=== PATIENT | female | born 1975 | race Caucasian/White ===

== ENCOUNTER 2023-08-17 10:33 | Outpatient (OUT) | payer MEDICAID, SELFPAY ==
--- NOTE | 2023-08-17 11:03 | MM_ITS ---
Patient Name: LUCRECIA LAWTON MR#: [id number] : 1975 Exam Date: 08/17/2023 Ordering Doctor: DR ZANE MANTILLA RADIOLOGY REPORT PROCEDURE: MM TOMOSYNTHESIS SCREENING BI COMPARISON: MG MAMM SCREEN 3D BONI CAD, 11/11/2021. INDICATIONS: Screening Calculator Name NCI Breast Cancer Risk Assessment Tool 5 Year Breast Cancer Risk 1.20% Lifetime Breast Cancer Risk 12.80% Personal Breast Cancer No Personal Ovarian Cancer No Treatments partial nephrectomy Family Cancers Brother with leukemia cancer at age 24; Mother with uterine cancer at age ~40; Grandmother-maternal with cervical cancer at age ~36. LOCATION: [facility] BREAST COMPOSITION: Extremely dense, which lowers the sensitivity of mammography. FINDINGS: DIAGNOSTIC CATEGORY 2--BENIGN FINDING. NO CHANGE FROM COMPARISON. Scattered benign-appearing calcifications are present. Scattered benign-appearing lymph nodes are present. RIGHT BREAST: No significant suspicious finding. LEFT BREAST: No significant suspicious finding. RECOMMENDATIONS: ROUTINE MAMMOGRAM AND CLINICAL EVALUATION IN 12 MONTHS. PLEASE NOTE: A NORMAL MAMMOGRAM DOES NOT EXCLUDE THE POSSIBILITY OF BREAST CANCER. A CLINICALLY SUSPICIOUS PALPABLE LUMP SHOULD BE BIOPSIED. Dictated by: Rinku Navas MD on 08/17/2023 at 12:14 Approved by: Rinku Navas MD on 08/17/2023 at 12:17
== END 2023-08-17 10:34 | disposition home or self-care (01) ==
LOC: MAMMO 10:33
PROVIDERS: PCP Internal Medicine; Visit Provider Obstetrics & Gynecology
DX: Z12.31 Encounter for screening mammogram for malignant neoplasm of breast (principal); Z80.6 Family history of leukemia; Z80.8 Family history of malignant neoplasm of other organs or systems
CPT/HCPCS: 77063; 77067

== ENCOUNTER 2024-01-12 08:55 | Outpatient (OUT) | payer OTHER, SELFPAY ==
--- OUTSIDE RECORDS SUMMARY | 2024-01-12 09:01 | XMS_ITS | CCD ---
Author Organization [facility] Care Team Providers Care Security Trainer Name Role Phone PHYSICIAN, DEFAULT Unavailable Unavailable PHYSICIAN, DEFAULT Unavailable Unavailable CICI MURPHY Unavailable Unavailable ELVIRA WHIPPLE Unavailable Unavailable DWAINE PAZ Unavailable Unavailable Elvira Whipple~[phone] UNKNOWN Primary Care Unavailable GUILLE GOINS Admitting Unavailable GUILLE GOINS Attending Unavailable GUILLE GOINS Referring Unavailable HaJoe mayerit Melvin Admitting Unavailable Hamoreno Astrit H Attending Unavailable Elvira Whipple~[phone] UNKNOWN Primary Care Unavailable Elliott Mandujano Admitting Unavailable Elliott Mandujano Attending Unavailable Elvira Whipple~[phone] UNKNOWN Primary Care Unavailable Trae Julian MD Primary Care Provider Trae [place] Unavailable [phone] Trae Julian MD Unavailable MD Trae Julian Primary Care Provider [phone] DO Zane Mantilla Attending Provider IESHA, DR LARKIN Admitting Unavailable IESHA, DR LARKIN Attending Unavailable IESHA, DR LARKIN Referring Unavailable IESHA, DR LARKIN Primary Care Unavailable IESHA, DR LARKIN Consulting Unavailable IESHA, DR LARKIN Primary Care Unavailable MYNOR LIANG Admitting Unavailable MYNOR LIANG Attending Unavailable RANDY, DR ALEXANDRA Colin Consulting Unavailable DAOMN, DR ADAIR Consulting Unavailable MYNOR LIANG Consulting Unavailable MIGNON TAVAREZ Consulting Unavailable JOSE RAFAEL, DR DEGROOT Admitting Unavailable VISCI, DR DEGROOT Attending Unavailable IESHA, DR LARKIN Primary Care Unavailable DAYTON, DR NAKIA Acharya Consulting Unavailable VISCI, DR DEGROOT Consulting Unavailable IESHA, DR LARKIN Admitting Unavailable IESHA, DR LARKIN Attending Unavailable IESHA, DR LARKIN Primary Care Unavailable MARÍA SABILLON Consulting Unavailable IESHA, DR LARKIN Consulting Unavailable VISCI, DR DEGROOT Admitting Unavailable VISCI, DR DEGROOT Attending Unavailable HILL, DR LARKIN Primary Care Unavailable VISCI, DR DEGROOT Consulting Unavailable JenniferMayran Unavailable Gualberto Jacobsen Unavailable MD Trae Julian Primary Care Provider MD Gualberto Jacobsen Attending Provider [phone] Trae Julian MD Primary Care Provider [phone] Trae [place] Unavailable Trae Julian MD Unavailable TRAE JULIAN Primary Care Unavailable TRAE KRAMER Referring Unavailable TRAE KRAMER Attending Unavailable TRAE JULIAN Primary Care Unavailable WARMINSKI, TANISHA Referring Unavailable TRAE JULIAN Primary Care Unavailable WARMINSKI, TANISHA Referring Unavailable TRAE JULIAN Primary Care Unavailable WARMINSKI, TANISHA Referring Unavailable Frederick PLASTIC MANAGER-C Radha Attending Provider MD Trae Julian Primary Care Provider Risaliti, Radha Admitting Unavailable Risalidion, Radha Attending Unavailable Trae Julian Primary Care Unavailable TRAE JULIAN Attending Unavailable TRAE JULIAN Referring Unavailable MAHNAZ FORDE Attending Unavailable RISALIDION, RADHA R Referring Unavailable Allergies Allergy Classification Reported Allergen(s) Allergy Type Date of Onset Reaction(s) Facility (1 source) 00613,00 Drug allergy (disorder) 06-16-20 09 [facility] (1 source) No Known Medication Allergies; Translations: [No Known Medication Allergies] Propensity to adverse reactions (disorder) [facility] Repository (9 sources) Sulfamethoxazole / Trimethoprim; Translations: [SULFAMETHOXAZOLE-TR IMETHOPRIM] Drug Allergy 07-18-[address] [facility] (4 sources) Sulfonamides (Antibiotic); Translations: [Sulfa (Sulfonamide Antibiotics)] Allergy to substance 04-24-20 [facility] (1 source) Sulfonamides (Antibiotic) Drug allergy (disorder) 08-06-19 19 [facility] Medications Current Medications Medication Drug Class(es) Dates Sig (Normalized) Sig (Original) 1 ml erenumab-aooe 70 mg/ml auto-injector (19 sources) Start: 02-07-2022 inject 70 mg by subcutaneous injection every month Erenumab-Aooe (Aimovig Autoinjector) 70 mg/mL auto-injector Active 70 MG SUBCUT every month April 24, 2022 12:00am take once a month for migraines Comment on above: Inject 1 mL subcutan eously once every month. Hyoscyamine (7 sources) Hyoscyamine 0.12 5 mg ,1 tablet PRN Active ibuprofen 600 mg oral tablet (7 sources) Nonsteroidal Anti-inflammatory Drug Start: 07-27-2022 Ibuprofen Active 600 MG PO Every 6 hours July 27, 2022 1:00am do not exceed 4 doses in a 24 hour period Start: 04-24-2022 End: 07-27-2022 take 600 mg by mouth twice daily Ibuprofen Discontinued 600 MG PO Twice daily April 24, 2022 12:00am July 27, 2022 8:36am iv contrast (will be provided with radiology test) (2 sources) Start: 04-27-2023 End: 04-28-2023 iv contrast (will be provided with radiology test) Indications: History of renal cell carcinoma MRI ABDOMEN Inject, intravenously, once for 1 dose. No IV access, insert saline lock prior to the beginning of sedation, infusion, injection of imaging exam. Discontinue saline lock post exam. If Pt. has a central line or IVAD, may access for administration according to line specific nursing protocol. Once exam is complete flush line and de-access according to line specific nursing protocol in the MR contrast administration guidelines link. 1 Each 0 04/27/2023 04/28/2023 Active Comment on above: MRI ABDOMEN Inject, intravenously, once for 1 dose. No IV access, insert saline lock prior to the beginning of sedation, infusion, injection of imaging exam. Discontinue saline lock post exam. If Pt. has a central line or IVAD, may access for administration according to line specific nursing protocol. Once exam is complete flush line and de-access according to line specific nursing protocol in the MR contrast administration guidelines link. rizatriptan 10 mg disintegrating oral tablet (19 sources) Serotonin-1b and Serotonin-1d Receptor Agonist Start: 05-23-2017 Rizatriptan Active 1 0 MG PO As Directed December 12, 2021 12:00am migraine onset Maxalt 10 MG 1 t ablet orally prn Active Comment on above: rizatriptan 10 mg di sintegrating tablet Take 1 tablet as needed by oral route for 9 days. traMADol hydrochloride 50 mg oral tablet (3 sources) Opioid Agonist Start: 2 take 50 mg by mouth every six hours Tramadol Active 50 MG PO Q6H 8 2 July 27, 2022 1:00am Completed/Discontinued Medications Medication Drug Class(es) Dates Sig (Normalized) Sig (Original) aspirin 81 mg delayed release oral tablet (8 sources) Platelet Aggregation Inhibitor, Nonsteroidal Anti-inflammatory Drug Start: 09-03-2018 take 1 tablet by mouth once daily aspirin, enteric coated (ECOTRIN LOW STRENGTH) 81 mg EC tablet Take 1 tablet by mouth once daily. 0 09/03/2018 Active Comment on above: Take 1 tablet by justin th once daily. cholecalciferol 1.25 mg oral capsule (8 sources) Vitamin D take 1 capsule by mouth every week cholecalciferol, Vitamin D3, (VITAMIN D3) 1,250 mcg (50,000 unit) cap capsule Take 50,000 Units by mouth one time a week. 0 Active Comment on above: Take 50,000 Units by mouth one time a week. Drospirenone-Ethinyl Estradiol (10 sources) Progestin, Estrogen Start: 12-12-2021 End: 07-27-2022 Drospirenone-Ethi nyl Estradiol (Vestura (28)) 3-0.02 mg tablet Discontinued 1 TAB PO Daily December 12, 2021 12:00am July 27, 2022 8:36am Start: 12-12-2021 Drospirenone-E thinyl Estradiol (Vestura (28)) 3-0.02 mg tablet Active 1 TAB PO Daily December 12, 2021 12:00am Start: 05-17-2018 End: 04-27-2023 Leoncio DALEY, 3-0.02 mg per ta blet TAKE 1 TABLET ONCE A DAY- ACTIVE PILLS ONLY- CONTINUOUS USE 0 05/17/2018 04/27/2023 Discontinued (Course of therapy completed) Start: 05-17-2018 Leoncio DALEY, 3- 0.02 mg per tablet TAKE 1 TABLET ONCE A DAY- ACTIVE PILLS ONLY- CONTINUOUS USE 0 05/17/2018 Active Comment on above: TAKE 1 TABLET ONCE A DAY- ACTIVE PILLS ONLY- CONTINUOUS USE ferrous sulfate 325 mg oral tablet (4 sources) Start: 2 End: 2 take 325 mg by mouth once daily Ferrous Sulfate Discontinued 325 MG PO Daily December 12, 2021 12:00am April 24, 2022 8:55am magnesium oxide 500 mg oral tablet (6 sources) End: 3 take 1 tablet by mouth once daily at bedtime Magnesium Oxide 500 mg tab Take by mouth. Take one(1) tablet daily at bedtime. 0 04/27/2023 Discontinued (Discontinued by Patient) Comment on above: Take by mouth. Take one(1) tablet daily at bedtime. propranolol hydrochloride 40 mg oral tablet (8 sources) beta-Adrenergic Rosaura Start: 1 take 1 tablet by mouth once daily propranolol (INDERAL) 40 mg tablet Take 1 tablet by mouth once daily. 20 tablet 3 01/28/2021 Active Comment on above: Take 1 tablet by justin once daily. urea 400 mg/ml topical cream (12 sources) Start: 2 End: 2 Urea Discontinued 1 APPLIC TOPICAL As Directed December 12, 2021 12:00am April 24, 2022 8:56am Start: 09-23-2021 urea (CARMOL) 40 % Indications: Optic nerve swelling APPLY TO FEET TWICE A DAY NEEDED 0 09/23/2021 Active Comment on above: APPLY TO FEET TWICE A DAY NEEDED Problems Active Problems Problem Classification Problem Date Documented Da te Episodic/Chronic Abdominal pain (6 sources) Epigastric pain; Translations: [Right upper quadrant pain] Onset: 8 Episodic Biliary tract disease (1 source) Calculus of gallbladder without cholecystitis without obstruction; Translations: [CALCU GB W/O CHOLECYST W/O OBST] Onset: 2 Episodic Calculus of urinary tract (10 sources) Personal history of urinary calculi; Translations: [Kidney stone] Onset: 2 Episodic Cancer of kidney and renal pelvis (4 sources) History of malignant neoplasm of kidney; Translations: [Personal history of other malignant neoplasm of kidney] Onset: 3 04-27-2023 Episodic Cardiac and circulatory congenital anomalies (8 sources) Patent foramen ovale; Translations: [Atrial septal defect] Onset: 0 01-22-2020 Chronic Coma; stupor; and brain damage (7 sources) Excessive daytime sleepiness - normal night sleep; Translations: [Somnolence] Episodic Contraceptive and procreative management (1 source) Tubal ligation status; Translations: [TUBAL LIGATION STATUS] Onset: 2 Episodic Diabetes mellitus without complication (2 sources) Impaired fasting glucose Episodic Disorders of lipid metabolism (16 sources) Hypertriglyceridemia; Translations: [Pure hyperglyceridemia] Chronic Esophageal disorders (7 sources) Gastroesophageal reflux disease; Translations: [Gastro-esophageal reflux disease without esophagitis] Chronic Headache; including migraine (20 sources) Refractory migraine without aura; Translations: [Chronic migraine without aura, intractable, with status migrainosus] Onset: 1 Chronic Menstrual disorders (11 sources) Irregular periods; Translations: [Irregular menstruation, unspecified] Onset: 1 05-09-2021 Chronic Nausea and vomiting (8 sources) Nausea; Translations: [Nausea] Onset: 4 Episodic Nonspecific chest pain (1 source) Chest pain, unspecified; Translations: [Chest pain, unspecified] Onset: 8 Episodic Nutritional deficiencies (1 source) Vitamin D deficiency, unspecified; Translations: [VITAMIN D DEFICIENCY UNSPECIFIED] Onset: 2 Chronic Other aftercare (1 source) terminal make up operator (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) use of aspirin; Translations: [HALFWAY CURRENT USE OF ASPIRIN] Onset: 2 Episodic Other aftercare (1 source) Other chcf (current) drug therapy; Translations: [OTH HALFWAY CURRENT DRUG THERAPY] Onset: 2 Episodic Other aftercare (1 source) History of malignant neoplasm of retroperitoneum; Translations: [Encounter for follow-up examination after completed treatment for malignant neoplasm] 04-27-2023 Episodic Other aftercare (1 source) Encounter for follow-up examination after completed treatment for malignant neoplasm; Translations: [Encounter for follow-up surveillance of kidney cancer] Onset: 3 Episodic Other diseases of kidney and ureters (8 sources) Renal mass; Translations: [Other specified disorders of kidney and ureter] Onset: 8 08-01-2018 Chronic Other gastrointestinal disorders (7 sources) Dysphagia; Translations: [Dysphagia, unspecified] Episodic Other liver diseases (7 sources) Steatosis of liver; Translations: [Fatty (change of) liver, not elsewhere classified] Chronic Other liver diseases (2 sources) Fatty (change of) liver, not elsewhere classified Chronic Other nervous system disorders (7 sources) Sleep-wake schedule disorder, delayed phase type; Translations: [Circadian rhythm sleep disorder, delayed sleep phase type] Chronic Other nervous system disorders (3 sources) Acute postoperative pain; Translations: [Other acute postprocedural pain] 07-27-2022 Episodic Other nutritional; endocrine; and metabolic disorders (1 source) Hypomagnesemia; Translations: [HYPOMAGNESEMIA] Onset: Chronic Other nutritional; endocrine; and metabolic disorders (7 sources) Metabolic syndrome X; Translations: [Metabolic syndrome] Chronic Other nutritional; endocrine; and metabolic disorders (7 sources) Body mass index 30+ - obesity; Translations: [Body mass index (BMI) 35.0-35.9, adult] Chronic Other nutritional; endocrine; and metabolic disorders (14 sources) Obesity; Translations: [Obesity, unspecified] Chronic Other nutritional; endocrine; and metabolic disorders (7 sources) Gitelman syndrome; 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 Other nutritional; endocrine; and metabolic disorders (7 sources) Body mass index 40+ - severely obese; Translations: [Body mass index (BMI) 40.0-44.9, adult] Chronic Other nutritional; endocrine; and metabolic disorders (3 sources) Obesity, unspecified Chronic Other nutritional; endocrine; and metabolic disorders (2 sources) Metabolic syndrome Chronic Other nutritional; endocrine; and metabolic disorders (1 source) Body mass index (BMI) 35.0-35.9, adult Chronic Other nutritional; endocrine; and metabolic disorders (7 sources) Weight gain; Translations: [Abnormal weight gain] Episodic Residual codes; unclassified (7 sources) Daytime somnolence; Translations: [Other hypersomnia] Chronic Residual codes; unclassified (7 sources) Hypoxia; Translations: [Idiopathic sleep related nonobstructive alveolar hypoventilation] Chronic Residual codes; unclassified (7 sources) Hypnagogic hallucinations; Translations: [Other hallucinations] Episodic Residual codes; unclassified (3 sources) History of partial nephrectomy; Translations: [Acquired absence of kidney] 04-27-2023 Episodic Residual codes; unclassified (1 source) Acquired absence of kidney; Translations: [H/O partial nephrectomy] Onset: 3 Episodic Unclassified (3 sources) COUGH, UNSPECIFIED; Translations: [COUGH, UNSPECIFIED] Onset: 2 Unclassified (1 source) APPOINTMENT CANCELLED 07-16-2023 Past or Other Problems Problem Classification Problem Date Documented Da te Episodic/Chronic Genitourinary symptoms and ill-defined conditions (12 sources) Abnormal urine; Translations: [Unspecified abnormal findings in urine] Onset: 08-01-2018 08-01-2018 Episodic Other lower respiratory disease (8 sources) Dyspnea; Translations: [Shortness of breath] Onset: 01-22-2020 01-22-2020 Episodic Other nutritional; endocrine; and metabolic disorders (8 sources) Abnormal weight gain; Translations: [Abnormal weight gain] Onset: 05-09-2021 05-09-2021 Episodic Other screening for suspected conditions (not mental disorders or infectious disease) (4 sources) Encounter for screening mammogram for malignant neoplasm of breast; Translations: [ENC SCR MAMMO MALIG NEOPLASM BREAST] Onset: 11-11-2021 Episodic Residual codes; unclassified (8 sources) Finding related to blood, organ, or tissue donation; Translations: [Unspecified donor, stem cells] Onset: 01-10-2006 01-10-2006 Episodic Residual codes; unclassified (1 source) Family history of malignant neoplasm of other genital organs; Translations: [FAM HX MALIG NEOPLSM OTH GENIT ORGN] Onset: 11-16-2021 Episodic Unclassified (1 source) COUGH, UNSPECIFIED; Translations: [COUGH, UNSPECIFIED] Onset: 05-09-2022 Results Test Name Value Interpretation Reference Range Facility NM hepatobiliary w pharmon 0 12-11-2023 [place] hepatobiliary w pharm [facility] [place] [address] Nuclear Medicine Report Signed Patient: Jennifer Alejandro MR#: [id number] 12 : 1975 Acct:[id number] Age/Sex: 48 / F ADM Date: 12/11/23 Loc: [place] Room: Type: [facility] CLI Attending Dr: Radha Mack PLASTIC MANAGER-C Copies to: MALLORY Jackson Jeffrey S DO Ordering Provider: Radha Mack NP Date of Service: 12/11/23 NM/NM hepatobiliary w pharm: R11.0 Nuclear Medicine Hepatobiliary imaging with CCK TECHNIQUE: 6.3mCi of technetium 99m labeled mebrofenin was administered intravenously. Sequential planar imaging of the upper abdomen performed. 1.9 uCi of CCK was administered at 60 minutes. HISTORY: RIGHT upper quadrant pain. Nausea. Episode of cramping after administration of CCK. COMPARISON:None Homogeneous uptake of the liver identified. There is early uptake identified within the common bile duct. There is mildly delayed uptake identified in the gallbladder. There is early uptake identified in the small bowel. No significant gallbladder ejection fraction identified with CCK administration. MARGIE/MARGIE hepatobiliary w pharm IMPRESSION: Patent cystic and common bile duct. Mildly delayed uptake within the gallbladder. No significant ejection of radiotracer from the gallbladder after CCK administration. Consider biliary dyskinesia. Impression dictated by: Car Ram M.D.12/11/2023 1:06 PM Dictation Location: [place] [address] Transcribed By: [facility] 12/11/23 1306 Dictated By: Car Ram DO 12/11/23 1303 Signed By: 12/11/23 1306 Normal [facility] Basic metabolic 2000 panelon 04-27-2023 Anion gap [Moles/Vol] 11 mmol/L Normal 9-18 [facility] Comment on above: Order Comment: Angel frazier Type: BLOOD SPECIMEN Ordering Facility: [facility] Address: [address] [place] [address] Performed By: #### 2 4321-2 #### [facility] CLIA [id number] [address] [place] [address] [place] Calcium [Mass/Vol] 9.2 mg/dL Normal 8.5-10.2 [facility] Comment on above: Order Comment: Angel frazier Type: BLOOD SPECIMEN Ordering Facility: [facility] Address: [address] [place] [address] Performed By: #### 2 4321-2 #### [facility] CLIA [id number] [address] [place] [address] [place] Chloride [Moles/Vol] 105 mmol/L Normal 97-105 [facility] Comment on above: Order Comment: Speci men Type: BLOOD SPECIMEN Ordering Facility: [facility] Address: [address] [place] [address] Performed By: #### 2 4321-2 #### [facility] CLIA [id number] [address] [place] [address] [place] CO2 [Moles/Vol] 26 mmol/L Normal 22-30 [facility] Comment on above: Order Comment: Speci men Type: BLOOD SPECIMEN Ordering Facility: [facility] Address: [address] [place] [address] Performed By: #### 2 4321-2 #### [facility] CLIA [id number] [address] [place] [address] [place] Creatinine [Mass/Vol] 0.57 mg/dL Low 0.58-0.96 [facility] Comment on above: Order Comment: Speci men Type: BLOOD SPECIMEN Ordering Facility: [facility] Address: [address] [place] [address] Performed By: #### 2 4321-2 #### [facility] CLIA [id number] [facility] [address] OF [facility] Creatinine and Glomerular filtration rate.predicted panel (S/P/Bld) 114 mL/min/1.73m??? Normal >=60 [facility] Comment on above: Order Comment: Speci men Type: BLOOD SPECIMEN Ordering Facility: [facility] Address: [address] [place] [address] Result Comment: Alie mated Glomerular Filtration Rate (eGFR) is calculated using the 2020 CKD-EPI creatinine equation. This equation utilizes serum creatinine, sex, and age as parameters. The creatinine assay has traceable calibration to isotope dilution-mass spectrometry. Refer to KDIGO guidelines for clinical interpretation. In patients with unstable renal function, e.g. those with acute kidney injury, the eGFR may not accurately reflect actual GFR. Performed By: #### 2 4321-2 #### [facility] CLIA [id number] [address] [place] [address] [place] Glucose [Mass/Vol] 99 mg/dL Normal 74-99 [facility] Comment on above: Order Comment: Angel men Type: BLOOD SPECIMEN Ordering Facility: [facility] Address: [address] [place] [address] Result Comment: The [place] Diabetes Association (ADA) provides guidance for cutoff values for fasting glucose and random glucose. The ADA defines fasting as no caloric intake for at least 8 hours. Fasting plasma glucose results between 100 to 125 mg/dL indicate increased risk for diabetes (prediabetes). Fasting plasma glucose results greater than or equal to 126 mg/dL meet the criteria for diagnosis of diabetes. In the absence of unequivocal hyperglycemia, results should be confirmed by repeat testing. In a patient with classic symptoms of hyperglycemia or hyperglycemic crisis, random plasma glucose results greater than or equal to 200 mg/dL meet the criteria for diagnosis of diabetes. Reference: Standards of Medical Care in Diabetes 2016, [place] [employer]. Diabetes Care. 2016.39(Suppl 1). Performed By: #### 2 4321-2 #### [facility] CLIA [id number] [address] [place] [address] [place] Potassium [Moles/Vol] 3.8 mmol/L Normal 3.7-5.1 [facility] Comment on above: Order Comment: Angel frazier Type: BLOOD SPECIMEN Ordering Facility: [facility] Address: [address] [place] [address] Performed By: #### 2 4321-2 #### [facility] CLIA [id number] [address] [place] [address] [place] Sodium [Moles/Vol] 142 mmol/L Normal 136-144 [facility] Comment on above: Order Comment: Angel frazier Type: BLOOD SPECIMEN Ordering Facility: [facility] Address: [address] [place] [address] [place] [address] Performed By: #### 2 4321-2 #### [facility] CLIA [id number] [address] Urea nitrogen [Mass/Vol] 7 mg/dL Normal 7-21 [facility] Comment on above: Order Comment: Speci men Type: BLOOD SPECIMEN Ordering Facility: [facility] Address: [facility] [place] [address] Performed By: #### 2 4321-2 #### [facility] CLIA [id number] [address] OF [facility] CNOVon 04-27-2023 CNOV Office Visit (UROLMN ) JENNIFER ALEJANDRO ([id number]) 1975 F Date Time Provider Department 04/27/23 3:30 PM TRAE KRAMER During your visit today, we recorded the following information about you: Pulse Blood pressure Weight Height 67/minute 119/80 93.8 kg 1.6 m Tanisha Alvarez APRN.ADMINISTRATIVE OFFICE ASSISTANT 04/27/2023 9:25 PM Signed Chief Complaint: follow up RCC Clinic note from 05/28/2020 copied and updated. HPI: Jennifer Alejandro is a 48 year old female with hx of RCC who presents for follow up evaluation. She is s/p right robotic laparoscopic partial nephrectomy on 08/29/2018. 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 MRI abdomen, CXR, and BMP today are in process. Interval Hx: Overall, doing well. No flank or abdominal pain. No gross ehmaturia. 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 - Surgical margins are negative for carcinoma. - See synoptic report. IMAGING MRI KIDNEY WO/W IVCON 05/04/2021 IMPRESSION: Stable changes following RIGHT partial nephrectomy without recurrence, lymphadenopathy or abdominal metastasis. Marked diffuse hepatic steatosis. XR CHEST 2V FRONTAL/LAT 05/04/2021 IMPRESSION: Slight interstitial prominence with no mass lesion seen. No interval change is seen REVIEW OF SYSTEMS GENERAL:No weight loss, malaise or fevers., SEE HPI GENITOURINARY: Negative for dysuria and hematuria The remainder of the ROS was negative. HISTORIES PAST MEDICAL HISTORY Diagnosis Date Back pain Hypokalemia May-Thurner syndrome Migraine PFO (patent foramen ovale) Renal cell carcinoma (HCC) s/p R robotic laparoscopic partial nephrectomy on 08/29/2018 [facility] Sickle cell trait (HCC) TIA (transient ischemic attack) in her 30's FAMILY HISTORY Problem Relation Age of Onset Diabetes Mother Uterine Cancer Mother dx early 40s Diabetes Maternal Grandfather Leukemia Brother 24 AML Cervical Cancer Maternal Grandmother Leukemia Paternal Uncle No Ocular Disease No Family History SOCIAL HISTORY Social History Tobacco Use Smoking status: Former Packs/day: 1.00 Years: 10.00 Additional pack years: 0.00 Total pack years: 10.00 Types: Cigarettes Start date: 1997 Quit date: 2006 Years since quittin.7 Smokeless tobacco: Never Substance Use Topics Alcohol use: No Drug use: No PHYSICAL EXAMINATION General appearance: Well appearing, alert, in no acute distress, and well-hydrated, well nourished Lungs: Clear to auscultation no wheezing or rhonchi Heart: RRR without murmur, gallop, or rubs. No ectopy Abdomen: Abdomen soft, non-tender. Bowel sounds normal. No masses, organomegaly, Negative CVA tenderness Genitourinary: deferred Assessment (Z08, Z85.528) Encounter for follow-up surveillance of kidney cancer (primary encounter diagnosis) (Z85.528) History of renal cell carcinoma (Z90.5) H/O partial nephrectomy 48 year old female s/p right robotic laparoscopic partial nephrectomy on 08/29/2018 Testing today in process Reviewed NCCN guidelines for surveillance She has no urologic concerns today Plan -Follow up with pending MRI, CXR, and lab results (okay to MyChart with results) -Pending above, f/u virtual visit in 1 year with MRI abdomen, CXR, and BMP Discussed with Dr. Kramer. Tanisha Alvarez APRN.ADMINISTRATIVE OFFICE ASSISTANT Referring Provider: TRAE KRAMER [[id number]] Allergies As of Date: 04/27/2023 Noted Allergy Reaction SULFAMETHOXAZOLE-TRIME THOPRIM 07/18/2018 2 - Rash Date Reviewed: 04/27/2023 Reviewed by: Tanisha Alvarez APRN.ADMINISTRATIVE OFFICE ASSISTANT - Fully Assessed Reason for Visit: Follow Up [171] Primary Visit Diagnosis:Encounter for follow-up surveillance of kidney cancer [Z08, Z85.528] Other Visit Diagnoses:History of renal cell carcinoma [Z85.528] H/O partial nephrectomy [Z90.5] Order(s):BASIC METABOLIC PNL [SQBMP] Order #: [id number] FUTURE XR CHEST 2V FRONTAL/LAT [[id number]] Order #: [id number] FUTURE MRI ABDOMEN WO/W IVCON [[id number]] Order #: [id number] FUTURE iv contrast (will be provided with radiology test)MRI ABDOMEN Inject, intravenously, once for 1 dose. No IV access, insert saline lock prior to the beginning of sedation, infusion, injection of imaging exam. Discontinue saline lock post exam. If Pt. has a central line or IVAD, may access for administration according to line specific nursing protocol. Once exam is complete flush line and de-access according to line specific nursing protocol in the MR contrast administration dennis (more content not included)... Normal [facility] MRI ABDOMEN WO/W IVCONon MRI ABDOMEN WO/W IVCON * * *Final Report* * * DATE OF EXAM: Apr 27 2023 3:17PM QBM 0689 - MRI ABDOMEN WO/W IVCON / PROCEDURE REASON: H/O partial nephrectomy * * * * Physician Interpretation * * * * EXAMINATION: MRI ABDOMEN WITHOUT AND WITH IV CONTRAST CLINICAL HISTORY: History of partial right nephrectomy, surveillance. TECHNIQUE: A renal MRI was performed on a 3 T MR system utilizing the torso phased-array coil. Pulse sequences included: axial precontrast T1 weighted in- and ouv-es-yejha, axial and coronal HASTE, axial DWI with creation of ADC map; axial and coronal T1-VIBE before and after the administration of intravenous gadolinium chelate. Multiple post processing techniques were performed. M: [id number] Contrast: IV administration of 19 ml of Dotarem COMPARISON: MRI kidney 05/04/2021 RESULT: Kidneys, adrenals and ureters: Right kidney: Postoperative changes from partial nephrectomy in the right lower pole. No suspicious foci of enhancement in the surgical bed suggest residual/recurrent disease. Subcentimeter cyst in the upper pole. No solid renal mass or suspicious cystic lesion. No hydronephrosis. Right renal vasculature - Arterial: 2, patent. No early branch (< 1cm). - Venous: 2, no thrombus Right ureter: Single ureter. No hydronephrosis. Right adrenal: Normal, no nodules or thickening Left kidney: No mass. Include: size, cystic/solid; Bosniak classification, signal intensity, enhancement pattern; location and relationship to sinus/collecting system; if surveillance imaging, compare to most recent and original. Left renal vasculature - Arterial: 2, patent No early branch (< 1cm). - Venous: conventional, anterior to the aorta. Left ureter: Single ureter. No hydronephrosis. Left adrenal: Normal, no nodules or thickening Retroperitoneal lymphadenopathy and IV involvement: None Abdomen: Liver: Normal morphology. Diffuse hepatic steatosis. No mass. Biliary: No bile duct dilation. Cholelithiasis. Spleen: No mass. No splenomegaly. Pancreas: No mass or duct dilation. GI tract: No dilation or wall thickening. Lymph nodes (other): No abdominal or pelvic lymphadenopathy. Mesentery/Peritoneum: No ascites or mass. Retroperitoneum: No mass. Vasculature: The celiac axis and SMA are patent. The portal vein and branches, splenic vein, SMV, and hepatic veins are patent. No abdominal aortic aneurysm. Bones/Soft Tissues: No significant finding. Lower thorax: Unremarkable. IMPRESSION: PARTIAL NEPHRECTOMY IN THE RIGHT LOWER POLE WITHOUT EVIDENCE OF RESIDUAL/RECURRENT DISEASE. NO LYMPHADENOPATHY OR ABDOMINAL METASTASIS. DIFFUSE HEPATIC STEATOSIS. CHOLELITHIASIS Software Product Specialist: PSCB Transcribe Date/Time: Apr 27 2023 3:34P Dictated by : TRACIE DAMON MD This examination was interpreted and the report reviewed and electronically signed by: LUIS GONZALEZ MD on Apr 27 2023 5:32PM EST [id number] Normal [facility] ic URINALYSIS, REFLEX MICROSCOP ICon 04-27-2023 Bilirubin Ql (U) Negative Normal Negative [facility] Comment on above: Order Comment: Speci men Type: URINE SPECIMEN Ordering Facility: [facility] Address: [address] [address] Performed By: #### L [id number] #### [facility] CLIA [id number] [address] [place] [address] [place] Clarity (Unsp spec) Clear Normal Clear [facility] Comment on above: Order Comment: Speci men Type: URINE SPECIMEN Ordering Facility: [facility] Address: [address] [place] [address] Performed By: #### L [id number] #### [facility] CLIA [id number] [address] [place] [address] [place] Color (U) Colorless Normal Yellow [facility] Comment on above: Order Comment: Speci men Type: URINE SPECIMEN Ordering Facility: [facility] Address: [address] [place] [address] Performed By: #### L [id number] #### [facility] CLIA [id number] [facility] [place] [address] [place] Glucose Test strip (U) [Mass/Vol] Negative Normal Trace, Negative [facility] Comment on above: Order Comment: Speci men Type: URINE SPECIMEN Ordering Facility: [facility] Address: [address] [address] Performed By: #### L [id number] #### [facility] CLIA [id number] [address] [place] [address] [place] Hemoglobin Ql (U) Negative Normal Negative, Trace [facility] Comment on above: Order Comment: Speci men Type: URINE SPECIMEN Ordering Facility: [facility] Address: [address] Performed By: #### L [id number] #### [facility] CLIA [id number] [address] [place] [address] [place] Ketones Ql (U) Negative Normal Negative, Trace [facility] Comment on above: Order Comment: Speci men Type: URINE SPECIMEN Ordering Facility: [facility] Address: [address] Performed By: #### L [id number] #### [facility] CLIA [id number] [address] [place] [address] [place] Leukocyte esterase Test strip Ql (U) Negative Normal Negative, 25 Vincenzo/uL [facility] Comment on above: Order Comment: Speci men Type: URINE SPECIMEN Ordering Facility: [facility] Address: [address] Performed By: #### L [id number] #### [facility] CLIA [id number] [address] [place] [address] [place] Nitrite Ql (U) Negative Normal Negative [facility] Comment on above: Order Comment: Speci men Type: URINE SPECIMEN Ordering Facility: [facility] Address: [address] [place] [address] Performed By: #### L [id number] #### [facility] CLIA [id number] [address] [place] [address] [place] pH (U) 6.5 [pH] Normal 5.0-8.0 [facility] Comment on above: Order Comment: Speci men Type: URINE SPECIMEN Ordering Facility: [facility] Address: [address] Performed By: #### L [id number] #### [facility] CLIA [id number] [address] [place] [address] [place] Protein (U) [Mass/Vol] Negative Normal Trace, Negative [facility] Comment on above: Order Comment: Speci men Type: URINE SPECIMEN Ordering Facility: [facility] Address: [address] [place] [address] Performed By: #### L [id number] #### [facility] CLIA [id number] [address] [place] [address] [place] Specific gravity (U) [Rel density] 1.014 Normal 1.005-1.030 [facility] Comment on above: Order Comment: Speci men Type: URINE SPECIMEN Ordering Facility: [facility] Address: [address] [place] [address] Performed By: #### L [id number] #### [facility] CLIA [id number] [address] [place] [address] [place] Urobilinogen Ql (U) Negative Normal Negative [facility] Comment on above: Order Comment: Speci men Type: URINE SPECIMEN Ordering Facility: [facility] Address: [address] [place] [address] Performed By: #### L [id number] #### [facility] CLIA [id number] [address] [place] [address] [place] XR CHEST 2V FRONTAL/LATon XR CHEST 2V FRONTAL/LAT * * *Final Report* * * DATE OF EXAM: Apr 27 2023 4:18PM RADHA 5291 - XR CHEST 2V FRONTAL/LAT / PROCEDURE REASON: H/O partial nephrectomy * * * * Physician Interpretation * * * * EXAMINATION: CHEST RADIOGRAPH (2 VIEW FRONTAL and LATERAL) CLINICAL HISTORY: H/O partial nephrectomy MQ: [id number] EXAM DATE/TIME: 04/27/2023 4:18 PM COMPARISON: 05/04/2021 RESULT: Lines, tubes, and devices: None. Lungs and pleura: No new lung consolidation. Question subtle reticular markings. No large pneumothorax or effusion. Mildly decreased lung volume noted on the frontal projection but probably adequately expanded on the lateral projection. Cardiomediastinal silhouette: Normal cardiomediastinal silhouette. Bones and soft tissues: Stable skeletal structures. IMPRESSION: No acute radiographic abnormality. Software Product Specialist: ALEYDA Transcribe Date/Time: Apr 29 2023 4:37P Dictated by : SANDRA ARCE MD This examination was interpreted and the report reviewed and electronically signed by: SANDRA ARCE MD on Apr 29 2023 4:40PM EST [id number] Normal [facility] A1C HEMOGLOBINon 09-05-2022 HbA1c (Bld) [Mass fraction] 5.1 % [employer] Other HbA1c (Bld) [Mass fraction]o n 09-05-[address] [facility] [employer] Other CULTURE URINEon 08-14-2022 CULTURE URINE Culture Observations : NO GROWTH. Normal [facility] Comment on above: Performed By: #### U RCX ####[facility] [address] [address]Dr. Obi Miller UA (CLEAN/CATCH) SUPERVISOR LATHING/MICRO I F IND.on 08-14-2022 Bilirubin Ql (U) Negative Normal NEGATIVE [facility] Comment on above: Performed By: #### U MICRO, UACSIND ####[facility] [address] [address]Dr. Obi Miller Clarity (U) CLEAR Normal CLEAR [facility] [place] Comment on above: Performed By: #### U MICRO, UACSIND ####[facility] [address] [address]Dr. Obi Miller Color (U) LT. YELLOW Normal YELLOW [facility] Comment on above: Performed By: #### U MICRO, UACSIND ####[facility] [address] [address]Dr. Obi Miller Glucose Ql (U) Negative Normal NEGATIVE [facility] Comment on above: Performed By: #### U MICRO, UACSIND ####[facility] [address] [address]Dr. Obi Miller Hemoglobin Ql (U) TRACE-INTACT Abnormal NEGATIVE [facility] Comment on above: Performed By: #### U MICRO, UACSIND ####[facility] [address] [address]Dr. Obi Miller Ketones Ql (U) Negative Normal NEGATIVE [facility] Comment on above: Performed By: #### U MICRO, UACSIND ####[facility] [address] [place], [place] [address]Dr. Obi Miller LEUKOCYTES Negative Normal NEGATIVE [facility] [place] Comment on above: Performed By: #### U MICRO, UACSIND ####[facility] [address] [place], [place] [address]Dr. Obi Miller Nitrite Ql (U) Negative Normal NEGATIVE [facility] Comment on above: Performed By: #### U MICRO, UACSIND ####[facility] [address] [place], [place] [address]Dr. Obi Miller pH (U) 6.0 [pH] Normal 5-9 [facility] [place] Comment on above: Performed By: #### U MICRO, UACSIND ####[facility] [address] [place], [place] [address]Dr. Obi Miller SPEC GRAVITY 1.010 Normal 1.005-<=1.025 [facility] Comment on above: Performed By: #### U MICRO, UACSIND ####[facility] [address] [place], [place] [address]Dr. Obi Miller UA PROTEIN Negative Normal NEGATIVE/ TRACE [facility] Comment on above: Performed By: #### U MICRO, UACSIND ####[facility] [address] [place], [place] [address]Dr. Obi Miller UR MICRO IND INDICATED Normal [facility] Comment on above: Performed By: #### U MICRO, UACSIND ####[facility] [address] [place], [place] [address]Dr. Obi Miller Urobilinogen Qn (U) 0.2 {Pascale'U}/dL Normal 0.2 - 1.0 [facility] Comment on above: Performed By: #### U MICRO, UACSIND ####[facility] [address] [address]Dr. Obi Miller URINE MICROSCOPIC ONLYon BACTERIA NONE SEEN Normal NONE SEEN [facility] Comment on above: Performed By: #### U MICRO, UACSIND ####[facility] [address] [address]Dr. Obi Miller Bacteria identified Cx Nom (U) NOT INDICATED Normal [facility] Comment on above: Performed By: #### U MICRO, UACSIND ####[facility] [address] [place], [place] [address]Dr. Obi Miller CAST NONE SEEN Normal NONE SEEN [facility] Comment on above: Performed By: #### U MICRO, UACSIND ####[facility] [address] [place], [place] [address]Dr. Obi Miller Crystals LM Nom (Urine sed) NONE SEEN Normal NONE SEEN [facility] Comment on above: Performed By: #### U MICRO, UACSIND ####[facility] [address] [place], [place] [address]Dr. Obi Miller Epithelial cells LM Ql (Urine sed) NONE SEEN Normal NONE SEEN /RARE [facility] Comment on above: Performed By: #### U MICRO, UACSIND ####[facility] [address] [place], [place] [address]Dr. Obi Miller MUCOUS NONE SEEN Normal NONE SEEN [facility] Comment on above: Performed By: #### U MICRO, UACSIND ####[facility] [address] [address]Dr. Obi Miller RBC 0-2 Normal 0-2 [facility] Comment on above: Performed By: #### U MICRO, UACSIND ####[facility] [address] [address]Dr. Obi Miller WBC NONE SEEN Normal NONE SEEN [facility] Comment on above: Performed By: #### U MICRO, UACSIND ####[facility] [address] [place], [place] [address]PlHailey CARABALLOOVnicole 08-08-2022 CNOV Office Visit (UROLMN ) JENNIFER ALEJANDRO ([id number]) 1975 F Date Time Provider Department 08/08/22 2:10 PM TRAE KRAMER During your visit today, we recorded the following information about you: Referring Provider: SELF [[id number]] Allergies As of Date: 08/08/2022 Noted Allergy Reaction SULFAMETHOXAZOLE-TRIME THOPRIM 07/18/2018 2 - Rash Date Reviewed: 10/19/2021 Reviewed by: Nancy Ortiz MD - Fully Assessed Primary Visit Diagnosis:APPOINTMENT CANCELLED Prescriptions as of 07/16/2023 - erenumab-aooe (AIMOVIG AUTOINJECTOR) 70 mg/mL auto-injector Inject 1 mL subcutaneously once every month. - urea (CARMOL) 40 % APPLY TO FEET TWICE A DAY NEEDED - propranolol (INDERAL) 40 mg tablet Take 1 tablet by mouth once daily. - cholecalciferol, Vitamin D3, (VITAMIN D3) 1,250 mcg (50,000 unit) cap capsule Take 50,000 Units by mouth one time a week. - aspirin, enteric coated (ECOTRIN LOW STRENGTH) 81 mg EC tablet Take 1 tablet by mouth once daily. - rizatriptan (MAXALT ICE PULLER) 10 mg disintegrating tablet rizatriptan 10 mg disintegrating tablet Take 1 tablet as needed by oral route for 9 days. 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] 01/10/2006 1.2 Migraine with aura [G43.109] 09/13/2010 1.5.1 Chronic migraine [346.71] [G43.719] 09/13/2010 A1.1.2 Menstrually-related migraine without au*09/13/2010 4.7 Hemicrania continua [339.41] [G44.51] 09/13/2010 09/13/2010 Renal mass [N28.89] 08/01/2018 Abnormal urine findings [R82.90] 08/01/2018 PFO (patent foramen ovale) [Q21.12] 01/22/2020 SOB (shortness of breath) [R06.02] 01/22/2020 Irregular menses [N92.6] 05/09/2021 Abnormal weight gain [R63.5] 05/09/2021 Encounter Status:Closed by HARVINDER SOTELO on 07/16/23 Normal [facility] CARDIAC JOEL 3-6on 2 CK [Catalytic activity/Vol] 30 U/L Normal 26-192 [facility] [place] Comment on above: Performed By: #### C MREP ####[facility] [address] [address]Dr. Obi Miller CK.MB [Mass/Vol] ng/mL Normal <=3.60 [facility] Comment on above: Performed By: #### C MREP ####[facility] [address] [address]Dr. Obi Miller HSTROP 4.6 pg/mL Normal 4.0-51.3 [facility] Comment on above: Result Comment: CUT- OFF POINTS HAVE BEEN ESTABLISHED BASED ON THE FOURTH UNIVERSAL DEFINITIONS OF MYOCARDIAL INFARCTION. THE UPPER REFERENCE LIMIT (URL) OF TROPONIN, DEFINED THE 99TH PERCENTILE OF cTnI DISTRIBUTION IN A REFERENCE POPULATION, HAS BEEN CONFIRMED THE DECISION THRESHOLD FOR ME DIAGNOSIS. Performed By: #### C MREP ####[facility] [address] [address]Dr. Obi Miller CARDIAC JOEL ADMITon 2 022 CK [Catalytic activity/Vol] 41 U/L Normal 26-192 [facility] Comment on above: Performed By: #### C MADM, BMP, LIVER ####[facility] [address] [id number] Miller CK.MB [Mass/Vol] 0.38 ng/mL Normal <=3.60 [facility] Comment on above: Performed By: #### C STAN BROWN, LIVER ####[facility] [address] [place], [place] [address]Fz. Obi Miller HSTROP <4.0 Normal 4.0-51.3 [facility] Comment on above: Result Comment: CUT- OFF POINTS HAVE BEEN ESTABLISHED BASED ON THE FOURTH UNIVERSAL DEFINITIONS OF MYOCARDIAL INFARCTION. THE UPPER REFERENCE LIMIT (URL) OF TROPONIN, DEFINED THE 99TH PERCENTILE OF cTnI DISTRIBUTION IN A REFERENCE POPULATION, HAS BEEN CONFIRMED THE DECISION THRESHOLD FOR ME DIAGNOSIS. Performed By: #### C STAN BROWN, LIVER ####[facility] [address] [id number] Miller YVONNE 25 ng/mL Normal 9-82 [facility] [place] Comment on above: Performed By: #### C STAN BROWN, LIVER ####[facility] [address] [id number] Miller CBC AUTO DIFFon 07-19-2022 BASO # 0.1 103/ul Normal 0.0-0.1 [facility] [place] Comment on above: Performed By: #### C BC #### [facility] [address] [address] [address] Obi Miller Basophils/100 WBC (Bld) 0.6 % Normal 0.2-2.0 [facility] [place] Comment on above: Performed By: #### C BC #### [facility] [address] [address] [address] Obi Miller EO # 0.1 103/ul Normal 0.0-0.7 [facility] Comment on above: Performed By: #### C BC #### [facility] [address] [address] [address] Obi Miller Eosinophils/100 WBC (Bld) 0.8 % Critically low 0.9-7.0 [facility] Comment on above: Performed By: #### C BC #### [facility] [address] [address] [address] Obi Miller Erythrocyte distribution width (RBC) [Ratio] 12.5 % Normal 11.0-15.0 [facility] [place] Comment on above: Performed By: #### C BC #### [facility] [address] [address] [address] Obi Miller Hematocrit (Bld) [Volume fraction] 41.7 % Normal 36.0-48.0 [facility] [place] Comment on above: Performed By: #### C BC #### [facility] [address] [place] [address] Dr. Obi Miller Hemoglobin (Bld) [Mass/Vol] 14.9 g/dL Normal 12.0-16.0 [facility] [place] Comment on above: Performed By: #### C BC #### [facility] [address] [place] [address] Dr. Obi Miller IG # 0.00 10e3/ul Normal 0.00-0.03 [facility] [place] Comment on above: Performed By: #### C BC #### [facility] [address] [place] [address] Dr. Obi Miller IG % 0.2 % Normal 0.0-0.5 [facility] [place] Comment on above: Performed By: #### C BC #### [facility] [address] [place] [address] Dr. Obi Miller LYMPH # 3.0 103/ul Normal 1.2-3.8 [facility] [place] Comment on above: Performed By: #### C BC #### [facility] [address] [place] [address] Dr. Obi Miller Lymphocytes/100 WBC (Bld) 27.3 % Normal 20.5-60.0 [facility] [place] Comment on above: Performed By: #### C BC #### [facility] [address] [place] [address] Dr. Obi Miller MANUAL DIFF REQ NO Normal [facility] Comment on above: Performed By: #### C BC #### [facility] [address] [place] [address] Dr. Obi Miller MCH (RBC) [Entitic mass] 29.2 pg Normal 26.7-34.0 [facility] [place] Comment on above: Performed By: #### C BC #### [facility] [address] [address] [address] Obi Miller MCHC (RBC) [Mass/Vol] 35.7 g/dL Critically high 29.9-35.2 [facility] [place] Comment on above: Performed By: #### C BC #### [facility] [address] [address] [address] Obi Miller MCV (RBC) [Entitic vol] 81.8 fL Normal 81.0-99.0 [facility] [place] Comment on above: Performed By: #### C BC #### [facility] [address] [address] [address] Obi Miller MONO # 0.7 103/ul Normal 0.3-0.8 [facility] [place] Comment on above: Performed By: #### C BC #### [facility] [address] [place] [address] Dr. Obi Miller Monocytes/100 WBC (Bld) 6.8 % Normal 1.7-12.0 [facility] [place] Comment on above: Performed By: #### C BC #### [facility] [address] [address] [address] Obi Miller NEUT # 7.1 103/ul Critically high 1.4-6.5 [facility] Comment on above: Performed By: #### C BC #### [facility] [address] [address] [address] Obi Miller Neutrophils/100 WBC (Bld) 64.3 % Normal 43.0-75.0 [facility] Comment on above: Performed By: #### C BC #### [facility] [address] [address] [address] Obi Miller Platelet mean volume (Bld) [Entitic vol] 9.7 fL Normal 9.5-13.5 [facility] Comment on above: Performed By: #### C BC #### [facility] [address] [address] [address] Obi Miller PLT 329 103/ul Normal 150-450 [facility] Comment on above: Performed By: #### C BC #### [facility] [address] [place], [place] [address] Dr. Obi Miller RBC 5.10 106/ul Normal 4.20-5.40 [facility] Comment on above: Performed By: #### C BC #### [facility] [address] [place], [place] [address] Dr. Obi Miller WBC 11.0 103/ul Normal 4.0-11.0 [facility] [place] Comment on above: Performed By: #### C BC #### [facility] [address] [place], [place] [address] ABD/PELV W CONon 07-19-[address] ABD/PELV W CON EXAM: CT Abd Pelvis W Con 07/19/2022 5:25 AM EST CLINICAL STATEMENT: Epigastric pain COMPARISON: No prior studies are available at the time of dictation. TECHNIQUE: Helically acquired images were obtained of the abdomen and pelvis following 100 cc of Omnipaque 300 IV contrast. No oral contrast was administered. AEC is utilized. 2-D reconstructed images are provided. FINDINGS: Hepatomegaly with fatty infiltration of the liver. Tiny gallstone with mild gallbladder wall thickening. May correlate gallbladder ultrasound. The upper abdominal solid organs are unremarkable. There is no bowel obstruction or free air. There is no ascites. There is no evidence of aortic aneurysm or dissection. The celiac artery, superior mesenteric artery, and superior mesenteric vein are grossly patent. There is no retroperitoneal adenopathy. There is no appendicitis or diverticulitis. Enlarged lobulated fibroid uterus. There are no pelvic masses or loculated fluid collections. The lung bases are clear. There are no destructive bone lesions identified. IMPRESSION: Hepatomegaly with fatty infiltration of the liver. Tiny gallstone with mild gallbladder wall thickening. May correlate gallbladder ultrasound. Enlarged lobulated fibroid uterus. FOLLOW-UP: Follow-up as clinically indicated. Electronically authenticated by: MIGNON SAID Date: 2022-07-19 05:26 Normal [facility] ER URINE PROFILEon 2 Bilirubin Ql (U) Negative Normal NEGATIVE [facility] Comment on above: Performed By: #### E RUR UMDIANERO ####[facility] [address] [place], [place] [address]WcDr. Obi Miller Clarity (U) CLEAR Normal CLEAR [facility] Comment on above: Performed By: #### Cliff POWELL UMICRO ####[facility] [address] [address]Dr. Obi Miller Color (U) YELLOW Normal YELLOW [facility] Comment on above: Performed By: #### Cliff POWELL UMICRO ####[facility] [address] [address]Dr. Obi Miller ERUAHD A micrscopic examination will be performed if indicated. Normal [facility] Comment on above: Performed By: #### Cliff POWELL UMICRO ####[facility] [address] [place], [place] [address]Dr. Obi Miller Glucose Ql (U) Negative Normal NEGATIVE [facility] Comment on above: Performed By: #### Cliff POWELL UMICRO ####[facility] [address] [place], [place] [address]Dr. Obi Miller Hemoglobin Ql (U) MODERATE Abnormal NEGATIVE [facility] Comment on above: Performed By: #### Cliff POWELL UMICRO ####[facility] [address] [place], [place] [address]Dr. Obi Miller Ketones Ql (U) Negative Normal NEGATIVE [facility] Comment on above: Performed By: #### AURA CLINTONICRO ####[facility] [address] [place], [place] [address]Dr. Obi Miller LEUKOCYTES Negative Normal NEGATIVE [facility] Comment on above: Performed By: #### AURA CLINTONICRO ####[facility] [address] [place], [place] [address]Dr. Obi Miller Nitrite Ql (U) Negative Normal NEGATIVE [facility] Comment on above: Performed By: #### SHELLIE CLINTONRO ####[facility] [address] [place], [place] [address]Dr. Obi Miller pH (U) 6.5 [pH] Normal 5-9 [facility] Comment on above: Performed By: #### SHELLIE CLINTONRO ####[facility] [address] [address]Dr. Obi Miller SPEC GRAVITY <=1.005 Abnormal 1.005-<=1.025 [facility] Comment on above: Performed By: #### BRANDT CLINTON ####[facility] [address] [address]Dr. Obi Miller UA PROTEIN Negative Normal NEGATIVE/ TRACE [facility] Comment on above: Performed By: #### BRANDT CLINTON ####[facility] [address] [address]Dr. Obi Miller UR MICRO IND INDICATED Normal [facility] [place] Comment on above: Performed By: #### BRANDT CLINTON ####[facility] [address] [address]Dr. Obi Miller Urobilinogen Qn (U) 0.2 {Pascale'U}/dL Normal 0.2 - 1.0 [facility] [place] Comment on above: Performed By: #### SHELLIE CLINTONRO ####[facility] [address] [address]DrHailey Miller LACTATE/LACTIC ACIDon 2021 Lactate [Moles/Vol] 3.0 mmol/L Critically high 0.4-1.9 [facility] [place] Comment on above: Performed By: #### L ACT #### [facility] [address] [address] [address] Obi Miller LIVER PROFILEon 07-19-2022 Albumin [Mass/Vol] 3.6 g/dL Normal 3.4-5.0 [facility] Comment on above: Performed By: #### C MADM, BMP, LIVER ####[facility] [address] [address]DrHailey Miller Albumin/Globulin [Mass ratio] 0.9 {ratio} Normal [facility] [place] Comment on above: Performed By: #### C MADM, BMP, LIVER ####[facility] [address] [address]DrHailey Miller ALP [Catalytic activity/Vol] 73 U/L Normal 46-116 [facility] Comment on above: Performed By: #### C KEVIN BMP, LIVER ####[facility] [address] [address]Dr. Obi Miller ALT [Catalytic activity/Vol] 32 U/L Normal 14-59 [facility] [place] Comment on above: Performed By: #### C KEVIN BMP, LIVER ####[facility] [address] [address]Dr. Obi Miller AST [Catalytic activity/Vol] 17 U/L Normal 15-37 [facility] [place] Comment on above: Performed By: #### C KEVIN BMP, LIVER ####[facility] [address] [address]Dr. Obi Miller BILI, CONJUGATED 0.1 mg/dL Normal 0.0-0.2 [facility] Comment on above: Performed By: #### C KEVIN BMP, LIVER ####[facility] [address] [place], [place] [address]Dr. Obi Miller Bilirubin [Mass/Vol] 0.2 mg/dL Normal 0.2-1.0 [facility] [place] Comment on above: Performed By: #### C KEVIN BMP, LIVER ####[facility] [address] [place], [place] [address]Dr. Obi Miller Globulin (S) [Mass/Vol] 3.8 g/dL Normal [facility] [place] Comment on above: Performed By: #### C KEVIN BMP, LIVER ####[facility] [address] [place], [place] [address]Dr. Obi Miller Protein [Mass/Vol] 7.4 g/dL Normal 6.4-8.2 [facility] Comment on above: Performed By: #### C KEVIN BMP, LIVER ####[facility] [address] [place], [place] [address]Dr. Obi Miller PROF CHEM 8 (BAS METB)on Anion gap [Moles/Vol] 12.8 mmol/L Normal [facility] [place] Comment on above: Performed By: #### C KEVIN BMP, LIVER ####[facility] [address] [address]Dr. Obi Miller Calcium [Mass/Vol] 10.1 mg/dL Normal 8.5-10.1 [facility] Comment on above: Performed By: #### C KEVIN BMP, LIVER ####[facility] [address] [address]Dr. Obi Miller Chloride [Moles/Vol] 101 mmol/L Normal 98-107 [facility] [place] Comment on above: Performed By: #### C KEVIN BMP, LIVER ####[facility] [address] [address]Dr. Obi Miller CO2 [Moles/Vol] 27.3 mmol/L Normal 21.0-32.0 [facility] Comment on above: Performed By: #### C KEVIN BMP, LIVER ####[facility] [address] [place], [place] [address]Dr. Obi Miller Creatinine [Mass/Vol] 0.83 mg/dL Normal 0.55-1.02 [facility] [place] Comment on above: Performed By: #### C KEVIN BMP, LIVER ####[facility] [address] [address]Dr. Obi Miller EGFR-AF KOSOVAN >60 Normal >=60 [facility] Comment on above: Performed By: #### C KEVIN BMP, LIVER ####[facility] [address] [address]Dr. Obi Miller EGFR-NON AF KOSOVAN >60 Normal >=60 [facility] [place] Comment on above: Performed By: #### C KEVIN BMP, LIVER ####[facility] [address] [address]Dr. Obi Miller Glucose [Mass/Vol] 134 mg/dL Critically high 74-106 [facility] Comment on above: Performed By: #### C MADJame BMP, LIVER ####[facility] [address] [address]Dr. Obi Miller Potassium [Moles/Vol] 3.1 mmol/L Critically low 3.5-5.1 [facility] Comment on above: Performed By: #### C STAN BROWN, LIVER ####[facility] [address] [address]Dr. Mariselaben Miller Sodium [Moles/Vol] 138 mmol/L Normal 136-145 [facility] Comment on above: Performed By: #### C STAN BROWN, LIVER ####[facility] [address] [address]Dr. Obi Miller Urea nitrogen [Mass/Vol] 12.0 mg/dL Normal 7.0-18.0 [facility] Comment on above: Performed By: #### C STAN BROWN, LIVER ####[facility] [address] [address]Dr. Obi Miller Urea nitrogen/Creatinin e [Mass ratio] 14.5 mg/mg Normal [facility] [place] Comment on above: Performed By: #### STAN AGUILAR, LIVER ####[facility] [address] [address]Dr. Obi Miller URINE MICROSCOPIC ONLYon BACTERIA TRACE Abnormal NONE SEEN [facility] Comment on above: Performed By: #### SHELLIE CLINTONRO ####[facility] [address] [address]Dr. Obi Miller Bacteria identified Cx Nom (U) NOT INDICATED Normal [facility] Comment on above: Performed By: #### Cliff POWELL UMDIANERO ####[facility] [address] [address]Dr. Obi Miller CAST NONE SEEN Normal NONE SEEN [facility] Comment on above: Performed By: #### Cliff POWELL UMDIANERO ####[facility] [address] [place], [place] [address]Dr. Obi Miller Crystals LM Nom (Urine sed) NONE SEEN Normal NONE SEEN [facility] Comment on above: Performed By: #### Cliff POWELL UMICRO ####[facility] [address] [address]Dr. Obi Miller Epithelial cells LM Ql (Urine sed) FEW Abnormal NONE SEEN /RARE [facility] Comment on above: Performed By: #### E ALECR UMICRO ####[facility] [address] [place], [place] [address]Pg. Obi Miller MUCOUS NONE SEEN Normal NONE SEEN [facility] Comment on above: Performed By: #### E RUR, UMICRO ####[facility] [address] [place], [place] [address]Kq. Obi Miller RBC 0-2 Normal 0-2 [facility] [place] Comment on above: Performed By: #### E RUR, UMICRO ####[facility] [address] [place], [place] [address]Hv. Obi Miller WBC 2-5 Abnormal NONE SEEN [facility] Comment on above: Performed By: #### E RUR, UMICRO ####[facility] [address] [id number]. Obi Miller US SINGLE QUAD RT UPPERon US SINGLE QUAD RT UPPER EXAMINATION: US SINGLE QUAD RT UPPER HISTORY: Pain ; acute epigastric pain COMPARISON: CT abdomen pelvis 07/19/2022 TECHNIQUE: Transabdominal evaluation of the right upper quadrant. FINDINGS: LIVER: Mild fatty infiltration. Color Doppler demonstrates patent hepatic veins. PORTAL VEIN: Duplex Doppler demonstrates normal hepatopetal flow pattern with flow velocity averaging 36 cm/s. GALLBLADDER: 1 cm stone within gallbladder neck. No gallbladder wall thickening or pericholecystic free fluid. Negative sonographic Hernandez's sign. BILIARY: No abnormal dilation or stones. Common bile duct diameter is within normal limits. PANCREASE: No visible mass, abnormal atrophy, or duct dilation. KIDNEY: No hydronephrosis. No visible mass or stones. Size: 11.8 x 5.8 x 5.0 cm IMPRESSION: 1. Stone within gallbladder neck which may be intermittently obstructing. No evidence of acute cholecystitis. Electronically authenticated by: ALEXANDRA PADILLA Date: 2022-07-19 07:44 Normal [facility] XR CHEST 2 Von 07-19-2022 XR CHEST 2 V EXAM: CHEST PA AND L AT (2 VIEWS) 07/19/2022 5:23 AM EST CLINICAL STATEMENT: Epigastric pain. COMPARISON: No prior studies are available at the time of dictation. TECHNIQUE: PA and lateral radiograph of the chest are submitted. FINDINGS: There is no acute airspace disease. The cardiac silhouette is normal. The costophrenic recesses are sharp. No pneumothorax. The bony elements are unremarkable. IMPRESSION: No acute cardiopulmonary process. FOLLOW-UP: Follow-up as clinically indicated. Electronically authenticated by: MIGNON TAVAREZ Date: 2022-07-19 05:24 Normal [facility] [place] XR CHEST 2 Von 05-09-2022 XR CHEST 2 V EXAM: XR CHEST 2 V HISTORY: Cough COMPARISON: None. TECHNIQUE: Upright PA and lateral chest x-ray FINDINGS: The heart is not enlarged and the vasculature is not distended. No acute infiltrate, effusion or pneumothorax is identified. The osseous structures are grossly intact. IMPRESSION: No acute infiltrate or evidence of cardiac decompensation. Comparison with a previous study would be helpful in determining the chronicity of these findings. Electronically authenticated by: MARÍA SABILLON Date: 2022-05-09 15:26 Normal [facility] [place] US Gallbladderon 01-06-2022 US Gallbladder HISTORY: Nausea FINDINGS: Diffuse hepatic fatty infiltration, smooth contour. No ascites. No intrahepatic mass or evidence of metastatic disease. No biliary ductal dilatation, common bile duct 4 mm (normal). Mild diffuse pancreatic enlargement, no focal mass or neighboring inflammation. No pancreatic ductal dilatation. 1.0 cm dependent layering shadowing gallstone. Several millimeter echogenic and minimally shadowing foci, likely cholesterolosis and/or several millimeter polyps. No pericholecystic fluid or positive sonographic Hernandez Sign. Grossly normal right kidney (history of partial nephrectomy). No focal mass or abnormal fluid collection. No ascites. IMPRESSION: 1. Cholelithiasis, polyps. No evidence of acute cholecystitis or biliary obstruction. 2. Diffuse hepatic fatty infiltration. Report reported and signed by Luis Stephens on 01/06/2022 [address] [facility] Assistant Professor [employer] XR Chest 2 Views*on 12-01-19 22 XR Chest 2 Views* HISTORY: Shortness o f breath. Dyspnea on exertion. History of smoking. COMPARISON: Chest x-rays 06/03/2020 TECHNIQUE: Frontal and lateral views of the chest FINDINGS: The cardiomediastinal silhouette is within normal limits. No pneumothorax, pleural effusion, or consolidation. Bones of the thorax appear intact. IMPRESSION: No radiographic evidence of acute intrathoracic process. Report reported and signed by Trae Harp on 12/06/2021 [address] [facility] Assistant Professor [employer] MG MAMM SCREEN 3D BONI CADon 11-11-2021 MG MAMM SCREEN 3D BONI CAD Patient: JENNIFER ALEJANDRO Exam Date: 11/11/2021 : 1975 Gender:F Ordering : DR ZANE MANTILLA Admission #: [id number] Family : Order #: [id number] CLICK HERE TO VIEW EXAM RADIOLOGY REPORT PROCEDURE: MAMMOGRAM SCREENING 3D BILATERAL CAD COMPARISON: MG MAMM SCREEN BONI W CAD, 02/21/2019. MG MAMM SCREEN BONI W CAD, 07/09/2020. INDICATIONS: Screening mammography Calculator Name NCI Breast Cancer Risk Assessment Tool 5 Year Breast Cancer Risk 1.10% Lifetime Breast Cancer Risk 13.10% Personal Breast Cancer No Personal Ovarian Cancer No Treatments partial nephrectomy Family Cancers Mother with uterine cancer at age 40; Grandmother-maternal with cervical cancer at age 36. LOCATION: [facility] BREAST COMPOSITION: Extremely dense, which lowers the sensitivity of mammography. FINDINGS: DIAGNOSTIC CATEGORY 1--NEGATIVE. NO CHANGE FROM COMPARISON ASSESSMENT. Scattered benign-appearing calcifications are present. Scattered benign-appearing lymph nodes are present. RIGHT BREAST: No significant suspicious finding. LEFT BREAST: No significant suspicious finding. RECOMMENDATIONS: ROUTINE MAMMOGRAM AND CLINICAL EVALUATION IN 12 MONTHS. PLEASE NOTE: A NORMAL MAMMOGRAM DOES NOT EXCLUDE THE POSSIBILITY OF BREAST CANCER. A CLINICALLY SUSPICIOUS PALPABLE LUMP SHOULD BE BIOPSIED. Dictated by: Nakia Navas MD on 11/11/2021 at 10:38 Approved by: Nakia Navas MD on 11/11/2021 at 10:39 Normal [facility] CBC AUTO DIFFon 10-17-2021 BASO # 0.1 103/ul Normal 0.0-0.1 [facility] Comment on above: Performed By: #### C BC #### [facility] [address] [place], [place] [address] Dr. Obi Miller Basophils/100 WBC (Bld) 0.6 % Normal 0.2-2.0 [facility] [place] Comment on above: Performed By: #### C BC #### [facility] [address] [place], [place] [address] Dr. Obi Miller EO # 0.2 103/ul Normal 0.0-0.7 [facility] Comment on above: Performed By: #### C BC #### [facility] [address] [place] [address] Dr. Obi Miller Eosinophils/100 WBC (Bld) 2.2 % Normal 0.9-7.0 [facility] [place] Comment on above: Performed By: #### C BC #### [facility] [address] [place] [address] Dr. Obi Miller Erythrocyte distribution width (RBC) [Ratio] 12.6 % Normal 11.0-15.0 [facility] [place] Comment on above: Performed By: #### C BC #### [facility] [address] [place] [address] Dr. Obi Miller Hematocrit (Bld) [Volume fraction] 40.1 % Normal 36.0-48.0 [facility] [place] Comment on above: Performed By: #### C BC #### [facility] [address] [place] [address] Dr. Obi Miller Hemoglobin (Bld) [Mass/Vol] 13.4 g/dL Normal 12.0-16.0 [facility] [place] Comment on above: Performed By: #### C BC #### [facility] [address] [place] [address] Dr. Obi Miller IG # 0.02 10e3/ul Normal 0.00-0.03 [facility] Comment on above: Performed By: #### C BC #### [facility] [address] [place] [address] Dr. Obi Miller IG % 0.3 % Normal 0.0-0.5 [facility] Comment on above: Performed By: #### C BC #### [facility] [address] [place] [address] Dr. Obi Miller LYMPH # 2.7 103/ul Normal 1.2-3.8 [facility] Comment on above: Performed By: #### C BC #### [facility] [address] [place] [address] Dr. Obi Miller Lymphocytes/100 WBC (Bld) 34.7 % Normal 20.5-60.0 [facility] [place] Comment on above: Performed By: #### C BC #### [facility] [address] [place] [address] Dr. Obi Miller MANUAL DIFF REQ NO Normal [facility] Comment on above: Performed By: #### C BC #### [facility] [address] [place] [address] Dr. Obi Miller MCH (RBC) [Entitic mass] 28.4 pg Normal 26.7-34.0 [facility] [place] Comment on above: Performed By: #### C BC #### [facility] [address] [place] [address] Dr. Obi Miller MCHC (RBC) [Mass/Vol] 33.4 g/dL Normal 29.9-35.2 [facility] [place] Comment on above: Performed By: #### C BC #### [facility] [address] [place] [address] Dr. Obi Miller MCV (RBC) [Entitic vol] 85.0 fL Normal 81.0-99.0 [facility] [place] Comment on above: Performed By: #### C BC #### [facility] [address] [place] [address] Dr. Obi Miller MONO # 0.6 103/ul Normal 0.3-0.8 [facility] [place] Comment on above: Performed By: #### C BC #### [facility] [address] [place] [address] Dr. Obi Miller Monocytes/100 WBC (Bld) 7.2 % Normal 1.7-12.0 [facility] [place] Comment on above: Performed By: #### C BC #### [facility] [address] [place] [address] Dr. Obi Miller NEUT # 4.3 103/ul Normal 1.4-6.5 [facility] [place] Comment on above: Performed By: #### C BC #### [facility] [address] [place] [address] Dr. Obi Miller Neutrophils/100 WBC (Bld) 55.0 % Normal 43.0-75.0 [facility] [place] Comment on above: Performed By: #### C BC #### [facility] [address] [place] [address] Dr. Obi Miller Platelet mean volume (Bld) [Entitic vol] 9.7 fL Normal 9.5-13.5 [facility] [place] Comment on above: Performed By: #### C BC #### [facility] [address] [place] [address] Dr. Obi Miller PLT 302 103/ul Normal 150-450 [facility] Comment on above: Performed By: #### C BC #### [facility] [address] [place] [address] Dr. Obi Miller RBC 4.72 106/ul Normal 4.20-5.40 [facility] [place] Comment on above: Performed By: #### C BC #### [facility] [address] [place] [address] Dr. Obi Miller WBC 7.8 103/ul Normal 4.0-11.0 [facility] [place] Comment on above: Performed By: #### C BC #### [facility] [address] [place] [address] Dr. Obi Miller LIPID PROFILEon 10-17-2021 CHOL-HDL RATIO NORM SEE BELOW Normal [facility] [place] Comment on above: Result Comment: 3.3 - 4.4 LOW RISK 4.4 - 7.1 AVERAGE RISK 7.1 - 11.0 MODERATE RISK >11.0 HIGH RISK Performed By: #### C MP, LIPID, MG #### [facility] [address] [place] [address] Dr. Obi Miller Cholesterol [Mass/Vol] 197 mg/dL Normal <=200 [facility] Comment on above: Performed By: #### C MP, LIPID, MG #### [facility] [address] [place] [address] Dr. Obi Miller Cholesterol in HDL [Mass/Vol] 57 mg/dL Normal [facility] [place] Comment on above: Performed By: #### C MP, LIPID, MG #### [facility] [address] [place] [address] Dr. Obi Miller Cholesterol in LDL [Mass/Vol] 111.4 mg/dL Normal [facility] [place] Comment on above: Performed By: #### C MP, LIPID, MG #### [facility] [address] [address] [address] Obi Miller Cholesterol.total/ Cholesterol in HDL [Mass ratio] 3.5 {ratio} Normal [facility] [place] Comment on above: Performed By: #### C MP, LIPID, MG #### [facility] Laboratory [address] [address] [address] Obi Miller HDL NORMAL > or = 60 mg/dl - LO W CARDIOVASCULAR RISK <40 mg/dl - HIGH CARDIOVASCULAR RISK Normal [facility] [place] Comment on above: Performed By: #### C MP, LIPID, MG #### [facility] [address] [place] [address] Dr. Obi Miller LDL CALC NORMAL SEE BELOW Normal [facility] Comment on above: Result Comment: <100 mg/dl OPTIMAL 100 - 129 mg/dl NEAR OR ABOVE OPTIMAL 130 - 159 mg/dl BORDERLINE HIGH 160 - 189 mg/dl HIGH >190 mg/dl VERY HIGH Performed By: #### C MP, LIPID, MG #### [facility] [address] [place] [address] Dr. Obi Miller Triglyceride [Mass/Vol] 143 mg/dL Normal <=150 [facility] [place] Comment on above: Performed By: #### C MP, LIPID, MG #### [facility] [address] [place] [address] Dr. Obi Miller VLDL CALC 28.6 mg/dL Normal [facility] [place] Comment on above: Performed By: #### C MP, LIPID, MG #### [facility] [address] [place] [address] Dr. Obi Miller MAGNESIUMon 10-17-2021 Magnesium [Mass/Vol] 2.2 mg/dL Normal 1.6-2.3 [facility] [place] Comment on above: Performed By: #### C MP, LIPID, MG #### [facility] [address] [place] [address] Dr. Obi Miller PROF 14(COMP METB)on 022 Albumin [Mass/Vol] 3.3 g/dL Critically low 3.5-5.0 [facility] e [facility] Comment on above: Performed By: #### C MP, LIPID, MG #### [facility] [address] [place] [address] Dr. Obi Miller Albumin/Globulin [Mass ratio] 0.9 {ratio} Normal [facility] [place] Comment on above: Performed By: #### C MP, LIPID, MG #### [facility] [address] [address] [address] Obi Miller ALP [Catalytic activity/Vol] 70 U/L Normal 38-126 [facility] [place] Comment on above: Performed By: #### C MP, LIPID, MG #### [facility] [address] [place] [address] Dr. Obi Miller ALT [Catalytic activity/Vol] 27 U/L Normal 9-52 [facility] [place] Comment on above: Performed By: #### C MP, LIPID, MG #### [facility] [address] [place] [address] Dr. Obi Miller Anion gap [Moles/Vol] 12.8 mmol/L Normal [facility] [place] Comment on above: Performed By: #### C MP, LIPID, MG #### [facility] [address] [place] [address] Dr. Obi Miller AST [Catalytic activity/Vol] 13 U/L Critically low 14-36 [facility] [place] Comment on above: Performed By: #### C MP, LIPID, MG #### [facility] [address] [place] [address] Dr. Obi Miller Bilirubin [Mass/Vol] 0.4 mg/dL Normal 0.2-1.3 [facility] [place] Comment on above: Performed By: #### C MP, LIPID, MG #### [facility] [address] [place] [address] Dr. Obi Miller Calcium [Mass/Vol] 8.4 mg/dL Normal 8.4-10.2 [facility] Comment on above: Performed By: #### C MP, LIPID, MG #### [facility] [address] [address] [address] Obi Miller Chloride [Moles/Vol] 108 mmol/L Critically high 98-107 [facility] [place] Comment on above: Performed By: #### C MP, LIPID, MG #### [facility] [address] [place] [address] Dr. Obi Miller CO2 [Moles/Vol] 27.0 mmol/L Normal 22.0-30.0 [facility] Comment on above: Performed By: #### C MP, LIPID, MG #### [facility] [address] [place] [address] Dr. Obi Miller Creatinine [Mass/Vol] 0.71 mg/dL Normal 0.52-1.04 [facility] [place] Comment on above: Performed By: #### C MP, LIPID, MG #### [facility] [address] [place] [address] Dr. Obi Miller EGFR-AF KOSOVAN >60 Normal >=60 [facility] Comment on above: Performed By: #### C MP, LIPID, MG #### [facility] [address] [place] [address] Dr. Obi Miller EGFR-NON AF KOSOVAN >60 Normal >=60 [facility] [place] Comment on above: Performed By: #### C MP, LIPID, MG #### [facility] [address] [place] [address] Dr. Obi Miller Globulin (S) [Mass/Vol] 3.6 g/dL Normal [facility] [place] Comment on above: Performed By: #### C MP, LIPID, MG #### [facility] [address] [place] [address] Dr. Obi Miller Glucose [Mass/Vol] 109 mg/dL Critically high 74-106 [facility] Comment on above: Performed By: #### C MP, LIPID, MG #### [facility] [address] [place] [address] Dr. Obi Miller Potassium [Moles/Vol] 3.8 mmol/L Normal 3.4-5.0 [facility] [place] Comment on above: Performed By: #### C MP, LIPID, MG #### [facility] [address] [address] [address] Obi Miller Protein [Mass/Vol] 6.9 g/dL Normal 6.1-8.2 [facility] Comment on above: Performed By: #### C MP, LIPID, MG #### [facility] [address] [address] [address] Obi Miller Sodium [Moles/Vol] 144 mmol/L Normal 137-145 [facility] Comment on above: Performed By: #### C MP, LIPID, MG #### [facility] [address] [address] [address] Obi Miller Urea nitrogen [Mass/Vol] 8.0 mg/dL Normal 7.0-17.0 [facility] [place] Comment on above: Performed By: #### C MP, LIPID, MG #### [facility] [address] [place] [address] Dr. Obi Miller Urea nitrogen/Creatinin e [Mass ratio] 11.3 mg/mg Normal [facility] [place] Comment on above: Performed By: #### C MP, LIPID, MG #### [facility] [address] [address] [address] Obi Miller VITAMIN D 25 OHon 10-17-2021 VIT D 25-OH 24.1 ng/mL Normal [facility] [place] Comment on above: Performed By: #### V ITAD #### [facility] [address] [place] [address] Dr. Obi Miller VIT D RANGES SEE BELOW Normal [facility] Comment on above: Result Comment: <20 ng/mL Vit D deficient 20 - <30 ng/mL Vit D insufficient 30 - 100 ng/mL Vit D sufficient >100 ng/mL Potential Toxicity Performed By: #### V ITAD #### [facility] [address] [place] [address] Dr. Obi Miller Coding Summary.on 10-10-2018 Coding Summary. CODING DATE: 10/10/2018 [facility] STATUS: Home (Routine DC) PAYOR: Commercial Insurance APC DESCRIPTION 5693 Level 3 Drug Administration 5691 Level 1 Drug Administration 5023 Level 4 Type A ED Visits ADMIT DX: REASON FOR VISIT DX: R10.9 Unspecified abdominal pain FINAL DX: PRINCIPAL: N28.89 Other specified disorders of kidney and ureter SECONDARY: E86.0 Dehydration E87.6 Hypokalemia R10.9 Unspecified abdominal pain PYMT PROC APC STAT DESCRIPTION DOCTOR NAME DATE NOTE: The code number assigned matches the documented diagnosis and / or procedure in the patient's chart. However, the narrative phrase printed from the coding software may appear abbreviated, or result in slightly different terminology. Coded By: Laly East Date Saved: 10/10/2018 06:23 am [facility] Coding Summary. CODING DATE: 06/28/2018 FINAL [facility] STATUS: Home (Routine DC) PAYOR: Commercial Insurance APC DESCRIPTION 5024 Level 4 Type A ED Visits 5693 Level 3 Drug Administration 5691 Level 1 Drug Administration ADMIT DX: REASON FOR VISIT DX: R10.9 Unspecified abdominal pain FINAL DX: PRINCIPAL: N28.89 Other specified disorders of kidney and ureter SECONDARY: E86.0 Dehydration E87.6 Hypokalemia PYMT PROC APC STAT DESCRIPTION DOCTOR NAME DATE NOTE: The code number assigned matches the documented diagnosis and / or procedure in the patient's chart. However, the narrative phrase printed from the coding software may appear abbreviated, or result in slightly different terminology. Revised Coded By: Laly East Revised Date Saved: 06/28/2018 03:[address] [facility] Basic Metabolic Profon 07-18 (cont.) Normal [facility] Comment on above: Result Comment: Aver age GFR for 40-49 years old: 99 mL/min/1.73sq mChronic Kidney Disease: <60 mL/min/1.73sq mKidney failure: <15 mL/min/1.73sq meGFR calculated using average adult body mass. Additional eGFR calculator available at:http://www.[employer]to[employer].com/multiple_crcl_2012.htm Performed By: #### C NERIS, SANDEEP, STAN ####[address] [place] [address] Anion gap 3 molar conc 12 mmol/L Normal - [facility] Comment on above: Performed By: #### C DP, TROPI, BMP ####[address] [place] [address] BUN/CRE Ratio 15 Normal 9-20 [facility] Comment on above: Performed By: #### C DP, TROPI, BMP ####[address] [place] [address] Calcium mass conc 8.8 mg/dL Normal 8.6-10.4 [facility] Comment on above: Performed By: #### C DP, TROPI, BMP ####[address] [place] [address] Chloride molar conc 105 mmol/L Normal 98-107 [facility] Comment on above: Performed By: #### C DP, TROPI, BMP ####[address] [place] [address] CO2 molar conc 22 mmol/L Normal 20-31 [facility] Comment on above: Performed By: #### C DP, TROPI, BMP ####[address] [place] [address] Creatinine mass conc 0.60 mg/dL Normal 0.50-0.90 [facility] Comment on above: Performed By: #### C DP, TROPI, BMP ####[address] [place] [address] GFR, Amer >60 Normal >60 [facility] Comment on above: Performed By: #### C DP, TROPI, BMP ####[address] [place] [address] GFR,non Amer >60 Normal >60 [facility] Comment on above: Performed By: #### C DP, TROPI, BMP ####[address] [place] [address] Glucose mass conc 90 mg/dL Normal 70-99 [facility] Comment on above: Performed By: #### C DP, TROPI, BMP ####[address] [place] [address] Potassium molar conc 3.8 mmol/L Normal 3.7-5.3 [facility] Comment on above: Performed By: #### C DP, TROPI, BMP ####[address] [place] [address] Sodium molar conc 139 mmol/L Normal 135-144 [facility] Comment on above: Performed By: #### C DP, TROPI, BMP ####[address] [place] [address] Staging: Normal [facility] Comment on above: Result Comment: Stag e 1: Some kidney damage normal GFRStage 2: Mild kidney damage GFR 60-89Stage 3: Moderate kidney damage GFR 30-59Stage 4: Severe kidney damage GFR 15-29Stage 5: Severe kidney damage GFR <15ESRD - chronic treatment by dialysis or transplant Performed By: #### C DP, TROPI, BMP ####[address] [place] [address] Urea nitrogen mass conc 9 mg/dL Normal 6-20 [facility] Comment on above: Performed By: #### C DP, TROPI, BMP ####[address] [place] [address] CBC with Diffon 07-18-2018 Abs. Basophil 0.06 k/uL Normal 0.00-0.20 [facility] Comment on above: Performed By: #### C DP, TROPI, BMP ####[address] [place] [address] Abs.Imm.Granulocyt e <0.03 Normal 0.00-0.30 [facility] Comment on above: Performed By: #### C DP, TROPI, BMP ####[address] [place] [address] Abs.Neutrophil (Seg) 4.39 k/uL Normal 1.50-8.10 [facility] Comment on above: Performed By: #### C DP, TROPI, BMP ####[address] [place] [address] Basophils/100 WBC Auto (Bld) 1 % Normal 0-2 [facility] Comment on above: Performed By: #### C DP, TROPI, BMP ####[address] [place] [address] Eosinophils Auto #/vol (Bld) 0.13 10*3/uL Normal 0.00-0.44 [facility] Comment on above: Performed By: #### C DP, TROPI, BMP ####[address] [place] [address] Eosinophils/100 WBC Auto (Bld) 2 % Normal 1-4 [facility] Comment on above: Performed By: #### C DP, TROPI, BMP ####[address] [place] [address] Erythrocyte distribution width Auto Ratio (RBC) 12.4 % Normal 11.8-14.4 [facility] Comment on above: Performed By: #### C DP, TROPI, BMP ####[address] [place] [address] Hematocrit Auto Volume Fraction (Bld) 40.5 % Normal 36.3-47.1 [facility] Comment on above: Performed By: #### C DP, TROPI, BMP ####[address] [place] [address] Hemoglobin mass conc (Bld) 14.1 g/dL Normal 11.9-15.1 [facility] Comment on above: Performed By: #### C DP, TROPI, BMP ####[address] [place] [address] Immature granulocytes #/vol (Bld) 0 % Normal 0 [facility] Comment on above: Performed By: #### C DP, TROPI, BMP ####[address] [place] [address] Lymphocytes Auto #/vol (Bld) 2.52 10*3/uL Normal 1.10-3.70 [facility] Comment on above: Performed By: #### C DP, TROPI, BMP ####[address] [place] [address] Lymphocytes/100 WBC Auto (Bld) 33 % Normal 24-43 [facility] Comment on above: Performed By: #### C DP, TROPI, BMP ####[address] [place] [address] MCH Auto Entitic mass (RBC) 30.9 pg Normal 25.2-33.5 [facility] Comment on above: Performed By: #### C DP, TROPI, BMP ####[address] [place] [address] MCHC Auto mass conc (RBC) 34.8 g/dL Normal 28.4-34.8 [facility] Comment on above: Performed By: #### C DP, TROPI, BMP ####[address] [place] [address] MCV Auto Entitic volume (RBC) 88.6 fL Normal 82.6-102.9 [facility] Comment on above: Performed By: #### C DP, TROPI, BMP ####[address] [place] [address] Monocytes Auto #/vol (Bld) 0.54 10*3/uL Normal 0.10-1.20 [facility] Comment on above: Performed By: #### C DP, TROPI, BMP ####[address] [place] [address] Monocytes/100 WBC Auto (Bld) 7 % Normal 3-12 [facility] Comment on above: Performed By: #### C NERIS TROPI, BMP ####[address] [place] [address] Neutrophil (Seg) 57 % Normal 36-65 [facility] Comment on above: Performed By: #### C DP, TROPI, BMP ####[address] [place] [address] NRBC Automated 0.0 per 100 WBC Normal 0.0 [facility] Comment on above: Performed By: #### C NERIS TROPI, BMP ####[address] [place] [address] Platelet mean volume Auto Entitic volume (Bld) 9.3 fL Normal 8.1-13.5 [facility] Comment on above: Performed By: #### C NERIS TROPI, BMP ####[address] [place] [address] Platelets Auto #/vol (Bld) 245 10*3/uL Normal 138-453 [facility] Comment on above: Performed By: #### C NERIS TROPI, BMP ####[address] [place] [address] RBC Auto #/vol (Bld) 4.57 10*6/uL Normal 3.95-5.11 [facility] Comment on above: Performed By: #### C DP, TROPI, BMP ####[address] [place] [address] WBC Auto #/vol (Bld) 7.7 10*3/uL Normal 3.5-11.3 [facility] Comment on above: Performed By: #### C DP, TROPI, BMP ####[address] [place] [address] Auto Diff Performed NOT REPORTED Normal [facility] Comment on above: Performed By: #### C DP, TROPI, BMP ####[address] , [place] [id number] Platelets Auto #/vol (Bld) NOT REPORTED Normal [facility] Comment on above: Performed By: #### C DP, TROPI, BMP ####[address] [place], [place] [id number] RBC morphology finding Nom (Bld) NOT REPORTED Normal [facility] Comment on above: Performed By: #### C DP, TROPI, BMP ####[address] , [place] [id number] WBC Morphology NOT REPORTED Normal [facility] Comment on above: Performed By: #### C DP, TROPI, BMP ####[address] [place] [address] CT CHEST PULMONARY EMBOLISM W CONTRASTon 07-18-2018 CT CHEST PULMONARY EMBOLISM W CONTRAST EXAMINATION:CTA OF THE CHEST 07/18/2018 6:10 pmTECHNIQUE:CTA of the chest was performed after the administration of intravenouscontrast. Multiplanar reformatted images are provided for review. MIPimages are provided for review. Dose modulation, iterative reconstruction,and/or weight based adjustment of the mA/kV was utilized to reduce theradiation dose to as low as reasonably achievable.COMPARISON: Chest radiograph today.HISTORY:ORDERING SYSTEM PROVIDED HISTORY: chest pain , renal cell cancer, high d dimerFINDINGS:Pulmonar y Arteries: Pulmonary arteries are adequately opacified forevaluation. No evidence of intraluminal filling defect to suggest pulmonaryembolism. Main pulmonary artery is normal in caliber.Mediastinum: No evidence of mediastinal lymphadenopathy. The heart andpericardium demonstrate no acute abnormality. There is no acute abnormalityof the thoracic aorta.Lungs/pleura: The lungs are without acute process. No evidence formetastatic disease. No focal consolidation or pulmonary edema. No evidenceof pleural effusion or pneumothorax.Upper Abdomen: Limited images of the upper abdomen are unremarkable.Soft Tissues/Bones: No acute bone or soft tissue abnormality. No lytic orblastic lesion identified.IMPRESSION: No evidence of pulmonary embolism or acute pulmonary abnormality.Interprete d by:JUAN DAVID Godoyigned by:Roland Hernandez MD07/18/18inal result Normal [facility] D-Dimer Teston 07-18-2018 D-Dimer Test 1.11 mg/L FEU High 0.19-0.50 [facility] Comment on above: Result Comment: Elev ated levels of D dimer can be seen in any state of coagulation activation including DVT, PE, arterial thrombosis, DIC, inflamatory disease, trauma, malignancy, sepsis, infection, hematoma, liver disease, post surgical state, , atherosclerosis, old age.When combined with a low clinical probability, a D dimer value of <0.50 mg/L is considered negative for DVT and PE (negative predictive value of 98%). Performed By: #### D NATALIA ####[address] [place] [address] HCG, ,Urineon 07-18 HCG.beta subunit ( test) Ql (U) Negative Normal NEG [facility] Comment on above: Result Comment: Spec imens with hCG levels near the threshold of the test (25 mIU/mL) may give a negative or indeterminate result. In such cases, another test should be performed with a new specimen in 48-72 hours. If early is suspected clinically in this setting, correlation with quantitative serum b-hCG level is suggested.[facility] has confirmed the use of plasma for this test. This has not been cleared or approved by the U.S. Food and Drug Administration. The FDA has determined that such clearance is not necessary. Performed By: #### U HCG ####[address] [place] [address] Lipaseon 07-18-2018 Lipase enzyme act/vol 30 U/L Normal 13-60 [facility] Comment on above: Performed By: #### L IP, LIVP ####[address] [place] [address] Liver Profileon 07-18-2018 Albumin mass conc 3.8 g/dL Normal 3.5-5.2 [facility] Comment on above: Performed By: #### L IP, LIVP ####[address] [place] [address] Albumin/Globulin mass ratio 1.4 {ratio} Normal 1.0-2.5 [facility] Comment on above: Performed By: #### L IP, LIVP ####[address] [place] [address] Alkaline Phos 58 U/L Normal 35-104 [facility] Comment on above: Performed By: #### L IP, LIVP ####[address] [place] [address] ALT enzyme act/vol 31 U/L Normal 5-33 [facility] Comment on above: Performed By: #### L IP, LIVP ####[address] [place] [address] AST enzyme act/vol 22 U/L Normal <32 [facility] Comment on above: Performed By: #### L IP, LIVP ####[address] [place] [address] Bilirubin Ql (U) 0.41 mg/dL Normal 0.3-1.2 [facility] Comment on above: Performed By: #### L IP, LIVP ####[address] [place] [address] Bilirubin, Indirect CANNOT BE CALCULATED Normal 0.00-1.00 [facility] Comment on above: Performed By: #### L IP, LIVP ####[address] [place] [address] Bilirubin.direct mass conc mg/dL Normal <0.31 [facility] Comment on above: Performed By: #### L IP, LIVP ####[address] [place] [address] Protein mass conc 6.6 g/dL Normal 6.4-8.3 [facility] Comment on above: Performed By: #### L IP, LIVP ####[address] [place] [address] Globulin Calculated mass conc (S) NOT REPORTED Normal 1.5-3.8 [facility] Comment on above: Performed By: #### L IP, LIVP ####[address] [place] [address] Troponinon 07-18-2018 Troponin T.cardiac mass conc ug/L Normal <0.03 [facility] Comment on above: Result Comment: Trop onin T results cannot be compared to Troponin-I results. Performed By: #### C DP, TROPI, BMP ####[address] [place] [address] Troponin I.cardiac mass conc Normal [facility] Comment on above: Result Comment: Refe rence Range: <0.03 Within reference range. 0.03-0.09 Possible myocardial damage.Repeat at appropriate intervals to rule out chronic elevation. >= 0.10 Indicative of myocardial damage.Patients with high levels of Biotin oral intake (i.e >5mg/day) may have falsely decreased Troponin T levels. Samples collected within 8 hours of biotin intake may require additional information for diagnosis. Performed By: #### C DP, TROPI, BMP ####[address] [place], [place] [address] XR CHEST (2 VW)on 07-18-2018 Protein mass conc EXAMINATION:TWO VIEW S OF THE CHEST07/18/2018 4:03 pmCOMPARISON:None.HIST ORY:ORDERING SYSTEM PROVIDED HISTORY: chest painTECHNOLOGIST PROVIDED HISTORY:chest painFINDINGS:Cardiac and mediastinal shadows are normal. No infiltrates. No effusions.No pneumothorax. No free air below the diaphragm.IMPRESSION: Normal exam.Interpreted by:JUAN DAVID Venegasigned by:Asha Reese MD07/18/18inal result Normal [facility] Coding Summary.on 07-01-2018 Coding Summary. CODING DATE: 07/01/2018 FINAL [facility] STATUS: Home (Routine DC) PAYOR: Commercial Insurance ADMIT DX: REASON FOR VISIT DX: N39.0 Urinary tract infection, site not specified FINAL DX: PRINCIPAL: N39.0 Urinary tract infection, site not specified SECONDARY: PROCEDURES DOCTOR NAME DATE NOTE: The code number assigned matches the documented diagnosis and / or procedure in the patient's chart. However, the narrative phrase printed from the coding software may appear abbreviated, or result in slightly different terminology. Coded By: Tamia Lai CphT Date Saved: 07/01/2018 10:51 am [facility] C Urineon 06-28-2018 Bacteria identified Cx Nom (U) Microbiology PROCEDURE: Urine Culture [R1] SOURCE: U CleanCatch BODY SITE: COLLECTED DATE/TIME: 06/26/2018 11:15 EST RECEIVED DATE/TIME: 06/26/2018 12:13 EST START DATE/TIME: 06/26/2018 12:13 EST FREE TEXT SOURCE: ALEKS LE, Elliott MANDUJANO MD, Elliott Kay FINAL REPORTS Final Report [] Verified Date/Time: 06/28/2018 07:27 EST 3,000 cfu/ml Mixed skin contaminants Performing Locations R1: This test was performed at: [facility], [address] [place] [address], [id number] , [facility] Comment on above: Performed By: #### 2 [id number], [id number], [id number], [id number] #### [facility] [address] [place] [id number] Coding Summary.on 06-26-2018 Coding Summary. CODING DATE: 06/26/2018 FINAL [facility] STATUS: Home (Routine DC) PAYOR: Commercial Insurance APC DESCRIPTION 5571 Level 1 Imaging with Contrast ADMIT DX: REASON FOR VISIT DX: R10.9 Unspecified abdominal pain FINAL DX: PRINCIPAL: R10.9 Unspecified abdominal pain SECONDARY: PYMT PROC APC STAT DESCRIPTION DOCTOR NAME DATE NOTE: The code number assigned matches the documented diagnosis and / or procedure in the patient's chart. However, the narrative phrase printed from the coding software may appear abbreviated, or result in slightly different terminology. Coded By: Tamia Lai CphT Date Saved: 06/26/2018 08:[address] [facility] ED Note-Physicianon 06-26-20 ED Note-Physician Basic Information Time Seen: Emely DUMAS Michael 06/25/2018 15:43 Chief Complaint Pt was sent for a CT scan by her PCP. A mass was found in her kidney so her PCP sent her to the ED for evaluation. Pt states pain is under control at this time. History of Present Illness 43-year-old female comes to the ED for evaluation of right flank pain. Patient states she developed some UTI symptoms last week. Saw her PCP was placed on Bactrim with improvement. Today she had worsening right-sided flank pain and had outpatient computed tomography scan performed. Patient was then sent to the ED for evaluation. She complains of intermittent right-sided flank pain that has improved and she took ibuprofen. Her urinary symptoms have essentially resolved since she took the Bactrim. No fever, chills, nausea, vomiting. No abdominal pains. No weight loss or weight gain. Nonsmoker. No other prior treatments. This somewhat history of kidney stones. Review of Systems Unless otherwise stated in this report or unable to obtain because of patient's clinical or mental status as evidenced by the medical record, the patient's positive and negative responses for review of systems for constitutional, eyes, ENT, cardiovascular, respiratory, gastrointestinal, neurological, genitourinary, musculoskeletal, and integument systems and related systems to the presenting problem are either as stated in the HPI or were not pertinent or were negative for the symptoms and/or complaints related to the presenting medical problem. Medical and Surgical History: Reviewed and noted Social history: Lives at home Tobacco: Denies Physical Exam Vitals & Measurements T: 36.4 ?C (Oral) HR: 118(Peripheral) RR: 16 BP: 145/88 SpO2: 98% HT: 160 cm WT: 81 kg BMI: 31.64 Nurses notes and vital signs reviewed and patient is not hypoxic. General: The patient appears well and in no significant distress Patient is resting comfortably on the exam bed. Skin: Warm, dry, no pallor noted. Head: Atraumatic. Neck: No JVD. Eye: Normal conjunctiva. Ears, Nose, Mouth, and Throat: Moist mucous membranes Cardiovascular: Strong distal pulses. Tachycardic Chest wall: Respiratory: Respirations are nonlabored. Back: Right CVA tenderness. Musculoskeletal: Normal ROM with no gross deformity. Gastrointestinal: Soft and nontender. Urological: Neurological: Awake and alert. No focal deficits. Follows commands. GCS 15. Psychiatric: Cooperative. Medical Decision Making Outpatient computed tomography scan reviewed. The patient has a 3.5 cm solid right renal mass concerning for neoplastic process. This was discussed with the patient. Based on laboratory studies have been obtained and reviewed. Mild dehydration. Mild hypokalemia and this was replaced orally. Case discussed with urology who will follow-up the patient for further evaluation. This has been discussed the patient at length. She reports significant sensitivity to pain medications, and after discussion we will start her on Ultram and she will continue with Motrin and Tylenol. She is given Zofran.Patient was encouraged to return to the ED if symptoms worsen or change. Assessment/Plan Flank pain Right renal mass Orders: ondansetron, 4 mg = 1 tab(s), Oral, TID, # 20 tab(s), Refills(s) 0 potassium chloride, 20 mEq = 2 cap(s), Cap-ER, Oral, Once, Stop date 06/25/18 16:56:00 EST, STAT, Start date 06/25/18 16:56:00 EST Sodium Chloride 0.9% intravenous solution 1,000 mL, 1,000 mL, IV, Bolus, STAT, Start date 06/25/18 15:57:00 EST, Total volume (mL): 1,000 tramadol, 50 mg = 1 tab(s), Oral, q6hr, Take one tab by mouth every six hours as needed for pain, X 3 day(s), # 20 tab(s), Refills(s) 0 Automated Diff Basic Metabolic Panel CBC w/ Auto Diff eGFR UA With Cult Reflex Disposition Plan Patient Discharge Condition Disposition: Discharged home Condition: Improved and stable Counseled: Patient and/or family were counseled to workup, results, treatment plan and follow-up recommendations Discharge Prescription List Prescriptions Ultram 50 mg Tab, 50 mg= 1 tab(s), Oral, q6hr Zofran ODT 4 mg Tab-Dis, 4 mg= 1 tab(s), Oral, TID Follow-up With When Contact Information Elliott MANDUJANO In 3 days 06/28/[address] [place] [id number]- [facility] (1) Additional Instructions: Patient Education Kidney Cancer Flank Pain Attestation Patient seen and evaluated by the physician personal care assistant. Attending physician was present in the emergency department and supervised care. This report was transcribed using voice recognition software. Every effort was made to ensure accuracy, however, inadvertently computerized furniture painter mistakes may be present. Problem List/Past Medical History Ongoing No qualifying data Historical No qualifying data Medications Inpatient Sodium Chloride 0.9% IV Rachael 1000 mL 1,000 mL, 1000 mL, IV Home No active home medications Allergies No Known Medication Allergies Lab Results WBC: 6.4 E9/L (06/25/18 16:19:00 EST) RBC: 4.8 E12/L (06/25/18 16:19:00 EST) Hgb: 14.4 gm/dL (06/25/18 16:19:00 EST) Hct: 41.9 % (06/25/18 16:19:00 EST) MCV: 86.7 fL (06/25/18 16:19:00 EST) MCH: 29.8 pg (06/25/18 16:19:00 EST) MCHC: 34.3 gm/dL (06/25/18 16:19:00 EST) RDW: 13 % (06/25/18 16:19:00 EST) Platelet: 229 E9/L (06/25/18 16:19:00 EST) MPV: 7.9 fL (06/25/18 16:19:00 EST) Neutro Auto: 73.7 % (06/25/18 16:19:00 EST) Lymph Auto: 8.4 % Low (06/25/18 16:19:00 EST) Benson Auto: 10.2 % (06/25/18 16:19:00 EST) Eos Auto: 7.6 % (06/25/18 16:19:00 EST) Basophil Auto: 0.1 % (06/25/18 16:19:00 EST) Neutro Absolute: 4.7 E9/L (06/25/18 16:19:00 EST) Lymph Absolute: 0.5 E9/L Low (06/25/18 16:19:00 EST) Benson Absolute: 0.7 E9/L (06/25/18 16:19:00 EST) Eos Absolute: 0.5 E9/L (06/25/18 16:19:00 EST) Basophil Absolute: 0 E9/L (06/25/18 16:19:00 EST) Glucose Lvl: 120 mg/dL (06/25/18 16:19:00 EST) BUN: 9 mg/dL (06/25/18 16:19:00 EST) Creatinine: 0.7 mg/dL (06/25/18 16:19:00 EST) eGFR: >60 (06/25/18 16:19:00 EST) eGFR AA: >60 (06/25/18 16:19:00 EST) BUN/Creat Ratio: 13 (06/25/18 16:19:00 EST) Sodium Lvl: 132 mmol/L Low (06/25/18 16:19:00 EST) Potassium Lvl: 3.2 mmol/L Low (06/25/18 16:19:00 EST) Chloride: 102 mmol/L (06/25/18 16:19:00 EST) CO2: 20 mmol/L Low (06/25/18 16:19:00 EST) AGAP: 13 mEq/L (06/25/18 16:19:00 EST) Calcium Lvl: 8.4 mg/dL Low (06/25/18 16:19:00 EST) UA Spec Desc: Clean Catch (06/25/18 16:15:00 EST) UA Color: Yellow2 (06/25/18 16:15:00 EST) UA Clarity: Clear2 (06/25/18 16:15:00 EST) UA Spec Grav: <=1.005 (06/25/18 16:15:00 EST) UA pH: 6.0 (06/25/18 16:15:00 EST) UA Protein: NEGATIVE1 (06/25/18 16:15:00 EST) UA Glucose: NEGATIVE1 (06/25/18 16:15:00 EST) UA Ketones: NEGATIVE1 (06/25/18 16:15:00 EST) UA Bili: NEGATIVE1 (06/25/18 16:15:00 EST) UA Blood: Trace2 Abnormal (06/25/18 16:15:00 EST) UA Nitrite: NEGATIVE1 (06/25/18 16:15:00 EST) UA Urobilinogen: 0.2 (06/25/18 16:15:00 EST) UA Leuk Est: NEGATIVE1 (06/25/18 16:15:00 EST) UA RBC: 4-20 (06/25/18 16:15:00 EST) UA Squam Epithelial: 0-2 (06/25/18 16:15:00 EST) UA WBC: 0-5 (06/25/18 16:15:00 EST) Diagnostic Results No qualifying data available. Normal [facility] Comment on above: Result Comment: Elec tronically Signed By: Michael Han PA-C\.br\Date and Time Signed: 06/25/18 16:58 EST\.br\Electronically Co-Signed By: Mack Spencer M.D.\.br\Date and Time Co-Signed: 06/26/18 13:16 EST Auto Diffon 06-25-2018 Basophils #/vol (Bld) 0.1 % Normal 0.0-2.0 [facility] Comment on above: Order Comment: Order Added by Discern Expert. Performed By: #### 2 [id number], [id number], [id number], [id number] #### [facility] [address] [place] [address] Basophils/Leukocyt es Auto Pure number fraction (Bld) 0.0 E9/L Normal 0.0-0.2 [facility] Comment on above: Order Comment: Order Added by Discern Expert. Performed By: #### 2 [id number], 5050515, 3941034, [id number] #### [facility] [address] [place] [address] Eosinophils/100 WBC (Bld) 7.6 % Normal 0.0-8.0 [facility] Comment on above: Order Comment: Order Added by Discern Expert. Performed By: #### 2 [id number], [id number], 5112001, [id number] #### [facility] [address] [place] [address] Eosinophils/Leukoc ytes Auto Pure number fraction (Bld) 0.5 E9/L Normal 0.0-0.5 [facility] Comment on above: Order Comment: Order Added by Discern Expert. Performed By: #### 2 [id number], 5359222, 3407931, [id number] #### [facility] [address] [place] [address] Lymphocytes/100 WBC (Bld) 8.4 % Low 14.0-50.0 [facility] Comment on above: Order Comment: Order Added by Discern Expert. Performed By: #### 2 [id number], 3529885, 3079381, [id number] #### [facility] [address] [place] [address] Lymphocytes/Leukoc ytes Auto Pure number fraction (Bld) 0.5 E9/L Low 1.0-4.0 [facility] Comment on above: Order Comment: Order Added by Rohan Expert. Performed By: #### 2 735607, 1301842, 4523556, [id number] #### [facility] [address] [place] [address] Monocytes/100 WBC (Bld) 10.2 % Normal 4.0-14.0 [facility] Comment on above: Order Comment: Order Added by Rohan Expert. Performed By: #### 2 402956, 7118177, 7595439, [id number] #### [facility] [address] [place] [address] Monocytes/Leukocyt es Auto Pure number fraction (Bld) 0.7 E9/L Normal 0.2-1.0 [facility] Comment on above: Order Comment: Order Added by Discern Expert. Performed By: #### 2 238393, 7761998, 3567728, [id number] #### [facility] [address] [place] [address] Neutrophils/100 WBC (Bld) 73.7 % Normal 36.0-75.0 [facility] Comment on above: Order Comment: Order Added by Rohan Expert. Performed By: #### 2 019155, 7267534, 5762429, [id number] #### [facility] [address] [place] [address] Neutrophils/Leukoc ytes Auto Pure number fraction (Bld) 4.7 E9/L Normal 2.0-7.5 [facility] Comment on above: Order Comment: Order Added by Discern Expert. Performed By: #### 2 153876, 9634543, 6451490, [id number] #### [facility] [address] [place] [address] BMPon 06-25-2018 Creatinine mass conc 0.7 mg/dL Normal 0.5-1.3 [facility] Comment on above: Performed By: #### 2 518004, 6906781, 3299107, [id number] #### [facility] [address] [place] [address] Urea nitrogen mass conc 9 mg/dL Normal 5-21 [facility] Comment on above: Performed By: #### 2 073108, 7283576, 2275869, [id number] #### [facility] [address] [place] [address] Urea nitrogen/Creatinin e mass ratio 13 No Units Normal 10-20 [facility] Comment on above: Performed By: #### 2 193631, 6850821, 8666971, 54645151 #### [facility] [address] [place] [address] Anion gap molar conc 13 mmol/L Normal 6-16 [facility] Comment on above: Performed By: #### 2 646461, 3560312, 5253523, [id number] #### [facility] [address] [place] [address] Calcium mass conc 8.4 mg/dL Low 8.9-11.1 [facility] Comment on above: Performed By: #### 2 196662, 8465084, 3649976, [id number] #### [facility] [address] [place] [address] Chloride molar conc 102 mmol/L Normal 101-111 [facility] Comment on above: Performed By: #### 2 668624, 5274957, 1405813, 78240029 #### [facility] [address] [place] [address] CO2 molar conc 20 mmol/L Low 21-31 [facility] Comment on above: Performed By: #### 2 913312, 2823349, 4350345, 87210957 #### [facility] [address] [place] [address] Glucose mass conc 120 mg/dL Normal 55-199 [facility] Comment on above: Result Comment: If t his glucose result represents a fasting glucose, interpretation should refer to the following reference range: 55-99 mg/dL Performed By: #### 2 213332, 1497879, 2229416, 89935047 #### [facility] [address] [place] [address] Potassium molar conc 3.2 mmol/L Low 3.5-5.3 [facility] Comment on above: Performed By: #### 2 700491, 3424209, 7003164, 06885834 #### [facility] [address] [place] [address] Sodium molar conc 132 mmol/L Low 135-145 [facility] Comment on above: Performed By: #### 2 136238, 4221944, 9468163, 81449545 #### [facility] [address] [place] [address] CBC w/ Auto Diffon 8 Erythrocyte distribution width Ratio (RBC) 13.0 % Normal 10.9-14.2 [facility] Comment on above: Performed By: #### 2 730575, 9070258, 1431073, 84087775 #### [facility] [address] [place] [address] Hematocrit Volume Fraction (Bld) 41.9 % Normal 34.0-46.0 [facility] Comment on above: Performed By: #### 2 320551, 6488825, 8354681, 85251472 #### [facility] [address] [place] [address] Hemoglobin mass conc (Bld) 14.4 g/dL Normal 12.0-16.0 [facility] Comment on above: Performed By: #### 2 680612, 5097047, 7624280, 07943533 #### [facility] [address] [place] [address] MCH Entitic mass (RBC) 29.8 pg Normal 27.0-34.0 [facility] Comment on above: Performed By: #### 2 625101, 2202099, 8736045, [id number] #### [facility] [address] [place] [address] MCHC mass conc (RBC) 34.3 g/dL Normal 31.4-39.3 [facility] Comment on above: Performed By: #### 2 464182, 4450558, 0904427, [id number] #### [facility] [address] [place] [address] MCV Entitic volume (RBC) 86.7 fL Normal 80.0-100.0 [facility] Comment on above: Performed By: #### 2 315097, 0315440, 8400591, 25554644 #### [facility] [address] [place] [address] Platelet mean volume Entitic volume (Bld) 7.9 fL Normal 6.4-10.8 [facility] Comment on above: Performed By: #### 2 493049, 9585934, 9038282, 76751614 #### [facility] [address] [place] [address] Platelets #/vol (Bld) 229.0 E9/L Normal 150.0-500.0 [facility] Comment on above: Performed By: #### 2 742380, 0163333, 9124640, 16981894 #### [facility] [address] [place] [address] RBC #/vol (Bld) 4.8 E12/L Normal 4.3-5.9 [facility] Comment on above: Performed By: #### 2 512364, 6795839, 6615720, 13232581 #### [facility] [address] [place] [address] WBC corrected for nucl RBC Auto #/vol (Bld) 6.4 E9/L Normal 4.0-11.0 [facility] Comment on above: Performed By: #### 2 906484, 7509864, 9053608, 32448816 #### [facility] [address] [place] [address] ED Clinical Summaryon 2017 ED Clinical Summary [address] [address] ED Clinical Summary Person Information Name: JENNIFER ALEJANDRO Maria [place] Age: 43 Years : 1975 12:00 AM Sex: Female Language: Telugu PCP: Elvira Whipple MD Marital Status: Visit Id: Visit Reason: Flank pain; rt. flank pain Speciality: Acuity: 3 Enc Type: Emergency Med Service: Emergency Arrival: 06/25/2018 3:38 PM Discharge: 06/25/2018 6:07 PM LOS: 000 02:29 Checkin: 06/25/2018 3:38 PM Checkout: 06/25/2018 6:07 PM Dispo Type: Home (Routine DC) EVENTS: Event Name Event Status Request Date/Time Start Date/Time Complete Date/Time Arrive Complete 06/25/2018 3:38 PM 06/25/2018 3:38 PM 06/25/2018 3:38 PM Document Home Meds Complete 06/25/2018 3:38 PM 06/25/2018 4:20 PM 06/25/2018 4:20 PM Triage Complete 06/25/2018 3:38 PM 06/25/2018 3:56 PM 06/25/2018 3:56 PM Bed Assign Complete 06/25/2018 3:42 PM 06/25/2018 3:42 PM 06/25/2018 3:[address] Exam Complete 06/25/2018 3:42 PM 06/25/2018 3:43 PM 06/25/2018 3:43 PM RN Exam Complete 06/25/2018 3:42 PM 06/25/2018 4:24 PM 06/25/2018 4:24 PM Registration Complete 06/25/2018 3:43 PM 06/25/2018 3:51 PM 06/25/2018 3:51 PM Reg Complete Request 06/25/2018 3:51 PM Reg Bed Request Complete 06/25/2018 3:51 PM 06/25/2018 3:51 PM 06/25/2018 3:51 PM Meds Admin Complete 06/25/2018 3:58 PM 06/25/2018 4:20 PM 06/25/2018 4:20 PM Pending Labs Complete 06/25/2018 3:58 PM 06/25/2018 4:37 PM Lab Complete 06/25/2018 3:58 PM 06/25/2018 4:37 PM Urine Collect Complete 06/25/2018 3:58 PM 06/25/2018 4:[address] Exam Complete 06/25/2018 4:16 PM 06/25/2018 4:16 PM 06/25/2018 4:16 PM Registration Complete 06/25/2018 4:16 PM 06/25/2018 4:48 PM 06/25/2018 4:48 PM Pending Labs Complete 06/25/2018 4:24 PM 06/25/2018 4:24 PM 06/25/2018 4:37 PM Lab Complete 06/25/2018 4:24 PM 06/25/2018 4:24 PM 06/25/2018 4:37 PM Pending Labs Complete 06/25/2018 4:27 PM 06/25/2018 4:27 PM 06/25/2018 4:27 PM Lab Complete 06/25/2018 4:27 PM 06/25/2018 4:27 PM 06/25/2018 4:27 PM Discharge Complete 06/25/2018 4:55 PM 06/25/2018 6:07 PM 06/25/2018 6:07 PM Meds Admin Complete 06/25/2018 4:57 PM 06/25/2018 5:29 PM Transfer Complete 06/25/2018 6:07 PM 06/25/2018 6:07 PM 06/25/2018 6:07 PM ADDRESS: [address] [place] [address] [place] [id number] PHYS DOC NOTES: MEDICAL INFORMATION: Prescriptions Given: Prescription Display ondansetron (Zofran ODT 4 mg Tab-Dis) 4 mg = 1 tab(s), Oral, TID, # 20 tab(s), Refills(s) 0 tramadol (Ultram 50 mg Tab) 50 mg = 1 tab(s), Oral, q6hr, Take one tab by mouth every six hours as needed for pain, X 3 day(s), # 20 tab(s), Refills(s) 0 PATIENT EDUCATION INFORMATION: Instructions: Kidney Cancer; Flank Pain Follow up: With: Address: When: [facility] [address], [place] [address] [employer] (1) In 3 days 06/28/2018 DIAGNOSIS: Flank pain; Right renal mass Normal [facility] ED Note-Nursingon 06-25-2018 ED Note-Nursing Patient: MOIZ ALEJANDRO Age: 43 years Sex: Female : 1975 Associated Diagnoses: None Author: Ricardo HENAO, Kelli Jose Progress Note 1800: IV discontinued, cathalon intact,site clear, pressure dressing applied. Normal [facility] ED Note-Nursing Patient: MOIZ ALEJANDRO Age: 43 years Sex: Female : 1975 Associated Diagnoses: None Author: Kelli Silva RN Progress Note Michael BUCIO in to speak with patient regarding plan of care. Normal [facility] ED Patient Education Noteon 06-25-2018 ED Patient Education Note Family Medicine Flank Pain Flank pain refers to pain that is located on the side of the body between the upper abdomen and the back. The pain may occur over a short period of time (acute) or may be long-term or reoccurring (chronic). It may be mild or severe. Flank pain can be caused by many things. CAUSES Some of the more common causes of flank pain include: ? Muscle strains. ? ? Muscle spasms. ? ? A disease of your spine (vertebral disk disease). ? ? A lung infection (pneumonia). ? ? Fluid around your lungs (pulmonary edema). ? ? A kidney infection. ? ? Kidney stones. ? ? A very painful skin rash caused by the chickenpox virus (shingles). ? ? Gallbladder disease. ? HOME CARE INSTRUCTIONS Home care will depend on the cause of your pain. In general, ? Rest as directed by your caregiver. ? Drink enough fluids to keep your urine clear or pale yellow. ? Only take [id number] or prescription medicines as directed by your caregiver. Some medicines may help relieve the pain. ? Tell your caregiver about any changes in your pain. ? Follow up with your caregiver as directed. SEEK IMMEDIATE MEDICAL CARE IF: ? Your pain is not controlled with medicine. ? ? You have new or worsening symptoms. ? Your pain increases. ? ? You have abdominal pain. ? ? You have shortness of breath. ? ? You have persistent nausea or vomiting. ? ? You have swelling in your abdomen. ? ? You feel faint or pass out. ? ? You have blood in your urine. ? You have a fever or persistent symptoms for more than 2?3 days. ? You have a fever and your symptoms suddenly get worse. MAKE SURE YOU: ? Understand these instructions. ? Will watch your condition. ? Will get help right away if you are not doing well or get worse. Document Released: 09/13/2006 Document Revised: 04/16/2013 Document Reviewed: 03/06/2013 ExitCare? Patient Information ?2015 [employer]. This information is not intended to replace advice given to you by your health care provider. Make sure you discuss any questions you have with your health care provider. Nephrology Renal Cell Cancer Renal cell cancer (kidney cancer) is a disease in which cancer cells form in the linings of tubules of the kidney. A cancer is an uncontrolled growth of cells and can occur anywhere in the body. Your kidneys are the organs which filter your blood and keep it clean by getting rid of waste products from your body in your urine. Urine passes from the kidneys into the bladder through long tubes called ureters. The bladder stores the urine until it is passed from the body through the tube which drains the bladder to the outside (urethra). SYMPTOMS Early in the disease there may be no problems but as the disease worsens some of the problems seen are: ? Blood in the urine. ? Belly (abdominal) pain. ? Decreased red blood cells (anemia). ? A swelling in the belly. ? Loss of appetite and weight loss. ? Fever from unknown causes. DIAGNOSIS ? Your caregiver will do a physical exam. This means they check you over. ? Laboratory work may show problems (abnormalities) in the urine. ? Plain X-rays and some specialized x-rays may be done. Some of these may include a CT scan. Sometimes an IVP (intravenous pyelogram) is done. In this test a dye is injected into a vein and pictures are then taken of the kidneys. The dye travels to the inside of the kidneys, ureters and bladder. Let your caregivers know if you are allergic to iodine or have had a past reaction to dyes used in X-rays. Other specialized x-rays sometimes taken are the MRI (magnetic resonance imaging) and PET scan (positron emission technology). ? Angiography is sometimes done in which a dye is put into an artery leading to the kidney so the vessels surrounding the tumor or growth can be studied. ? Your caregiver will explain the value of the various testing to you and why it is necessary and helpful. If some of the above tests show a tumor or growth, sometimes a needle biopsy is done to confirm this and find out what the growth is made of. A fine needle aspiration (FNA) is used to remove a sliver of tissue from the kidney. This is done by sticking a needle through your skin and into the kidney. A specialist in looking at cells under the microscope (pathologist) then looks at the biopsy to determine what is wrong. The pathologist will check for cancer cells. Usually the previous tests mentioned have already given your surgeon enough information to know if an operation is needed. TREATMENT You will want to discuss treatment choices with your caregivers and see what the best treatment for you is. This will depend on various factors including your age, other health problems and what stage your disease is in. All of this will play a part in your outcome. Some of the treatment choices are: ? Surgery is the main treatment and chances of surviving without this are uncommon. Usually the entire kidney is removed if this is possible. This is called a radical nephrectomy. The surgeon removes your kidney, the small gland on top of the kidney (adrenal gland) and the fat surrounding the kidney. You have another adrenal gland on the other side so removing one is not a problem. Sometimes a partial nephrectomy is done in people with one kidney or people with cancer on both sides. This may help to avoid use of an artificial kidney (dialysis) as only part of a kidney is needed to filter your blood. ? Arterial embolization is another treatment. With this treatment a small catheter is threaded from your groin up into your kidney and material is injected into the artery supplying the tumor in the kidney. Without blood supply, the tumor dies off. Sometimes this procedure is used before kidney removal to cut down on blood loss. ? Radiation therapy or x-ray therapy can be used if your health is poor and will not allow surgery. Some of the problems with radiation include fatigue, nausea, vomiting, and damage to skin and surrounding tissues. ? Chemotherapy may be used. This is a treatment which uses cancer killing medications to fight the cancer. The side effects depend on the medications used. Some side effects may include nausea, vomiting, loss of weight, loss of appetite, hair loss and other problems. Your caregiver can usually give you medications to overcome most of the problems. ? There are many other forms of treatment your caregivers can discuss with you. Together you can determine which treatment will be best for you. ? The more you know when dealing with these problems, the more comfortable you will be. Talk over your treatment over with your loved ones. Get a second opinion if you feel it will be of help. Often your surgeon and other caregivers may recommend this for your own comfort or peace of mind. Document Released: 06/02/2005 Document Revised: 10/14/2012 Document Reviewed: 05/13/2009 ExitCare? Patient Information ?2015 [employer]. This information is not intended to replace advice given to you by your health care provider. Make sure you discuss any questions you have with your health care provider. Normal [facility] ED Patient Summaryon 018 ED Patient Summary [place] [id number] Patient Discharge Instructions Person Information Name: JENNIFER ALEJANDRO Age: 43 Years Arrival Date: 06/25/2018 3:38 PM Discharge Diagnosis: Flank pain; Right renal mass Primary Care Physician: Elvira Whipple MD Provider Information Primary Provider: Mack Spencer M.D. [employer] Associate:Michael Han PA-C The exam and treatment you received in the Emergency Department were for an urgent problem and are not intended as complete care. It is important that you follow up with a doctor, nurse practitioner, or physician?s personal care assistant for ongoing care. If your symptoms become worse or you do not improve as expected and you are unable to reach your usual health care provider, you should return to the Emergency Department. We are available 24 hours a day. JENNIFER ALEJANDRO has been given the following list of patient education materials, prescriptions and follow-up instructions: Follow-up Instructions: With: Address: When: [address], [address], [facility] [address] [place] [address] [employer] (1) In 3 days 06/28/2018 In the event that this physician does not participate in your insurance network, please consult with your insurance company to find a nearby participating provider. Patient Education Materials: Kidney Cancer; Flank Pain A MESSAGE TO ALL PATIENTS REGARDING OPIOIDS PRESCRIPTION OPIOIDS: WHAT YOU NEED TO KNOW Prescription opioids can be used to help relieve ihweruyi-sn-vohidv pain and are often prescribed following a surgery or injury, or for certain health conditions. These medications can be an important part of the treatment but also come with serious risks. It is important to work with your healthcare provider to make sure you are getting the safest, most effective care. WHAT ARE THE RISKS AND SIDE EFFECTS OF OPIOID USE? Prescription opioids carry serious risks of addiction and overdose, especially with prolonged use. An opioid overdose, often marked by slowed breathing, can cause sudden . The use of prescription opioids can have a number of side effects as well, even when taken as directed: ? Tolerance?meaning you might need to take more of the medication for the same pain relief ? Physical dependence?meaning you have symptoms of withdrawal when a medication is stopped ? Increased sensitivity to pain ? Constipation ? Nausea, vomiting, and dry mouth ? Sleepiness and dizziness ? Confusion ? Depression ? Low levels of testosterone that can result in lower sex drive, energy, and strength ? Itching and sweating RISKS ARE GREATER WITH: ? History of drug misuse, substance use disorder, or overdose ? Mental health conditions (such as depression or anxiety) ? Sleep apnea ? Older age (65 years and older) ? Avoid alcohol while taking prescription opioids. Also, unless specifically advised by your health care provider, medications to avoid include: ? Benzodiazepines (such as Xanax or Valium) ? Muscle relaxants (such as Soma or Flexeril) ? Hypnotics (such as Ambien or Lunesta) ? Other prescription opioids KNOW YOUR OPTIONS Talk to your health care provider about ways to manage your pain that don?t involve prescription opioids. Some of these options may actually work better and have fewer risks and side effects. Options may include: ? Pain relievers such as acetaminophen, ibuprofen, and naproxen ? Some medication that are also used for depression or seizures ? Physical therapy and exercise ? Cognitive behavioral therapy, a psychological, goal-directed approach, in which patients learn how to modify physical, behavioral, and emotional triggers of pain and stress. IF YOU ARE PRESCRIBED OPIOIDS FOR PAIN: ? Never take opioids in greater amounts or more often than prescribed. ? Follow up with your primary health care provider. o Work together to create a plan on how to manage your pain. o Talk about ways to help manage your pain that don?t involve prescription opioids. o Talk about any and all concerns and side effects. ? Help prevent misuse and abuse o Never sell or share prescription opioids. o Never use another person?s prescription opioids. ? Store prescription opioids in a secure place and out of reach of others (this may include visitors, children, friends, and family). ? Safely dispose of unused prescription opioids: Find your community drug take-back program or your pharmacy mail-back program, or flush them down the toilet, following guidance from the Food and Drug Administration (www.fda.gov/Drugs/Res ourcesForYou). ? Visit www.cdc.gov/drugoverdo se to learn about the risks of opioids abuse and overdose. ? If you believe you may be struggling with addiction, tell your health primary care provider and ask for guidance or call [facility] National Helpline at 5-115-975-WFCR. r Source: [place] Department of Health and Human Services/Center for Disease Control & Prevention [facility] Medications Given: Medication Dose Route Sodium Chloride 0.9% intravenous solution 1000.00 mL Initial Volume 1000.00 mL/hr IV Left Antecubital [place] potassium chloride 20.00 mEq Oral Medication Information: New Medications Printed Prescriptions ondansetron (Zofran ODT 4 mg Tab-Dis) 1 Tabs By Mouth 3 times a day. Refills: 0. tramadol (Ultram 50 mg Tab) 1 Tabs By Mouth every 6 hours for 3 Days. Take one tab by mouth every six hours as needed for pain. Refills: 0. Comment: Pharmacy Information: Thank you for choosing [facility] Patient Education Materials: Renal Cell Cancer Renal cell cancer (kidney cancer) is a disease in which cancer cells form in the linings of tubules of the kidney. A cancer is an uncontrolled growth of cells and can occur anywhere in the body. Your kidneys are the organs which filter your blood and keep it clean by getting rid of waste products from your body in your urine. Urine passes from the kidneys into the bladder through long tubes called ureters. The bladder stores the urine until it is passed from the body through the tube which drains the bladder to the outside (urethra). SYMPTOMS Early in the disease there may be no problems but as the disease worsens some of the problems seen are: ? Blood in the urine. ? Belly (abdominal) pain. ? Decreased red blood cells (anemia). ? A swelling in the belly. ? Loss of appetite and weight loss. ? Fever from unknown causes. DIAGNOSIS ? Your caregiver will do a physical exam. This means they check you over. ? Laboratory work may show problems (abnormalities) in the urine. ? Plain X-rays and some specialized x-rays may be done. Some of these may include a CT scan. Sometimes an IVP (intravenous pyelogram) is done. In this test a dye is injected into a vein and pictures are then taken of the kidneys. The dye travels to the inside of the kidneys, ureters and bladder. Let your caregivers know if you are allergic to iodine or have had a past reaction to dyes used in X-rays. Other specialized x-rays sometimes taken are the MRI (magnetic resonance imaging) and PET scan (positron emission technology). ? Angiography is sometimes done in which a dye is put into an artery leading to the kidney so the vessels surrounding the tumor or growth can be studied. ? Your caregiver will explain the value of the various testing to you and why it is necessary and helpful. If some of the above tests show a tumor or growth, sometimes a needle biopsy is done to confirm this and find out what the growth is made of. A fine needle aspiration (FNA) is used to remove a sliver of tissue from the kidney. This is done by sticking a needle through your skin and into the kidney. A specialist in looking at cells under the microscope (pathologist) then looks at the biopsy to determine what is wrong. The pathologist will check for cancer cells. Usually the previous tests mentioned have already given your surgeon enough information to know if an operation is needed. TREATMENT You will want to discuss treatment choices with your caregivers and see what the best treatment for you is. This will depend on various factors including your age, other health problems and what stage your disease is in. All of this will play a part in your outcome. Some of the treatment choices are: ? Surgery is the main treatment and chances of surviving without this are uncommon. Usually the entire kidney is removed if this is possible. This is called a radical nephrectomy. The surgeon removes your kidney, the small gland on top of the kidney (adrenal gland) and the fat surrounding the kidney. You have another adrenal gland on the other side so removing one is not a problem. Sometimes a partial nephrectomy is done in people with one kidney or people with cancer on both sides. This may help to avoid use of an artificial kidney (dialysis) as only part of a kidney is needed to filter your blood. ? Arterial embolization is another treatment. With this treatment a small catheter is threaded from your groin up into your kidney and material is injected into the artery supplying the tumor in the kidney. Without blood supply, the tumor dies off. Sometimes this procedure is used before kidney removal to cut down on blood loss. ? Radiation therapy or x-ray therapy can be used if your health is poor and will not allow surgery. Some of the problems with radiation include fatigue, nausea, vomiting, and damage to skin and surrounding tissues. ? Chemotherapy may be used. This is a treatment which uses cancer killing medications to fight the cancer. The side effects depend on the medications used. Some side effects may include nausea, vomiting, loss of weight, loss of appetite, hair loss and other problems. Your caregiver can usually give you medications to overcome most of the problems. ? There are many other forms of treatment your caregivers can discuss with you. Together you can determine which treatment will be best for you. ? The more you know when dealing with these problems, the more comfortable you will be. Talk over your treatment over with your loved ones. Get a second opinion if you feel it will be of help. Often your surgeon and other caregivers may recommend this for your own comfort or peace of mind. Document Released: 06/02/2005 Document Revised: 10/14/2012 Document Reviewed: 05/13/2009 ExitCare? Patient Information ?2014 [employer]. This information is not intended to replace advice given to you by your health care provider. Make sure you discuss any questions you have with your health care provider. Flank Pain Flank pain refers to pain that is located on the side of the body between the upper abdomen and the back. The pain may occur over a short period of time (acute) or may be long-term or reoccurring (chronic). It may be mild or severe. Flank pain can be caused by many things. CAUSES Some of the more common causes of flank pain include: ? Muscle strains. ? ? Muscle spasms. ? ? A disease of your spine (vertebral disk disease). ? ? A lung infection (pneumonia). ? ? Fluid around your lungs (pulmonary edema). ? ? A kidney infection. ? ? Kidney stones. ? ? A very painful skin rash caused by the chickenpox virus (shingles). ? ? Gallbladder disease. ? HOME CARE INSTRUCTIONS Home care will depend on the cause of your pain. In general, ? Rest as directed by your caregiver. ? Drink enough fluids to keep your urine clear or pale yellow. ? Only take qjwm-nvr-lcorfmz or prescription medicines as directed by your caregiver. Some medicines may help relieve the pain. ? Tell your caregiver about any changes in your pain. ? Follow up with your caregiver as directed. SEEK IMMEDIATE MEDICAL CARE IF: ? Your pain is not controlled with medicine. ? ? You have new or worsening symptoms. ? Your pain increases. ? ? You have abdominal pain. ? ? You have shortness of breath. ? ? You have persistent nausea or vomiting. ? ? You have swelling in your abdomen. ? ? You feel faint or pass out. ? ? You have blood in your urine. ? You have a fever or persistent symptoms for more than 2?3 days. ? You have a fever and your symptoms suddenly get worse. MAKE SURE YOU: ? Understand these instructions. ? Will watch your condition. ? Will get help right away if you are not doing well or get worse. Document Released: 09/13/2006 Document Revised: 04/16/2013 Document Reviewed: 03/06/2013 ExitCare? Patient Information ?2015 [employer]. This information is not intended to replace advice given to you by your health care provider. Make sure you discuss any questions you have with your health care provider. FLAVIA Rodriguez AMBER L , have received the following patient education materials/instructions and have verbalized understanding: Patient Education Materials: Kidney Cancer; Flank Pain Follow-up Instructions: With: Address: When: [address], [address], [facility] [address] [place] [address] Business (1) In 3 days 06/28/2018 Prescriptions: [ondansetron (Zofran ODT 4 mg Tab-Dis)] [tramadol (Ultram 50 mg Tab)] Patient Signature Date Clinician/Nurse Signature ___ Date 06/25/18 18:07:[address] [facility] UA With Cult Reflexon 2017 Bilirubin Ql (U) Negative Normal Negative [facility] Comment on above: Performed By: #### 1 [id number] #### [facility] [address] [place] [address] Clarity Nom (U) CLEAR Normal Clear [facility] Comment on above: Performed By: #### 1 [id number] #### [facility] [address] [place] [address] Color Nom (U) YELLOW Normal Yellow [facility] Comment on above: Performed By: #### 1 [id number] #### [facility] [address] [place] [address] Epithelial cells.squamous LM.HPF #/area (Urine sed) 0-2 Normal 0-2 [facility] Comment on above: Performed By: #### 1 [id number] #### [facility] [address] [place] [address] Glucose Test strip mass conc (U) Negative Normal Negative [facility] Comment on above: Performed By: #### 1 [id number] #### [facility] [address] [place] [address] Hemoglobin Ql (U) TRACE Abnormal Negative [facility] Comment on above: Performed By: #### 1 [id number] #### [facility] [address] [place] [address] Ketones mass conc (U) Negative Normal Negative [facility] Comment on above: Performed By: #### 1 [id number] #### [facility] [address] [place] [address] Stewart.plasma/Lit hium.RBC mass ratio (Bld) 4-20 Normal 0-3 [facility] Comment on above: Performed By: #### 1 [id number] #### [facility] [address] [place] [address] Nitrite Ql (U) Negative Normal Negative [facility] Comment on above: Performed By: #### 1 [id number] #### [facility] [address] [place] [address] pH (U) 6.0 [pH] 5.0-9.0 [facility] Comment on above: Performed By: #### 1 [id number] #### [facility] [address] [place] [address] Protein mass conc (U) Negative Normal Negative [facility] Comment on above: Performed By: #### 1 [id number] #### [facility] [address] [place] [address] Specific gravity Relative Density (U) <=1.005 1.005-1.030 [facility] Comment on above: Performed By: #### 1 [id number] #### [facility] [address] [place] [address] UA Spec Desc Clean Catch Normal [facility] Comment on above: Performed By: #### 1 [id number] #### [facility] [address] [place] [address] Urobilinogen Qn (U) 0.2 {Pascale'U}/dL Normal 0.0-1.0 [facility] Comment on above: Performed By: #### 1 [id number] #### [facility] [address] [place] [address] WBC Auto Ql (U) Negative Normal Negative [facility] Comment on above: Performed By: #### 1 [id number] #### [facility] [address] [place] [address] WBC LM.HPF #/area (Urine sed) 0-5 Normal 0-5 [facility] Comment on above: Performed By: #### 1 [id number] #### [facility] [address] [place] [address] eGFRon 06-25-2018 GFR/1.73 sq M predicted among blacks MDRD vol rate/area (S/P/Bld) mL/min/{1.73_m2} Normal >=59 [facility] Comment on above: Order Comment: Order added by Discern Expert. Result Comment: eGFR is race adjusted. AA=. Performed By: #### 2 [id number], [id number] #### [facility] [address] [place] [address] GFR/1.73 sq M predicted among non-blacks MDRD vol rate/area (S/P/Bld) mL/min/{1.73_m2} Normal >=59 [facility] Comment on above: Order Comment: Order added by Discern Expert. Result Comment: [employer] heydi kidney disease could be indicated at eGFR's of less than 60 mL/min/1.73m2. Kidney failure is indicated at less than 15 mL/min/1.73m2. Performed By: #### 2 [id number], [id number], [id number] #### [facility] [address] [place] [address] Vital Signs Date Time Vital Sign Value Performing Clinician Facility 12-11-2023 08:53-0400 Body height 160.02 cm MD Trae Julian Work Phone: [facility] 12-11-2023 08:53-0400 Body weight 96.61 kg MD Trae Julian Work Phone: [facility] 04-27-2023 15:56-0400 Body height 160 cm Trae Kramer MD Work Phone: [facility] 04-27-2023 15:56-0400 Body weight 93.8 kg Trae Kramer MD Work Phone: [facility] 04-27-2023 15:56-0400 Diastolic blood pressure 80 mm[Hg] Trae Kramer MD Work Phone: [facility] 04-27-2023 15:56-0400 Heart rate 67 /min Trae Kramer MD Work Phone: [facility] 04-27-2023 15:56-0400 Systolic blood pressure 119 mm[Hg] Trae Kramer MD Work Phone: [facility] 11-01-2022 09:30-0400 Body height 160.02 cm Gualberto Jacobsen Other [facility] Other 11-01-2022 09:30-0400 Body mass index (BMI) [Ratio] 35.12 kg/m2 Gualberto Jacobsen Other [facility] Other 11-01-2022 09:30-0400 Body weight 89.95 kg Gualberto Jacobsen Other [facility] Other 11-01-2022 09:30-0400 Diastolic blood pressure 78 mm[Hg] Gualberto Jacobsen Other [facility] Other 11-01-2022 09:30-0400 Respiratory rate 18 /min Gualberto Jacobsen Other [facility] Other 11-01-2022 09:30-0400 SaO2% (BldA) [Mass fraction] 99 % Gualberto Farfandiff Other [facility] Other 11-01-2022 09:30-0400 Systolic blood pressure 140 mm[Hg] Gualberto Farfandiff Other [facility] Other 09-12-2022 12:15-0500 Body height 160.02 cm Luli Ginomariya Other [facility] Other 09-05-2022 12:15-0500 Body height 160.02 cm Gualberto Farfandiff Other [facility] Other 09-05-2022 12:15-0500 Body mass index (BMI) [Ratio] 35.42 kg/m2 Gualberto Farfandiff Other [facility] Other 09-05-2022 12:15-0500 Body weight 90.72 kg Gualberto Farfandiff Other [facility] Other 09-05-2022 12:15-0500 Diastolic blood pressure 73 mm[Hg] Gualberto Ann-Marie Other [facility] Other 09-05-2022 12:15-0500 Respiratory rate 18 /min Gualberto Farfandiff Other [facility] Other 09-05-2022 12:15-0500 SaO2% (BldA) [Mass fraction] 98 % Gualberto Jacobsen Other [facility] Other 09-05-2022 12:15-0500 Systolic blood pressure 113 mm[Hg] Gualberto Jacobsen Other [facility] Other 04-24-2022 08:54-0400 Body height 160.02 cm MD Trae Julian Work Phone: [facility] 04-24-2022 08:54-0400 Body temperature 98.4 [degF] MD Trae Julian Work Phone: [facility] 04-24-2022 08:54-0400 Body weight 90.5 kg MD Trae Julian Work Phone: [facility] 04-24-2022 08:54-0400 Diastolic blood pressure 89 mm[Hg] MD Trae Julian Work Phone: [facility] 04-24-2022 08:54-0400 Heart rate 88 /min MD Trae Julian Work Phone: [facility] 04-24-2022 08:54-0400 Respiratory rate 16 /min MD Trae Julian Work Phone: [facility] 04-24-2022 08:54-0400 SaO2% (BldA) [Mass fraction] 98 % MD Trae Julian Work Phone: [facility] 04-24-2022 08:54-0400 Systolic blood pressure 140 mm[Hg] MD Trae Julian Work Phone: [facility] Encounters Encounter Date Encounter Type Care Provider Facility Start: 01-09-2024 End: 01-09-2024 ambulatory MAHNAZ WEAVER V Not Available Start: 12-11-2023 End: 12-11-2023 ambulatory Radha Risaliti Facility:[facility] Start: 12-11-2023 End: 12-11-2023 ambulatory MD Trae Julian Work Phone: [facility] Work Phone: Start: 12-11-2023 End: 12-11-2023 Patient encounter procedure MD Tare Julian Work Phone: [facility]-Nuc [facility] [place] Work Phone: Start: 08-21-2023 End: 08-21-2023 ambulatory TRAE JULIAN Not Available Start: 04-27-2023 End: 04-28-2023 ambulatory TRAE JULIAN Facility:[facility] Start: 04-27-2023 End: 04-27-2023 ambulatory TRAE JULIAN Facility:[facility] Start: 04-27-2023 End: 04-27-2023 Patient encounter procedure Trae Kramer MD Work Phone: Urology Comment on above: Encounter for follow -up surveillance of kidney cancer (Primary Dx); History of renal cell carcinoma; H/O partial nephrectomy Start: 04-27-2023 End: 04-27-2023 Subsequent hospital visit by physician Xr Chest [facility] Comment on above: H/O partial nephrect giuseppe [Z90.5] Start: 03-24-2023 Refill Ktahrin Bowers Work Phone: Neurology Comment on above: Refill Request Start: 11-01-2022 End: 11-01-2022 ambulatory Gualberto Jacobsen Other [facility] Other Start: 11-01-2022 Follow-up encounter [facility] Start: 11-01-2022 Registered Recurring MD Trae Julian Work Phone: [facility]-Weight Management Work Phone: Start: 10-04-2022 End: 10-04-2022 ambulatory MD Trae Julian Work Phone: [facility] Work Phone: Start: 10-04-2022 End: 10-04-2022 Patient encounter procedure MD Trae Julian Work Phone: [facility]-Self Pay Exercise Program Start: 09-12-2022 End: 09-12-2022 ambulatory Luli Rodriguez Other [facility] Other Start: 09-12-2022 IBT FOR OBESITY GROU P 2-10 30M Luli Rodriguez [facility] Start: 09-08-2022 End: 09-08-2022 ambulatory Gualberto Jacobsen Other [facility] Other Start: 09-08-2022 Telephone encounter Gualberto hernandez [facility] Start: 09-05-2022 End: 09-05-2022 ambulatory Gualberto Jacobsen Other [facility] Other Start: 09-05-2022 Follow-up encounter Gual[facility]to her[facility] Start: 09-02-2022 End: 09-02-2022 ambulatory Gualberto Jacobsen Other [facility] Other Start: 09-02-2022 Encounter by raz mcdaniel Gualberto Kirkpatrickff [facility] Start: 08-28-2022 End: 08-28-2022 ambulatory Luli Christianmariya Other [facility] Other Start: 08-28-2022 Telephone encounter Luli Rodriguez [facility] Start: 08-14-2022 End: 08-15-[address] ZANE MANTILLA Facility:[facility] Start: 08-08-2022 End: 08-08-2022 Patient encounter procedure Trae Kramer MD Work Phone: Urology Comment on above: APPOINTMENT CANCELLE D (Primary Dx) Start: 07-19-2022 End: 07-19-[address] TRAE JULIAN Facility:[facility] Start: 05-09-2022 End: 05-10-[address] TRAE JULIAN Facility:[facility] Start: 04-24-2022 End: 04-24-2022 Patient encounter procedure MD Trae Julian Work Phone: [facility]Pre-S[facility] Start: 02-23-2022 Chart abstracting Autumn Vang Research Coordinator Neurology Start: 02-07-2022 Telephone encounter Kathrin Feldman ed, MD Work Phone: Neurology Comment on above: Insurance Authorizat ion (Aimovig 70mg) Start: 02-07-2022 End: 02-07-2022 ambulatory Kathrin Zeng MD Work Phone: Neurology Comment on above: Chronic migraine wit hout aura, with intractable migraine, so stated, with status migrainosus Start: 02-07-2022 End: 02-07-2022 Telemedicine consultation with patient Kathrin Zeng MD Work Phone: [facility] Start: 11-11-2021 End: 11-12-[address] ZANE MANTILLA Facility:[facility] Start: 10-18-2021 Encounter for genera l adult medical examination without abnormal findings DR TRAE JULIAN [facility] Start: 10-17-2021 End: 10-18-[address] TRAE JULIAN Facility:[facility] Start: 10-17-2021 End: 10-18-2021 Encounter for general adult medical examination without abnormal findings DR TRAE JULIAN Facility: Start: 07-18-2018 End: 07-18-2018 Emergency department patient visit ELVIRA WHIPPLE [facility] Start: 06-26-2018 End: 06-27-2018 Patient encounter procedure Elliott Mandujano Facility:[facility] [place] Start: 06-25-2018 End: 06-25-2018 Emergency department patient visit Mack Charles Johanna Facility:[facility] – [place] Start: 06-25-2018 End: 06-26-2018 Patient encounter procedure Elvira~[id number] UNKNOWN Hoy Facility:[facility] – [place] Start: 05-09-2017 End: 05-10-2017 Ambulatory DEFAULT PHYSICIAN Facility:[facility] Procedures Date Procedure Procedure Detail Performing Clinician Start: 12-11-2023 Radionuclide study o f abdomen MD Trae Julian Work Phone: Start: 04-27-2023 Mri abdomen w/o & w/contrast material Tanisha Alvarez DIRECTOR OF PHARMACY.ADMINISTRATIVE OFFICE ASSISTANT Work Phone: Start: 02-06-2022 Adult depression scr eening assessment Kathrin Zeng MD Work Phone: Start: 07-18-2018 Ct thorax w/contrast material ELVIRA HOY Start: 07-18-2018 Urine test visual color cmprsn meths ELVIRA HOY Start: 07-18-2018 Radiologic exam ches t 2 views ELVIRA HOY Start: 07-18-2018 D-DIMER, QUANTITATIVE D OUANDRZEJ WHIPPLE Start: 07-18-2018 Assay of lipase ELVIRA WHIPPLE Start: 07-18-2018 Basic metabolic pane l calcium total ELVIRA WHIPPLE Start: 07-18-2018 Blood count complete auto&auto difrntl wbc ELVIRA WHIPPLE Start: 07-18-2018 Hepatic function panel ELVIRA WHIPPLE Start: 07-18-2018 TROPONIN ELVIRA Story Start: 07-18-2018 INSERT PERIPHERAL IV DO CINDY WHIPPLE Start: 07-18-2018 TELEMETRY MONITORING DO CINDY WHIPPLE Start: 07-18-2018 VITAL SIGNS ELVIRA MUÑOZ Y Start: 07-18-2018 EKG 12-LEAD ELVIRA Story Plan of Treatment Date Care Activity Detail Author Start: 04-27-2026 Diabetes Screening Diabetes Screenin g [facility] Start: 04-27-2024 End: 06-27-2024 Basic metabolic 2000 panel - Serum or Plasma BASIC METABOLIC PNL Lab Routine History of renal cell carcinoma Expected: 04/27/2024 (Approximate), Expires: 06/27/2024 [facility] Work Phone: Comment on above: Expected: 04/27/2024 (Approximate), Expires: 06/27/2024 Start: 05-28-2023 DIABETES SCREEN DIABETES SCREEN [facility] Start: 04-06-2023 Influenza vaccination [facility] Start: 02-06-2023 Adult depression screening assessment DEPRESSION SCREENING [facility] Start: 08-06-2022 DEPRESSION ASSESSMENT DEPRESSION ASS ESSMENT [facility] Start: 04-06-2022 Influenza vaccination INFLUENZA (#1) [facility] Start: 2022 COLOGUARD (FIT-DNA) COLOGUARD (FIT-D NA) [facility] Start: 2022 Colonoscopy COLONOSCOPY [facility] Start: 2022 COLORECTAL CANCER SCREENING COLORECTAL CANCER SCREENING [facility] Start: [address] COLONOGRAPHY [facility] Start: 2022 FECAL OCCULT BLOOD FECAL OCCULT BLOO D [facility] Start: 2022 Lipid 1996 panel - S hector or Plasma Lipid Screening [facility] Start: 2022 LIPID SCREEN LIPID SCREEN [facility] Start: 2022 SIGMOIDOSCOPY SIGMOIDOSCOPY [facility] Start: 2017 Mammography [facility] Start: 2007 HPV TESTING HPV TESTING [facility] Start: 1998 PAP TESTING PAP TESTING [facility] Start: 02-01-1996 Urine microalbumin profile [facility] Start: 1995 HEPATITIS C SCREENING HEPATITIS C SC REENING [facility] Start: 1995 HIV SCREENING HIV SCREENING [facility] Start: 1977 COVID-19 VACCINE (#1) COVID-19 VACCI NE (#1) [facility] Start: 1977 HEPATITIS B (1 of 3 - 3-dose series) HEPATITIS B (1 of 3 - 3-dose series) [facility] Start: 1977 Hepatitis B Vaccine (1 of 3 - 3-dose series) Hepatitis B Vaccine (1 of 3 - 3-dose series) [facility] End: 05-26-2024 Mri abdomen w/o & w/contrast material MRI ABDOMEN WO/W IVCON Radiology Routine History of renal cell carcinoma 1 Occurrences starting 04/27/2023 until 05/26/2024 [facility] Work Phone: Comment on above: 1 Occurrences starti ng 04/27/2023 until 05/26/2024 Radiologic exam ches t 2 views XR CHEST 2V FRONTAL/LAT Radiology Routine H/O partial nephrectomy 04/27/2023 4:18 PM EDT [facility] Work Phone: End: 05-26-2024 Radiologic exam chest 2 views XR CHEST 2V FRONTAL/LAT Radiology Routine History of renal cell carcinoma 1 Occurrences starting 04/27/2023 until 05/26/2024 [facility] Work Phone: Comment on above: 1 Occurrences starti ng 04/27/2023 until 05/26/2024 [facility] Payers Date Payer Category Payer Self-pay [id number] 2023 Private Health Insurance [id number] 2018 Medicaid [employer] [employer] [id number] 2018-Present [phone] [address] [place] [address] Medicaid [id number] 2018 Medicaid [id number] 2018 Medicaid [id number] 2017 Unknown [id number] 1977 Unknown [id number]. 173 1977 Unknown [id number] 2.16.840.1.696359.3.579.2. 727 1977 Unknown [id number] 2.16.840.1.717896.3.579.2. 727 1977 Unknown [id number] 2.16.840.1.619994.3.579.2. 727 1977 Unknown [id number] 2.16.840.1.602848.3.579.2. 593 1977 Unknown [id number] 2.16.840.1.986988.3.579.2. 593 1977 Unknown [id number] 2.16.840.1.503433.3.579.2. 593 1977 Unknown [id number] 2.16.840.1.922202.3.579.2. 593 1977 Unknown [id number] 2.16.840.1.015388.3.579.2. 593 1977 Unknown [id number] 2.16.840.1.319392.3.579.2. 1259 1977 Unknown [id number] 2.16.840.1.709712.3.579.2. 1259 1959 Medicaid [id number] 1959 Unknown [id number] Private Health Insurance [facility] [id number] Unknown Unknown [id number]. 531 Social History Date Type Detail Facility Start: 04-24-2022 End: 07-27-2022 Tobacco smoking status NHIS Ex-smoker [facility] Work Phone: Start: 08-06-1997 End: 08-06-2006 History of tobacco use Current smoker [facility] Start: 10-19-2021 End: 04-27-2023 Alcohol intake Current non-drinker of alcohol (finding) [facility] Start: 1975 Sex Assigned At Not on file [facility] Start: 1975 Sex Assigned At Female F [facility] Start: 10-19-2021 End: 04-27-2023 Sex Assigned At [facility] Start: 08-06-1997 End: 08-06-2006 History of tobacco use Cigarette Smoker [facility] Start: 05-28-2020 End: 04-27-2023 Cigarettes smoked current (pack per day) - Reported 1 [facility] Start: 05-28-2020 End: 04-27-2023 Tobacco use and exposure Smokeless tobacco non-user [facility] Adult Depression Screening Assessment 6 [facility] Clinical Notes 09-13-2010 to 04-27-2023 Tanisha Alvarez APRN.ADMINISTRATIVE OFFICE ASSISTANT - 04/27/2023 3:30 PM Joel Jacobo RT(R) - 04/27/2023 2:30 PM Tiesha Medel RN - 04/27/2023 2:14 PM EDT Note Date & Type Note Facility 04-27-2023 Note HNO ID: [id number] Author: Tanisha Alvarez APRN.JUWAN Service: ? Author Type: Nurse Practitioner Type: Progress Notes Filed: 04/27/2023 9:25 PM Note Text: Chief Complaint: follow up RCC Clinic note from 05/28/2020 copied and updated. HPI: Jennifer L Flavia is a 48 year old female with hx of RCC who presents for follow up evaluation. She is s/p right robotic laparoscopic partial nephrectomy on 08/29/2018. 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 MRI abdomen, CXR, and BMP today are in process. Interval Hx: Overall, doing well. No flank or abdominal pain. No gross ehmaturia. 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 - Surgical margins are negative for carcinoma. - See synoptic report. IMAGING MRI KIDNEY WO/W IVCON 05/04/2021 IMPRESSION: Stable changes following RIGHT partial nephrectomy without recurrence, lymphadenopathy or abdominal metastasis. Marked diffuse hepatic steatosis. XR CHEST 2V FRONTAL/LAT 05/04/2021 IMPRESSION: Slight interstitial prominence with no mass lesion seen. No interval change is seen REVIEW OF SYSTEMS GENERAL:No weight loss, malaise or fevers., SEE HPI GENITOURINARY: Negative for dysuria and hematuria The remainder of the ROS was negative. HISTORIES PAST MEDICAL HISTORY Diagnosis Date Back pain Hypokalemia May-Thurner syndrome Migraine PFO (patent foramen ovale) Renal cell carcinoma (HCC) s/p R robotic laparoscopic partial nephrectomy on 08/29/2018 [facility] Sickle cell trait (HCC) TIA (transient ischemic attack) in her 30's FAMILY HISTORY Problem Relation Age of Onset Diabetes Mother Uterine Cancer Mother dx early 40s Diabetes Maternal Grandfather Leukemia Brother 24 AML Cervical Cancer Maternal Grandmother Leukemia Paternal Uncle No Ocular Disease No Family History SOCIAL HISTORY Social History Tobacco Use Smoking status: Former Packs/day: 1.00 Years: 10.00 Additional pack years: 0.00 Total pack years: 10.00 Types: Cigarettes Start date: 1997 Quit date: 2006 Years since quittin.7 Smokeless tobacco: Never Substance Use Topics Alcohol use: No Drug use: No PHYSICAL EXAMINATION General appearance: Well appearing, alert, in no acute distress, and well-hydrated, well nourished Lungs: Clear to auscultation no wheezing or rhonchi Heart: RRR without murmur, gallop, or rubs. No ectopy Abdomen: Abdomen soft, non-tender. Bowel sounds normal. No masses, organomegaly, Negative CVA tenderness Genitourinary: deferred Assessment (Z08, Z85.528) Encounter for follow-up surveillance of kidney cancer (primary encounter diagnosis) (Z85.528) History of renal cell carcinoma (Z90.5) H/O partial nephrectomy 48 year old female s/p right robotic laparoscopic partial nephrectomy on 08/29/2018 Testing today in process Reviewed NCCN guidelines for surveillance She has no urologic concerns today Plan -Follow up with pending MRI, CXR, and lab results (okay to MyChart with results) -Pending above, f/u virtual visit in 1 year with MRI abdomen, CXR, and BMP Discussed with Dr. Kramer. Tanisha Alvarez APRN.[facility] 04-27-2023 Note HNO ID: [id number] Author: Joel Cheng RT(R) Service: Radiology Author Type: Technologist Type: Progress Notes Filed: 04/27/2023 4:07 PM Note Text: Radiology Service Progress Note PATIENT NAME: Jennifer Alejandro DATE OF SERVICE: April 27, 2023 TIME: 4:07 PM PATIENT IDENTITY VERIFICATION COMPLETED USING TWO (2) IDENTIFIERS: Name and Date of confirmed by patient verbally. FALL SCREENING: Has the patient had 2 falls in the last year or 1 fall with injury or currently using an Ambulatory Assistive Device (Walker, Cane, Wheelchair, Crutches, etc.)? No PATIENT GENDER DATA: Female. status: : No status: NO. PATIENT RELEVANT IMPLANT DATA REVIEWED: Not Applicable RADIOLOGY DEPARTMENT: General X-ray: Exam(s) Completed: Chest X-Ray PERIPHERAL IV DATA: Not applicable SIGNED BY: RT Ruben(R) April 27, 2023 4:07 PM [facility] 04-27-2023 Note HNO ID: [id number] Author: Tiesha Dominguez RN Service: Radiology Author Type: Registered Nurse Type: Progress Notes Filed: 04/27/2023 2:22 PM Note Text: Radiology Service Progress Note DATE OF SERVICE: April 27, 2023 TIME: 2:14 PM PATIENT WEIGHT: 200 LBS PATIENT IDENTITY VERIFICATION COMPLETED USING TWO (2) STANDARD IDENTIFIERS: Name and Date of confirmed by patient verbally and Name and Date of confirmed by identification band. FALL SCREENING: Has the patient had 2 falls in the last year or 1 fall with injury or currently using an Ambulatory Assistive Device (Walker, Cane, Wheelchair, Crutches, etc.)? No PATIENT GENDER DATA: Female. status: : No status: NO. ALLERGIES: Reviewed and unchanged CONTRAST ALLERGY: No EXAM: MRI - CONTRAST TYPE: GROUP II IV SITE: Ambulatory: A peripheral IV was started in the Right antecubital site with a Angio cath: 22 gauge. and A Saline lock was inserted per protocol IV SITE APPEARANCE: Clean,Dry and Intact SIGNATURE: Tiesha Dominguez RN PATIENT NAME: Jennifer Alejandro DATE: April 27, 2023 TIME: 2:14 PM [facility] 04-27-2023 History of Presen t illness Narrative Chief Complaint: follow up RCC Clinic note from 05/28/2020 copied and updated. HPI: Jennifer Alejandro is a 48 year old female with hx of RCC who presents for follow up evaluation. She is s/p right robotic laparoscopic partial nephrectomy on 08/29/2018. 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 MRI abdomen, CXR, and BMP today are in process. Interval Hx: Overall, doing well. No flank or abdominal pain. No gross ehmaturia. 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 - Surgical margins are negative for carcinoma. - See synoptic report. IMAGING MRI KIDNEY WO/W IVCON 05/04/2021 IMPRESSION: Stable changes following RIGHT partial nephrectomy without recurrence, lymphadenopathy or abdominal metastasis. Marked diffuse hepatic steatosis. XR CHEST 2V FRONTAL/LAT 05/04/2021 IMPRESSION: Slight interstitial prominence with no mass lesion seen. No interval change is seen REVIEW OF SYSTEMS GENERAL:No weight loss, malaise or fevers., SEE HPI GENITOURINARY: Negative for dysuria and hematuria The remainder of the ROS was negative. HISTORIES PAST MEDICAL HISTORY Diagnosis Date Back pain Hypokalemia May-Thurner syndrome Migraine PFO (patent foramen ovale) Renal cell carcinoma (HCC) s/p R robotic laparoscopic partial nephrectomy on 08/29/2018 [facility] Sickle cell trait (HCC) TIA (transient ischemic attack) in her 30's FAMILY HISTORY Problem Relation Age of Onset Diabetes Mother Uterine Cancer Mother dx early 40s Diabetes Maternal Grandfather Leukemia Brother 24 AML Cervical Cancer Maternal Grandmother Leukemia Paternal Uncle No Ocular Disease No Family History SOCIAL HISTORY Social History Tobacco Use Smoking status: Former Packs/day: 1.00 Years: 10.00 Additional pack years: 0.00 Total pack years: 10.00 Types: Cigarettes Start date: 1997 Quit date: 2006 Years since quittin.7 Smokeless tobacco: Never Substance Use Topics Alcohol use: No Drug use: No PHYSICAL EXAMINATION General appearance: Well appearing, alert, in no acute distress, and well-hydrated, well nourished Lungs: Clear to auscultation no wheezing or rhonchi Heart: RRR without murmur, gallop, or rubs. No ectopy Abdomen: Abdomen soft, non-tender. Bowel sounds normal. No masses, organomegaly, Negative CVA tenderness Genitourinary: deferred Assessment (Z08, Z85.528) Encounter for follow-up surveillance of kidney cancer (primary encounter diagnosis) (Z85.528) History of renal cell carcinoma (Z90.5) H/O partial nephrectomy 48 year old female s/p right robotic laparoscopic partial nephrectomy on 08/29/2018 Testing today in process Reviewed NCCN guidelines for surveillance She has no urologic concerns today Plan -Follow up with pending MRI, CXR, and lab results (okay to MyChart with results) -Pending above, f/u virtual visit in 1 year with MRI abdomen, CXR, and BMP Discussed with Dr. Kramer. Tanisha Alvarez APRN.JUWAN documented in this encounter [facility] 04-27-2023 History of Presen t illness Narrative Radiology Service Progress Note PATIENT NAME: Jennifer Alejandro DATE OF SERVICE: April 27, 2023 TIME: 4:07 PM PATIENT IDENTITY VERIFICATION COMPLETED USING TWO (2) IDENTIFIERS: Name and Date of confirmed by patient verbally. FALL SCREENING: Has the patient had 2 falls in the last year or 1 fall with injury or currently using an Ambulatory Assistive Device (Walker, Cane, Wheelchair, Crutches, etc.)? No PATIENT GENDER DATA: Female. status: : No status: NO. PATIENT RELEVANT IMPLANT DATA REVIEWED: Not Applicable RADIOLOGY DEPARTMENT: General X-ray: Exam(s) Completed: Chest X-Ray PERIPHERAL IV DATA: Not applicable SIGNED BY: RT Ruben(R) April 27, 2023 4:07 PM documented in this encounter [facility] 04-27-2023 History of Presen t illness Narrative Radiology Service Progress Note DATE OF SERVICE: April 27, 2023 TIME: 2:14 PM PATIENT WEIGHT: 200 LBS PATIENT IDENTITY VERIFICATION COMPLETED USING TWO (2) STANDARD IDENTIFIERS: Name and Date of confirmed by patient verbally and Name and Date of confirmed by identification band. FALL SCREENING: Has the patient had 2 falls in the last year or 1 fall with injury or currently using an Ambulatory Assistive Device (Walker, Cane, Wheelchair, Crutches, etc.)? No PATIENT GENDER DATA: Female. status: : No status: NO. ALLERGIES: Reviewed and unchanged CONTRAST ALLERGY: No EXAM: MRI - CONTRAST TYPE: GROUP II IV SITE: Ambulatory: A peripheral IV was started in the Right antecubital site with a Angio cath: 22 gauge. and A Saline lock was inserted per protocol IV SITE APPEARANCE: Clean,Dry and Intact SIGNATURE: Tiesha Dominguez RN PATIENT NAME: Jennifer Alejandro DATE: April 27, 2023 TIME: 2:14 PM documented in this encounter [facility] 04-27-2023 Note Patient Outreach (UR OLMN) JENNIFER ALEJANDRO ([id number]) 1975 F Date Time Provider Department 04/27/23 TRAE KRAMER During your visit today, we recorded the following information about you: Allergies As of Date: 04/27/2023 Noted Allergy Reaction SULFAMETHOXAZOLE-TRIMETHOPRIM 07/18/2018 2 - Rash Date Reviewed: 04/27/2023 Reviewed by: Tanisha Alvarez APRN.ADMINISTRATIVE OFFICE ASSISTANT - Fully Assessed Visit Diagnosis:Screening for genitourinary condition [Z13.89] Order(s):URINALYSIS, REFLEX MICROSCOPIC [[id number]] Order #: [id number]. #:[id number] Prescriptions as of 04/30/2023 - erenumab-aooe (AIMOVIG AUTOINJECTOR) 70 mg/mL auto-injector Inject 1 mL subcutaneously once every month. - urea (CARMOL) 40 % APPLY TO FEET TWICE A DAY NEEDED - propranolol (INDERAL) 40 mg tablet Take 1 tablet by mouth once daily. - cholecalciferol, Vitamin D3, (VITAMIN D3) 1,250 mcg (50,000 unit) cap capsule Take 50,000 Units by mouth one time a week. - aspirin, enteric coated (ECOTRIN LOW STRENGTH) 81 mg EC tablet Take 1 tablet by mouth once daily. - rizatriptan (MAXALT ICE PULLER) 10 mg disintegrating tablet rizatriptan 10 mg disintegrating tablet Take 1 tablet as needed by oral route for 9 days. 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 Patient last seen on 02/07/22. Overdue for follow up. documented in this encounter [facility] 11-01-2022 Evaluation note Encounter Date Diagnosis Assessment Notes Oct, Impaired fasting glucose (ICD-10 - R73.01) Oct, Obesity (BMI 35.0-39.9 without comorbidity) (ICD-10 - E66.9) Oct, Fatty liver (ICD-10 - K76.0) Oct, Mixed hyperlipidemia (ICD-10 - E78.2) Oct, Metabolic syndrome X (ICD-10 - E88.81) Oct, Kidney stones (ICD-10 - N20.0) [facility] Other 02-07-2023 Evaluation note* Encounter Date Diagnosis Assessment Notes Treatment Notes Treatment Clinical Notes Sep, Obesity, unspecified classification, unspecified obesity type, unspecified whether serious comorbidity present (ICD-10 - E66.9) Sep, BMI 35.0-35.9,adult (ICD-10 - Z68.35) Sep, Other Summary of Visi t: (A) Presentation of Plate Method discussed (B) Sample meal ideas reviewed (C) exercise recommendations reviewed Patient set the following goals: - patient set personal goal using given handout. [facility] Other 2023 Evaluation note* Encounter Date Diagnosis Assessment Notes Treatment Notes Treatment Clinical Notes Aug, Impaired fasting glucose (ICD-10 - R73.01) Aug, Obesity (BMI 35.0-39.9 without comorbidity) (ICD-10 - E66.9) Aug, Fatty liver (ICD-10 - K76.0) Aug, Mixed hyperlipidemia (ICD-10 - E78.2) Aug, Metabolic syndrome X (ICD-10 - E88.81) Aug, Kidney stones (ICD-1 0 - N20.0) [facility] Other 07-21-2022 History of Present illness Narrative* Autumn Vang, Research Coordinator - 02/23/2022 11:20 AM EDTSummary: Study Enrollment Check List Study Enrollment Check List Super Responder Individuals 18 years of age or older - YES Diagnosed with migraine with or without aura - YES Treatment of CGRP MAB for at least 6 months - YES Has had a 75% or greater reduction in migraine headache days a month - YES Failed one or more CGRP MAB - NO Non Responder Individuals 18 years of age or older. - YES Diagnosed with migraine with or without aura - YES Treatment of CGRP MAB for at least 3 months - YES Had had a 25% or less reduction in migraine headaches days a month - NO Patient has met the full inclusion criteria as a super-responder. Patient is eligible for enrollment in the Genetic-Based Precision Medicine in Migraine Treatment Study, IRB #21-955. Autumn Vang Research Branch Operations Manager [facility] Miscellaneous Notes* Telephone Encounter - Sharon Osborne - 02/09/2022 10:30 AM EDT Images from the original note were not included. * Telephone Encounter - Robyn Mauricio RN - 02/08/2022 8:06 AM EDT PA submitted via covermymeds. JENNIFER ALEJANDRO (Rios: [id number]) Rx #: [id number] Aimovig 70MG/ML auto-injectors Form: [employer] Electronic PA Form (2017 NCPDP) Wait for Determination [facility] to return a determination. Robyn Mauricio RN * Telephone Encounter - Sharon Osborne - 02/07/2022 3:14 PM EDT Images from the original note were not included. Received faxed notification from [employer] stating PA needed on Aimovig 70mg. [facility] History of Present illness Narrative* Kathrin Zeng MD - 02/07/2022 11:00 AM EDT Images from the original note were not included. Division of Headache VIRTUAL Outpatient Headache Clinic - Follow up Evaluation Neurology was asked by to evaluate Jennifer Alejandro, a 47 year old female for an opinion regarding headache/face pain. My final recommendations will be communicated back to the requesting physician by way of shared medical record or letter via [place] mail. Previous records (physician notes, laboratory reports, and radiology reports) and imaging studies were reviewed and summarized. Follow-up is expected to be with the referring physician. Patient's headache clinic evaluation was scheduled as a virtual visit using the following platform:Zoom Jennifer Alejandro was identified by name and and consented to the video evaluation and its limitations. Based on this evaluation it may be necessary for them to schedule a follow up evaluation with me or other neurologists for formal physical examination and if necessary,other studies. Reason for Evaluation: Migraine SUBJECTIVE: Brief HPI: Headache 1 This is the current headache. Diagnosis: Chronic Migraine Headache (CM) Location: retro-orbital, holcephalic and right Quality/Description: throbbing, pressure and sharp Associated Symptoms: Photophobia: yes Phonophobia: no Nausea: yes - relates to other, ongoing GI symptoms Vomiting: no Other symptoms: none Worse with activity: yes - exercise, head movements Number of migraine headache days/month: 5 Migraine headache severity: 7/10 Number of NON-migraine headache days/month: 30 Non-migraine headache severity: 2 Number of headache free days/month: -5 Current preventive treatment: Denies Current abortive treatment: Maxalt Triggers: exertion/exercise Onset of headache to peak: gradual Relieving factors: Putting pressure on head Positional changes: yes Most common time of day for headache to begin: upon awakening Prodrome: none Aura: floaters Red flags: progressive worsening despite treatment Allodynia: no Days missed from work or school in the last month: 0 days Headache status since the last visit: worse Lifestyle: Sleep: 8 hours; no recent changes Diet: no change Exercise: no change Interval History: We last saw Jennifer Alejandro 6 months ago, at which time she was treated with aimovig, which she reports completely resolved her symptoms. Since then she reports she was doing well, but that her symptoms started to gradually return 2 months ago. She reports taking ibuprofen as needed without significant relief and Maxalt as needed with significant improvement to her symptoms. She reports she's concerned she's having to increase the frequency she's taking Maxalt and is interested in receiving aimovig as 6 months ago to relieve her symptoms. Of note, she reports she is planning to have either an ablation or hysterectomy in the next few months, which may help her menstrual migraines. *Prior to aimovig - 30 migraines per month With aimovig 4 migraines per month Took aimovig for 6 months Prior Therapies Duration of Use Dose Side effect Analgesic Indomethacin (Indocin) Cafergot Anti-Convulsant Topiramate (Topamax, Trokendi XL, Qudexy) Zonisamide (Zonegram) Anti-Depressant and Antipsychotic Amitriptyline (Elavil) Anti-Migraine Frovatriptan (Frova) Naratriptan (Amerge) Rizatriptan (Maxalt) Sumatriptan (Imitrex, Sumavel) Blood Pressure Propranolol (Inderal) MABs Erenumab (Aimovig) GEPANTS Rimegepant (Nurtec) Supplements CoQ10 Magnesium OUTPATIENT MEDICATIONS Current Outpatient Medications Medication Sig erenumab-aooe (AIMOVIG AUTOINJECTOR) 70 mg/mL auto-injector Inject 1 mL subcutaneously once every month. urea (CARMOL) 40 % APPLY TO FEET TWICE A DAY NEEDED propranolol (INDERAL) 40 mg tablet Take 1 tablet by mouth once daily. cholecalciferol, Vitamin D3, (VITAMIN D3) 1,250 mcg (50,000 unit) cap capsule Take 50,000 Units by mouth one time a week. aspirin, enteric coated (ECOTRIN LOW STRENGTH) 81 mg EC tablet Take 1 tablet by mouth once daily. Magnesium Oxide 500 mg tab Take by mouth. Take one(1) tablet daily at bedtime. (Patient not taking:Reported on 10/19/2021 ) GIANVI, 28, 3-0.02 mg per tablet TAKE 1 TABLET ONCE A DAY- ACTIVE PILLS ONLY- CONTINUOUS USE rizatriptan (MAXALT ICE PULLER) 10 mg disintegrating tablet rizatriptan 10 mg disintegrating tablet Take 1 tablet as needed by oral route for 9 days. No current facility-administered medications for this visit. ALLERGIES ALLERGIES Allergen Reactions Sulfamethoxazole-Tr* Rash LABS/DATA: Vitamin D 25 Hydroxy (ng/mL) Date Value 10/07/2020 44.3 ] TSH Date Value Ref Range Status 10/07/2020 1.700 0.270 - 4.200 uU/mL Final Comment: If the patient is , TSH reference range varies by gestational period: First Trimester (weeks 9-12): 0.180-2.990 mcIU/mL Second Trimester: 0.110-3.980 mcIU/mL Third Trimester: 0.480-4.710 mcIU/mL Sky Pandey et al. A Practical Approach for the Verifications and Determination of Site- and Trimester-Specific Reference Intervals for Thyroid Function tests in . Thyroid, 2019:29:3:412-420. Silverio Coronado et al. 2017 Guidelines of the [place] [employer] for the Diagnosis and Management of Thyroid Disease during and the . Thyroid, 2017:27:3:315-389. HEADACHE SCORES: Headache Questions 01/25/2021 08/12/2021 02/06/2022 ID Migraine Screener: - - - ER visits in the last year: - - - ER visits since last office visit: - 0 0 Hospital stays in the last year: - - - Hospital stays since last office visit - 0 0 Limited ADLs in the last month: - 0 2 Days missed from work or school in the last month: 0 0 0 Days headache pain free in the last month: - 26 6 Days per month with ALL of the following symptoms - decreased productivity, light sensitivity and nausea: - 2 5 Initial improvement of headache after botox injection at last visit: - Not applicable, I did not have a botox injection at my last visit Not applicable, I did not have a botox injection at my last visit PRN medication usage in the last month: - 2 15 Patient impression of improvement since last visit: Much improved Much improved Much worse HIT-6 01/04/2021 08/12/2021 02/06/2022 HIT-6 65 (Severe impact) 55 (Moderate impact) 65 (Severe impact) ADRIEN - 2/7 SCORES 01/04/2021 08/12/2021 02/06/2022 ADRIEN-2 Score 1 0 2 Migraine Specific QOL - Higher scores indicate better HRQL 01/04/2021 08/12/2021 02/06/2022 Role Function-Restrictive Transformed Score (range: 0-100) 40 80 45.71 Role Function-Preventive Transformed Score (range: 0-100) 90 100 90 Emotional Function Transformed Score (range: 0-100) 6.66 100 0 PHQ-9 01/04/2021 08/12/2021 02/06/2022 Score 10 1 19 IMPRESSION: Jennifer Alejandro is a 47 year old year old female, with a history of chronic migraine - super-responder to aimovig. However, stopped treatment and had recurrence of near daily migraine. Would like to restart aimovig Her neurological examination is essentially normal at this visit. ICHD-3 Diagnosis: Chronic Migraine Headache (CM) We will get a precert for Calcitonin Gene Related Peptide Monoclonal Antibody, Erenumab. This patient meets AHS criteria for treatment with CGRP MAB, She has Chronic Migraine Headache (CM), Chronic Migraine without aura, without mention of intractable migraine without mention of status migrainosus which occurs at least 15 days per month for at least 4 hours per day. The FDA has approved CGRP MAB for prevention of migraine. Specifically, the patient has 30 migraines per month, lasting 4 or more hours/d associated with photophobia, phonophobia, nausea for three or more months. Medication overuse headache has been ruled out. Patient is not currently taking a Gepant for acute treatment of her migraine. The following preventative medications have been tried for 3 or more months without benefit or discontinued due and/or side effects. Anti-Convulsant Topiramate (Topamax, Trokendi XL, Qudexy) Zonisamide (Zonegram) Anti-Depressant and Antipsychotic Amitriptyline (Elavil) Blood Pressure Propranolol (Inderal) MABs Erenumab (Aimovig) Supplements CoQ10 Magnesium The following abortive medications have been tried but require high frequency use which can lead toMedication Overuse Headache: Analgesic Indomethacin (Indocin) Cafergot Anti-Migraine Frovatriptan (Frova) Naratriptan (Amerge) Rizatriptan (Maxalt) Sumatriptan (Imitrex, Sumavel) GEPANTS Rimegepant (Nurtec) PLAN: HEADACHE MANAGEMENT: (You are the primary guardian of your health and headache. Keep track of all medications: This includes the reason for use, side effects and benefits.) MEDICATION TREATMENT: Medications to Start Taking erenumab-aooe (AIMOVIG AUTOINJECTOR) 70 mg/mL auto-injector Inject 1 mL subcutaneously once every month. Headache education was done. Discussed lifestyle modification including increased oral hydration, decreased caffeine, exercise and stress management. Discussed treatment options including preventive and acute medications, natural supplements, and infusion therapy. Discussed medication overuse headache and to limit use of acute treatments to no more than 2 days/week or 10 days/month. Discussed medication side effects, adverse reactions and drug interactions. Written educational materials and patient instructions outlining all of the above were given. RESEARCH: Genetic Predictor of Migrane Treatment Follow-up: PRN NON-MEDICATION TREATMENT: Migraine Lifestyle: As always please remember the importance of preventative lifestyle changes for prevention of migraine such as a healthy diet, not skipping meals, moderate aerobic exercise (intensity level high enough to raise heart rate and break a sweat, able to talk but not sing the words to a song) 30 minutes per day 3-5 days per week times per week as tolerated, good sleep hygiene, staying well-hydrated with 3-4 Liters (96-128 ounces) of water per day, and identification of migraine triggers. Yoga, massage, and acupuncture are also beneficial for migraine. Greater than 50% of a 10 minute visit were spent in counselling and coordination of care, as well as answering specific patient questions. Kathrin Zeng MD ELECTRONICALLY SIGNED Adult Neurology/ Board Certified Headache Medicine/ Board Certified Staff, Division of [facility] [address]/ [place] [address] Appt: 1. This office note may have been dictated and may contain minor typographic errors that escaped review 2. The nursing staff and medical assistants are a major part of YOUR TREATMENT TEAM and will be handling your phone calls and inquiries, if any. Unless explicitly told otherwise at the time of your office visit, your study results and ensuing treatment plans will be discussed during your follow-up appointment. If you do not have a follow-up appointment and wish to discuss any issues directly withme, please feel free to obtain one. 3. It is my practice to not fill disability or any other insurance or litigation-related forms/documention. All of the office notes, study results, and other pertinent documentation generated as partof your evaluation will be available to you and to your Primary Care Physician (PCP). Use of this material to complete such forms will be at the discretion of your PCP/referring physician. The patient has my contact information. Educational material and after visit summary discussed. No referring provider defined for this encounter. PCP: [facility] of Past illness Narrative* Problem Noted Date Resolved Date 4.7 Hemicrania continua [339.41] 09/13/2010 09/13/2010 documented as of this encounter (statuses as of 02/07/2022) [facility] of Past illness Narrative* Problem Noted Date Resolved Date 4.7 Hemicrania continua [339.41] 09/13/2010 09/13/2010 documented as of this encounter (statuses as of 02/09/2022) [facility] of Past illness Narrative* Problem Noted Date Resolved Date 4.7 Hemicrania continua [339.41] 09/13/2010 09/13/2010 documented as of this encounter (statuses as of 02/23/2022) [facility] of [facility] illness Narrative* Problem Noted Date Diagnosed Date Resolved Date 4.7 Hemicrania continua [339.41] 09/13/2010 09/13/2010 documented as of this encounter (statuses as of 03/26/2023) [facility] of [facility] illness Narrative* Problem Noted Date Diagnosed Date Resolved Date 4.7 Hemicrania continua [339.41] 09/13/2010 09/13/2010 documented as of this encounter (statuses as of 04/28/2023) [facility] of [facility] illness Narrative* Problem Noted Date Diagnosed Date Resolved Date 4.7 Hemicrania continua [339.41] 09/13/2010 09/13/2010 documented as of this encounter (statuses as of 04/28/2023) [facility] Narrative* Problem Noted Date Diagnosed Date Resolved Date 4.7 Hemicrania continua [339.41] 09/13/2010 09/13/2010 documented as of this encounter (statuses as of 04/28/2023) [facility] Narrative* Problem Noted Date Diagnosed Date Resolved Date 4.7 Hemicrania continua [339.41] 09/13/2010 09/13/2010 documented as of this encounter (statuses as of 07/17/2023) [facility] Diagnosis Chronic migraine without aura, with intractable migraine, so stated, with status migrainosus documented [facility] this [facility] noteNo assessment information availableSt. [facility] Work Phone: Evaluation noteNo InformationNort Property [place] Other Evaluation note* Diagnosis H/O partial nephrectomy Personal history of surgery to other organs documented in this encounter [facility] note* Diagnosis Encounter for follow-up surveillance of kidney cancer- Primary Unspecified follow-up examination History of renal cell carcinoma H/O partial nephrectomy Personal history of surgery to other organs [facility] H/O partial nephrectomy Personal history of surgery to other organs [facility] Diagnosis APPOINTMENT CANCELLED- Primary documented in this encounter [facility] general Narrative - Reported* Type Description Date Medical History high testosterone Medical History PFO hole in heart 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 Medical History kidney stone hx Medical History hx kidney cancer Medical History migraine headache Medical History Gestational diabetes - yes Medical History Hysterectomy Medical History gallstones Medical History Fatty Liver Medical History Migraines Medical History low potasium Medical History chronic nausea Medical History Borderlone sleep apnea Surgical History , 2 Surgical History Tubal Ligation Surgical History Bone Marrow Seymour Surgical History T & A Surgical History Heart Cath Surgical History partial nephrectomy Surgical History hysterectomy Hospitalization History see surgical hx Hospitalization History see above [place] Other Summary Purpose Family History No Family History Records Found Relationship Condition Age at Onset Recorded Date/T [place] Not Specified Malignant neoplasm of uterus Unknown Diabetes mellitus Unknown brother Leukemia Unknown Relationship Condition Age at Onset Recorded Date/T [place] Not Specified Malignant neoplasm of uterus Unknown Diabetes mellitus Unknown brother Leukemia Unknown brother Unknown Leukemia Unknown Malignant neoplasm Unknown Not Specified Diabetes mellitus Unknown Malignant neoplasm of uterus Unknown Advance Directives No Advanced Directives Records FoundDocuments on File Type Date Recorded 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 Advance Directive(s) 08/22/2018 2:19 PM Advance Directive(s) 09/21/2010 12:00 AM Advance Directive(s) 09/21/2006 12:00 AM Advance Directive Response Recorded Date/ Time Advance Directives No March 09, 020 11:09am Documents on File Type Date Recorded 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 Advance Directive(s) 09/21/2010 Advance Directive(s) 09/21/2006 Documents on File Type Date Recorded 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 Advance Directive(s) 09/21/2010 Advance Directive(s) 09/21/2006 Chief Complaint and Reason for Visit Chief Complaint Menorrhagia, Dysmeno rrhea, Enlarged Uterus, Uterin Chief Complaint exercise Obesity Chief Complaint R11.0 Reason for Referral Specialty Diagnoses / Procedures Referred By Darcie meraz Referred To Contact MR IMAGING Diagnoses H/O partial nephrectomy Procedures MRI ABDOMEN WO/W IVCON MRI ABDOMEN W/O & W/CONTRAST MATERIAL Tanisha Alvarez APRN.ADMINISTRATIVE OFFICE ASSISTANT [address] [id number] [facility] [place] [address] Referral ID Status Reason Start Date Expiration Date V isits Requested Visits Authorized [id number] Closed Auto-Generate d Referral 05/12/2022 06/11/2023 1 1 Specialty Diagnoses / Procedures Referred By Darcie meraz Referred To Contact MR IMAGING Diagnoses History of renal cell carcinoma Procedures MRI ABDOMEN WO/W IVCON MRI ABDOMEN W/O & W/CONTRAST MATERIAL Tanisha Alvarez APRN.ADMINISTRATIVE OFFICE ASSISTANT [address] [id number] [facility] [place] [address] Referral ID Status Reason Start Date Expiration Date Visits Requested Visits Authorized [id number] Pending Review Auto-Generat ed Referral 04/27/2023 05/26/2024 1 1 Additional Source Comments INFORMATION SOURCE (unrecogn ized section and content) DATE CREATED AUTHOR 01/30/2018 [place] DATE CREATED AUTHOR AUTHOR'S ORGANIZ ATION 07/20/2018 [facility] DATE CREATED AUTHOR AUTHOR'S ORGANIZ ATION 10/11/2018 [facility] DATE CREATED AUTHOR AUTHOR'S ORGANIZ ATION 01/07/2022 [facility] Special[facility] DATE CREATED AUTHOR AUTHOR'S ORGANIZ ATION 08/16/2022 [facility] DATE CREATED AUTHOR AUTHOR'S ORGANIZ ATION 07/18/2023 [facility] DATE CREATED AUTHOR AUTHOR'S ORGANIZ ATION 12/23/2023 [facility] DATE CREATED AUTHOR AUTHOR'S ORGANIZ ATION 01/10/2024 [facility] Specialists EPIC Source Comments (unrecognize d section and content) In the event this informatio n is protected by the Federal Confidentiality of Alcohol and Drug Abuse Patient Records regulations: The Federal rules restrict any use of the information to criminally investigate or prosecute any alcohol or drug abuse patient.[facility] the event this information is protected by the Federal Confidentiality of Alcohol and Drug Abuse Patient Records regulations: The Federal rules restrict any use of the information to criminally investigate or prosecute any alcohol or drug abuse patient.[facility] the event this information is protected by the Federal Confidentiality of Alcohol and Drug Abuse Patient Records regulations: The Federal rules restrict any use of the information to criminally investigate or prosecute any alcohol or drug abuse patient.[facility] the event this information is protected by the Federal Confidentiality of Alcohol and Drug Abuse Patient Records regulations: The Federal rules restrict any use of the information to criminally investigate or prosecute any alcohol or drug abuse patient.[facility] the event this information is protected by the Federal Confidentiality of Alcohol and Drug Abuse Patient Records regulations: The Federal rules restrict any use of the information to criminally investigate or prosecute any alcohol or drug abuse patient.[facility] the event this information is protected by the Federal Confidentiality of Alcohol and Drug Abuse Patient Records regulations: The Federal rules restrict any use of the information to criminally investigate or prosecute any alcohol or drug abuse patient.[facility] the event this information is protected by the Federal Confidentiality of Alcohol and Drug Abuse Patient Records regulations: The Federal rules restrict any use of the information to criminally investigate or prosecute any alcohol or drug abuse patient.[facility] the event this information is protected by the Federal Confidentiality of Alcohol and Drug Abuse Patient Records regulations: The Federal rules restrict any use of the information to criminally investigate or prosecute any alcohol or drug abuse patient.[facility] Reason for Visit (unrecogniz ed section and content) Reason Comments Chronic Migraine Reason Comments Insurance Authorization Aimovig 70mg Reason Onset Date Comments Refill Request 03/24/2023 Reason Comments Radio Gen HB6 Reason Comments Follow Up Reason Comments Radiology MRI Specialty Diagnoses / Procedures Referred By Gonzalezac t Referred To Contact MR IMAGING Diagnoses H/O partial nephrectomy Procedures MRI ABDOMEN WO/W IVCON MRI ABDOMEN W/O & W/CONTRAST MATERIAL Tanisha Alvarez APRN.ADMINISTRATIVE OFFICE ASSISTANT [address] [place] [address] Mr Imaging [facility] Referral ID Status Reason Start Date Expiration Date V isits Requested Visits Authorized [id number] Closed Auto-Generate d Referral 05/12/2022 06/11/2023 1 1 Care Teams (unrecognized sec tion and content) Team Status: Active Member Role Status Dates Trae Julian MD Primary Care Provider Active Team Status: Inactive Member Role Status Dates ELDER Jackson Attending Provider Active S tart: December 11, 2023 End: December 11, 2023 Trae Julian MD Primary Care Provider Active St art: December 11, 2023 End: December 11, 2023 Security Trainer Relationship Specialty Start Date End Date Trae Julian MD [address] [place] [id number] PCP - General Internal Medicine 05/28/20 [place] [address] Pediatrics 09/27/20 Trae Julian MD [address] [place] [id number] Internal Medicine 09/27/20 Security Trainer Relationship Specialty Start Date End Date Trae Julian MD [address] [place] [id number] PCP - General Internal Medicine 05/28/20 [place] [address] Pediatrics 09/27/20 Trae Julian MD [address] [place] [address] Internal Medicine 09/27/20 Team Status: Inactive Member Role Status Dates Trae Julian MD Primary Care Provider Active Zane Mantilla DO Attending Provider Active Team Status: Active Member Role Status Dates Trae Julian MD Primary Care Provider Active Gualberto Jacobsen MD Attending Provider Active Team Status: Inactive Member Role Status Dates Trae Julian MD Primary Care Provider Active Gulaberto Jacobsen MD Attending Provider Active Security Trainer Relationship Specialty Start Date End Date Trae Julian MD [address] [place] [address] PCP - General Internal Medicine 05/28/20 [place] [address] Pediatrics 09/27/20 Trae Julian MD [address] [place] [address] Internal Medicine 09/27/20 Security Trainer Relationship Specialty Start Date End Date Trae Julian MD [address] [place] [address] PCP - General Internal Medicine 05/28/20 [place] [address] Pediatrics 09/27/20 Trae Julian MD [address] [place] [address] Internal Medicine 09/27/20 Security Trainer Relationship Specialty Start Date End Date Trae Julian MD [address] [place] [address] PCP - General Internal Medicine 05/28/20 [place] [address] Pediatrics 09/27/20 Trae Julian MD [address] [place] [address] Internal Medicine 09/27/20 Security Trainer Relationship Specialty Start Date End Date Trae Julian MD [address] [place] [address] PCP - General Internal Medicine 05/28/20 [place] [address] Pediatrics 09/27/20 Trae Julian MD [address] [place] [address] Internal Medicine 09/27/20 Security Trainer Relationship Specialty Start Date End Date Trae Julian MD [address] [place] [address] PCP - General Internal Medicine 05/28/20 [place] [address] Pediatrics 09/27/20 Trae Julian MD [address] [place] [address] Internal Medicine 09/27/20 Goals (unrecognized section and content) Goals may be documented in a n alternate sectionNo InformationNo InformationNo InformationNo InformationNo InformationNo InformationNo InformationGoals may be documented in an alternate sectionGoals may be documented in an alternate sectionGoals may be documented in an alternate section FOR RECORDS PERTAINING TO PATIENTS WHO ARE OR HAVE BEEN ENROLLED IN A CHEMICAL DEPENDENCY/SUBSTANCEABUSE PROGRAM, SOME INFORMATION MAY BE OMITTED. This clinical summary was aggregated from multiple sources. Caution should be exercised in using it in the provision of clinical care. This summary normalizes information from multiple sources, and as a consequence, information in this document may materially change the coding, format and clinical context of patient data. In addition, data may be omitted in some cases. CLINICAL DECISIONS SHOULD BE BASED ON THE PRIMARY CLINICAL RECORDS. [facility] [employer] [facility]. provides no warranty or guarantee of the accuracy or completeness of information in this document.
[2024-01-12 10:19] LABS: Basophils Absolute Auto 0.1 10^3/uL (0.0-0.1); Basophils Percent Auto 0.8 % (0.2-2.0); Eosinophils Absolute Auto 0.2 10^3/uL (0.0-0.7); Eosinophils Percent Auto 2.8 % (0.9-7.0); Hematocrit 40.6 % (36.0-48.0); Hemoglobin 13.8 g/dL (12.0-16.0); Immature Granulocytes Abs Auto 0.02 10^3/uL (0.00-0.03); Immature Granulocytes Pct Auto 0.3 % (0.0-0.5); Lymphocytes Absolute Auto 2.4 10^3/uL (1.2-3.8); Lymphocytes Percent Auto 33.4 % (20.5-60.0); Mean Corpuscular Hemoglobin 29.5 pg (26.7-34.0); Mean Corpuscular Volume 86.8 fL (81.0-99.0); Mean Platelet Volume 10.5 fL (9.5-13.5); Monocytes Absolute Auto 0.6 10^3/uL (0.3-0.8); Monocytes Percent Auto 7.9 % (1.7-12.0); Neutrophils Percent Auto 54.8 % (43.0-75.0); Platelet Count 280 10^3/uL (150-450); Red Blood Count 4.68 10^6/uL (4.20-5.40); Red Cell Distribution Width 13.1 % (11.0-15.0); White Blood Count 7.2 10^3/uL (4.0-11.0)
[2024-01-12 11:54] LABS: Alanine Aminotransferase 52 U/L (14-59); Albumin Globulin Ratio 1.1; Albumin Level 3.6 g/dL (3.4-5.0); Alkaline Phosphatase 65 U/L (46-116); Anion Gap 11.7; Aspartate Amino Transferase 21 U/L (15-37); BUN Creatinine Ratio 16.9; Bilirubin Total 0.9 mg/dL (0.2-1.0); Calcium 8.6 mg/dL (8.5-10.1); Carbon Dioxide 29.8 mmol/L (21.0-32.0); Chloride 107 mmol/L (98-107); Chol HDL Ratio 2.8; Cholesterol 159 mg/dL (<=200); Estimated GFR (African America >60 (>=60); Estimated GFR (Non-African Ame >60 (>=60); Globulin 3.3 g/dL; Glucose 105 mg/dL (74-106); HDL Cholesterol 56 mg/dL (40-60); Potassium 3.5 mmol/L (3.5-5.1); Sodium 145 mmol/L (136-145); Total Protein 6.9 g/dL (6.4-8.2); Triglycerides 45 mg/dL (<=150)
== END 2024-01-12 08:56 | disposition home or self-care (01) ==
LOC: LAB 08:59
PROVIDERS: PCP Internal Medicine; Visit Provider Internal Medicine
DX: Z00.00 Encounter for general adult medical examination without abnormal findings (principal); Z85.528 Personal history of other malignant neoplasm of kidney; D57.3 Sickle-cell trait; E55.9 Vitamin D deficiency, unspecified
CPT/HCPCS: 36415; 80053; 80061; 82306; 85025

== ENCOUNTER 2024-04-21 12:58 | Outpatient (OUT) | payer OTHER, SELFPAY ==
--- NOTE | 2024-04-21 13:04 | XR_ITS ---
The [address] [address] Patient Name: LUCRECIA LAWTON MRN: [id number] date: 1975 Sex: F Assigned Patient Location: [facility] Current Patient Location: [facility] Accession/Order Number: [id number] Exam Date: 04/21/2024 13:12 Report Date: 04/21/2024 18:30 At the request of: TRAE JULIAN Procedure: XR chest 2V EXAM: XR chest 2V HISTORY: Acute cough COMPARISON: 07/19/2022 TECHNIQUE: Upright PA and lateral chest x-ray FINDINGS: The heart is not enlarged and the vasculature is not distended. No acute infiltrate, effusion or pneumothorax is identified. The osseous structures are grossly intact. XR/XR chest 2V IMPRESSION: No acute infiltrate or evidence of cardiac decompensation. The overall appearance of the chest is essentially unchanged. Electronically authenticated by: MARÍA SABILLON Date: 04/21/2024 18:30
--- OUTSIDE RECORDS SUMMARY | 2024-04-21 13:21 | XMS_ITS | CCD ---
Author Organization [facility] Care Team Providers Care Defense Travel Administrator Name Role Phone PHYSICIAN, DEFAULT Unavailable Unavailable PHYSICIAN, DEFAULT Unavailable Unavailable CICI MURPHY Unavailable Unavailable ELVIRA WHIPPLE Unavailable Unavailable BRANDI, DWAINE Rangel Unavailable Unavailable Iesha LE, Trae Taylor Primary Care Provider Trae Boston Unavailable [phone] Trae Julian MD Unavailable [phone] MD Trae Julian Primary Care Provider [phone] DO Zane Mantilla Attending Provider IESHA, DR LARKIN Admitting Unavailable IESHA, DR LARKIN Attending Unavailable IESHA, DR LARKIN Referring Unavailable HILL, DR LARKIN Primary Care Unavailable IESHA, DR LARKIN Consulting Unavailable IESHA, DR LARKIN Primary Care Unavailable GARTH, MYNOR Admitting Unavailable GARTH, MYNOR Attending Unavailable RANDY, DR ALEXANDRA Colin Consulting Unavailable DAMON, DR ADAIR Consulting Unavailable GARTH, MYNOR Consulting Unavailable CORBY, MIGNON Consulting Unavailable VISCI, DR DEGROOT Admitting Unavailable VISCI, DR DEGROOT Attending Unavailable IESHA, DR LARKIN Primary Care Unavailable PITTSBURGH, DR NAKIA Acharya Consulting Unavailable VISCI, DR DEGROOT Consulting Unavailable IESHA, DR LARKIN Admitting Unavailable HILL, DR LARKIN Attending Unavailable IESHA, DR LARKIN Primary Care Unavailable NEFMARÍA KIM Consulting Unavailable IESHA, DR LARKIN Consulting Unavailable VISCI, DR DEGROOT Admitting Unavailable VISCI, DR DEGROOT Attending Unavailable IESHA, DR LARKIN Primary Care Unavailable VISCI, DR DEGROOT Consulting Unavailable Luli Rodriguez Unavailable Gualberto Jacobsen Unavailable MD Trae Julian Primary Care Provider MD Gualberto Jacobsen Attending Provider [phone] Trae Julian MD Primary Care Provider [phone] DarvinTrae Dave Unavailable Trae Julian MD Unavailable ELDER Reed Attending Provider MD Trae Julian Primary Care Provider Radha Reed Admitting Unavailable Frederick, Radha Attending Unavailable Trae Julian Primary Care Unavailable Trae Julian MD Primary Care Provider TRAE KRAMER Attending Unavailable TRAE KRAMER Referring Unavailable IESHA, TRAE TAYLOR Primary Care Unavailable IESHA, TRAE TAYLOR Primary Care Unavailable WARMINSKI, TANISHA Referring Unavailable HILL, TRAE TAYLOR Primary Care Unavailable WARMINSKI, TANISHA Referring Unavailable HILL, TRAE TAYLOR Primary Care Unavailable WARMINSKI, TANISHA Referring Unavailable Iesha, Trae Jose Primary Care Physician Unavailab PAUL Hadley Attending Unavailvicente e TRAE JULIAN Attending Unavailable TRAE JULIAN Referring Unavailable MAHNAZ FORDE Attending Unavailable RADAH REED Referring Unavailable TRAE JULIAN Referring Unavailable ARSENIO GOODE Attending Unavailable Allergies Allergy Classification Reported Allergen(s) Allergy Type Date of Onset Reaction(s) Facility (1 source) 54821,00 Drug allergy (disorder) 06-16-20 09 [facility] Repository (14 sources) Sulfamethoxazole / Trimethoprim; Translations: [SULFAMETHOXAZOLE-T RIMETHOPRIM] Drug Allergy 07-18-20 18 [facility] (4 sources) Sulfonamides (Antibiotic); Translations: [Sulfa (Sulfonamide Antibiotics)] Allergy to substance 04-24-20 22 [facility] (1 source) Sulfonamides (Antibiotic) Drug allergy (disorder) 08-06-[address] [facility] Repository (2 sources) Sulfonamides (Antibiotic); Translations: [sulfa drugs] Propensity to adverse reactions to drug Eruption of skin (disorder) [facility] (1 source) No Known Medication Allergies; Translations: [No Known Medication Allergies] Propensity to adverse reactions (disorder) [facility] Repository Medications Current Medications Medication Drug Class(es) Dates Sig (Normalized) Sig (Original) aspirin 81 mg delayed release oral tablet (13 sources) Platelet Aggregation Inhibitor, Nonsteroidal Anti-inflammatory Drug Start: 09-03-2018 take 1 tablet by mouth once daily aspirin, enteric coated (ECOTRIN LOW STRENGTH) 81 mg EC tablet Take 1 tablet by mouth once daily. 0 09/03/2018 Active Comment on above: Take 1 tablet by [facility] once daily. cholecalciferol 1.25 mg oral capsule (13 sources) Vitamin D take 1 capsule by mouth every week cholecalciferol, Vitamin D3, (VITAMIN D3) 1,250 mcg (50,000 unit) cap capsule Take 50,000 Units by mouth one time a week. 0 Active Comment on above: Take 50,000 Units by mouth one time a week. doxycycline hyclate 100 mg oral capsule (1 source) Tetracycline-class Drug Start: 04-12-2024 take 1 capsule by mouth twice daily doxycycline hyclate 100 mg Cap 100 mg = 1 cap(s), Oral, BID, # 14 cap(s), Refills(s) 0, Pharmacy: [facility]/pharmacy #[id number], 160, cm, 04/12/24 14:24:00 EDT, Height/Length Dosing, 96.7, kg, 04/12/24 14:24:00 EDT, Weight Dosing Start Date: 04/12/24 Status: Ordered 1 ml erenumab-aooe 70 mg/ml auto-injector (20 sources) Start: 02-07-2022 inject 1 mL by subcutaneous injection every month erenumab-aooe (AIMOVIG AUTOINJECTOR) 70 mg/mL auto-injector Inject 1 mL subcutaneously once every month. 3 Pen 3 02/07/2022 Active Comment on above: Inject 1 mL subcutan [...] in the MR contrast administration guidelines link. propranolol hydrochloride 40 mg oral tablet (13 sources) beta-Adrenergic Rosaura Start: 01-28-2021 take 1 tablet by mouth once daily propranolol (INDERAL) 40 mg tablet Take 1 tablet by mouth once daily. 20 tablet 3 01/28/2021 Active Comment on above: Take 1 tablet by justin th once daily. rizatriptan 10 mg disintegrating oral tablet (20 sources) Serotonin-1b and Serotonin-1d Receptor Agonist Start: 05-23-2017 rizatriptan (MAXALT MARKING STITCHER) 10 mg disintegrating tablet rizatriptan 10 mg disintegrating tablet Take 1 tablet as needed by oral route for 9 days. 0 05/23/2017 Active Maxalt 10 MG 1 t ablet orally prn Active Comment on above: rizatriptan 10 mg di sintegrating tablet Take 1 tablet as needed by oral route for 9 days. traMADol hydrochloride 50 mg oral tablet (3 sources) Opioid Agonist Start: 2 take 50 mg by mouth every six hours Tramadol Active 50 MG PO Q6H 8 2 July 27, 2022 1:00am Zofran ODT 4 mg Tab-Dis (1 source) Start: 8 take 1 tablet by mouth three times daily Zofran ODT 4 mg Tab-Dis 4 mg = 1 tab(s), Oral, TID, # 20 tab(s), Refills(s) 0 Start Date: 06/25/18 Status: Ordered Completed/Discontinued Medications Medication Drug Class(es) Dates Sig (Normalized) Sig (Original) Drospirenone-Ethin yl Estradiol (10 sources) Progestin, Estrogen Start: 12-12-2021 End: 07-27-2022 Drospirenone-Ethinyl Estradiol (Vestura (28)) 3-0.02 mg tablet Discontinued [...] mouth. Take one(1) tablet daily at bedtime. urea 400 mg/ml topical cream (17 sources) Start: 2 End: 2 Urea Discontinued [...] calculi; Translations: [Kidney stone] Onset: 2 Episodic Cardiac and circulatory congenital anomalies (13 sources) Patent foramen ovale; Translations: [Atrial septal [...] aura, intractable, with status migrainosus] Onset: 1 Resolved: 1 Chronic Menstrual disorders (16 sources) Irregular periods; Translations: [Irregular menstruation, unspecified] Onset: 1 05-09-2021 Chronic Nausea and vomiting (8 sources) Nausea; Translations: [Nausea] Onset: 4 Episodic Nonspecific chest pain (1 source) Chest pain, unspecified; Translations: [Chest pain, unspecified] Onset: 8 Episodic Nutritional deficiencies (1 source) Vitamin D deficiency, unspecified; Translations: [VITAMIN D DEFICIENCY UNSPECIFIED] Onset: 2 Chronic Other aftercare (1 source) long-term (current) use of aspirin; Translations: [JAIL CURRENT USE OF ASPIRIN] Onset: 2 Episodic Other aftercare (1 source) Other extermination supervisor (current) drug therapy; Translations: [OTH CLINICAL EDITOR CURRENT DRUG THERAPY] Onset: 2 Episodic Other aftercare (1 source) History of malignant neoplasm of retroperitoneum; Translations: [Encounter for follow-up examination after completed treatment for malignant neoplasm] 04-27-2023 Episodic Other diseases of kidney and ureters (13 sources) Renal mass; Translations: [Other specified disorders [...] disorders (1 source) Hypomagnesemia; Translations: [HYPOMAGNESEMIA] Onset: 2 Chronic Other nutritional; endocrine; and metabolic disorders [...] nutritional; endocrine; and metabolic disorders (1 source) Obese class II; Translations: [Body mass index (BMI) 37.0-37.9, adult] Onset: 4 Chronic Other nutritional; endocrine; and metabolic disorders [...] 04-27-2023 Episodic Residual codes; unclassified (1 source) Patient encounter status; Translations: [Other specified health status] Onset: 4 Episodic Skin and subcutaneous tissue infections (2 sources) Cellulitis; Translations: [Cellulitis, unspecified] Onset: 4 Episodic Unclassified (3 sources) COUGH, UNSPECIFIED; Translations: [COUGH, UNSPECIFIED] Onset: 2 Unclassified (1 source) APPOINTMENT CANCELLED 07-16-2023 Past or Other Problems Problem Classification Problem Date Documented Da te Episodic/Chronic Cancer of kidney and renal pelvis (4 sources) History of malignant neoplasm of kidney; Translations: [Personal history of other malignant neoplasm of kidney] Onset: 04-27-2023 04-27-2023 Episodic Genitourinary symptoms and ill-defined conditions (17 sources) Abnormal urine; Translations: [Unspecified abnormal findings in urine] Onset: 08-01-2018 08-01-2018 Episodic Other aftercare (1 source) Encounter for follow-up examination after completed treatment for malignant neoplasm; Translations: [Encounter for follow-up surveillance of kidney cancer] Onset: 04-27-2023 Episodic Other lower respiratory disease (13 sources) Dyspnea; Translations: [Shortness of breath] Onset: 01-22-2020 01-22-2020 Episodic Other nutritional; endocrine; and metabolic disorders (13 sources) Abnormal weight gain; Translations: [Abnormal weight gain] Onset: 05-09-2021 05-09-2021 Episodic Other screening for suspected conditions (not mental disorders or infectious disease) (4 sources) Encounter for screening mammogram for malignant neoplasm of breast; Translations: [ENC SCR MAMMO MALIG NEOPLASM BREAST] Onset: 11-11-2021 Episodic Residual codes; unclassified (13 sources) Finding related to blood, organ, or tissue donation; Translations: [Unspecified donor, stem cells] Onset: 01-10-2006 01-10-2006 Episodic Residual codes; unclassified (1 source) Family history of malignant neoplasm of other genital organs; Translations: [FAM HX MALIG NEOPLSM OTH GENIT ORGN] Onset: 11-16-2021 Episodic Residual codes; unclassified (1 source) Acquired absence of kidney; Translations: [H/O partial nephrectomy] Onset: 04-27-2023 Episodic Unclassified (1 source) COUGH, UNSPECIFIED; Translations: [COUGH, UNSPECIFIED] Onset: 05-09-2022 Results Test Name Value Interpretation Reference Range Facility Ambulatory Visit Summaryon 0 04-12-2024 Ambulatory Visit Summary Ambulatory Visit Summary JENNIFER ALEJANDRO :1975 Visit Date:04/12/2024 Ambulatory Visit Instructions Your Diagnosis BMI 37.0-37.9, adult Non-smoker Cellulitis Sore throat Your Care Team Attending Physician - CAMILA SHAH Primary Care Physician - Trae Julian PA-C This Is Your Medications List doxycycline (doxycycline hyclate 100 mg Cap) ondansetron (Zofran ODT 4 mg Tab-Dis) Discharge Vitals Temperature (Oral) 36.9 ?C Heart Rate (Peripheral) 74 Blood Pressure 118/62 Height 160 cm Height 63 in Weight 96.7 kg Weight 212.74 lb BMI 37.77 Medications What How Much When Why Instructions New doxycycline (doxycycline hyclate 100 mg Cap) 1 Capsules By Mouth 2 times a day Cellulitis Pickup at [facility]/pharmacy #[id number] Unchanged ondansetron (Zofran ODT 4 mg Tab-Dis) 1 Tablets By Mouth 3 times a day Pharmacy Information [facility]/pharmacy #[id number]: [address], [place] [id number] [phone] Allergies sulfa drugs (Rash) Patient Survey You may receive a survey via text or e-mail asking about your office visit. Please share your experience with us by completing your survey. We appreciate your feedback and thank you for choosing us for your care. 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 She started with a bump under her left buttox a week ago. She then developed some bumps in her right groin. She reports the areas ache, and are a little itchy. She has been using a topical product to the area without resolve. Her strep was negative today. She states her throat hurts and it feels like something is stuck in her throat. Staff HPI reviewed and accurate. Review of Systems PHQ Score Initial Depression Screen Score: 0 SCORE Physical Exam Vitals & Measurements T: 36.9 ?C(Oral) HR: 74(Peripheral) BP: 118/62 SpO2: 98% HT: 63 in HT: 160 cm WT: 96.7 kg WT: 212.74 lb BMI: 37.77 Under left buttock: small, erythematous, slightly raised lesion noted. Right groin: several raised erythematous bumps noted. No drainage or warmth Throat: erythematous, no exudate. Assessment/Plan 1. Cellulitis, (L03.90: Cellulitis, unspecified)Cellulitis Doxy as prescribed FU with PCP Ordered: doxycycline, 100 mg = 1 cap(s), Oral, BID, # 14 cap(s), Refills(s) 0, Pharmacy: [facility]/pharmacy #[id number], 160, cm, 04/12/24 14:24:00 EDT, Height/Length Dosing, 96.7, kg, 04/12/24 14:24:00 EDT, Weight Dosing 2. BMI 37.0-37.9, adult (Z68.37: Body mass index [BMI] 37.0-37.9, adult) Continue to monitor 3. Non-smoker (Z78.9: Other specified health status) stable Sore throat (J02.9: Acute pharyngitis, unspecified) Ordered: Rapid Strep POC 24001 Follow-up No qualifying data available Problem List/Past Medical History Ongoing Cellulitis Historical No qualifying data Medications doxycycline hyclate 100 mg Cap, 100 mg= 1 cap(s), Oral, BID Zofran ODT 4 mg Tab-Dis, 4 mg= 1 tab(s), Oral, TID Allergies sulfa drugs (Rash) Social History Alcohol - Denies Alcohol Use, 06/25/2018 Substance Abuse - Denies Substance Abuse, 06/25/2018 Tobacco - Denies Tobacco Use, 06/25/2018 Never (less than 100 in lifetime) Tobacco Use:. Never Smokeless Tobacco Use:. Cigarettes, Household tobacco concerns: No., 04/12/2024 [facility] Comment on above: Result Comment: Elec tronically Signed By: AC LUZ, CAMILA\.br\Date and Time Signed: 04/12/24 14:54 EDT Tiburcio 03-13-2024 [facility] Telephone (NREUS2) JENNIFER ALEJANDRO ([id number]) 1975 F Date Time Provider Department 03/13/24 JENNIFER NORRIS NREUS2 During your visit today, we recorded the following information about you: Jennifer Norris, Research Coordinator 03/13/2024 2:17 PM Signed Patient was reviewed and referred for research study 90-469 Pain Avoidance Behavior in Migraine Patients by Dr. Pappas. 3rd phone call attempt 03/13/24: called and spoke with patient about research study [id number]. Patient is interested in participating in study and has agreed to schedule for the visit for 04.30.24 Allergies As of Date: 03/13/2024 Noted Allergy Reaction SULFAMETHOXAZOLE-TRIME THOPRIM 07/18/2018 2 - Rash Date Reviewed: 04/27/2023 Reviewed by: Tanisha Alvarez APRN.PARTS SALESMAN - Fully Assessed Reason for Visit: Research [293] Cmt: 24339 Pain Avoidance Behavior in Migraine Patients Prescriptions as of 03/13/2024 - erenumab-aooe (AIMOVIG AUTOINJECTOR) 70 mg/mL auto-injector [...] by mouth once daily. - rizatriptan (MAXALT MARKING STITCHER) 10 mg disintegrating tablet rizatriptan 10 mg disintegrating tablet Take 1 tablet as needed by oral route for 9 days. 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 Pappas. 02/19/2024: called patient unable to leave voicemail. Phone rings busy 02/26/24: called and left voice message Allergies As of Date: 02/19/2024 Noted Allergy Reaction SULFAMETHOXAZOLE-TRIME THOPRIM 07/18/2018 2 - Rash Date Reviewed: 04/27/2023 Reviewed by: Tanisha Alvarez APRN.PARTS SALESMAN - Fully Assessed Prescriptions as of 02/26/2024 - erenumab-aooe (AIMOVIG AUTOINJECTOR) 70 mg/mL auto-injector [...] by mouth once daily. - rizatriptan (MAXALT MARKING STITCHER) 10 mg disintegrating tablet rizatriptan 10 mg disintegrating tablet Take 1 tablet as needed by oral route for 9 days. 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] 01/10/2006 [...] weight gain [R63.5] 05/09/2021 Encounter Status:Closed by JENNIFER NORRIS on 02/19/24 Normal [facility] hepatobiliary w pharmon 0 12-11-2023 [place] hepatobiliary w pharm [facility] Main [place] [address] [place] [address] Nuclear Medicine Report Signed Patient: Jennifer Alejandro MR#: [id number] 12 : 1975 Acct:[id number] Age/Sex: 48 / F ADM Date: 12/11/23 Loc: [place] Room: Type: [facility] Attending Dr: Radha Reed NECK BAND OPERATOR-C Copies to: MALLORY Jackson Jeffrey S DO Ordering Provider: Radha Reed NP Date of Service: 12/11/23 [place] hepatobiliary w pharm: R11.0 Nuclear Medicine Hepatobiliary [...] gallbladder ejection fraction identified with CCK administration. [place] hepatobiliary w pharm IMPRESSION: Patent cystic and common bile duct. Mildly delayed uptake within the gallbladder. No significant ejection of radiotracer from the gallbladder after CCK administration. Consider biliary dyskinesia. Impression dictated by: Car Ram M.D.12/11/2023 1:06 PM Dictation Location: [place] [address] Transcribed By: KEN 12/11/23 1306 Dictated By: Car Ram DO 12/11/23 1303 Signed By: 12/11/23 1306 Normal [facility] Basic metabolic 2000 panelon 04-27-2023 Anion gap [Moles/Vol] 11 mmol/L Normal 9-18 [facility] Comment on above: Order Comment: Speci men Type: BLOOD SPECIMEN Ordering Facility: [facility] Address: [address] [place] [address] Performed By: #### 2 4321-2 #### [facility] CLIA [id number] [address] [place] [address] [place] Calcium [Mass/Vol] 9.2 mg/dL Normal 8.5-10.2 [facility] Comment on above: Order Comment: Speci men Type: BLOOD SPECIMEN Ordering Facility: [facility] Address: [address] [place], [place] [id number] Performed By: #### 2 4321-2 #### [facility] CLIA [id number] [address] [place] [address] [place] Chloride [Moles/Vol] 105 mmol/L Normal 97-105 [facility] Comment on above: Order Comment: Speci men Type: BLOOD SPECIMEN Ordering Facility: [facility] Address: [address] [place], [place] [id number] Performed By: #### 2 4321-2 #### [facility] CLIA [id number] [address] [place] [address] [place] CO2 [Moles/Vol] 26 mmol/L Normal 22-30 [facility] Comment on above: Order Comment: Speci men Type: BLOOD SPECIMEN Ordering Facility: [facility] Address: [address] [place], [place] [id number] Performed By: #### 2 4321-2 #### [facility] CLIA [id number] [address] OF [facility] Creatinine [Mass/Vol] 0.57 mg/dL Low 0.58-0.96 [facility] Comment on above: Order Comment: Angel frazier Type: BLOOD SPECIMEN Ordering Facility: [facility] Address: [address] [place] [address] Performed By: #### 2 4321-2 #### [facility] CLIA [id number] [facility] [address] Creatinine and Glomerular filtration rate.predicted panel (S/P/Bld) 114 mL/min/1.73m??? Normal >=60 [facility] Comment on above: Order Comment: Angel frazier Type: BLOOD SPECIMEN Ordering Facility: [facility] Address: [address] [place] [address] Result Comment: Alie mated Glomerular Filtration Rate [...] GFR. Performed By: #### 2 4321-2 #### [facility] CLIA [id number] [facility] [address] [place] Glucose [Mass/Vol] 99 mg/dL Normal 74-99 [facility] Comment on above: Order Comment: Angel frazier Type: BLOOD SPECIMEN Ordering Facility: [facility] Address: [address] [place] [address] Result Comment: The [place] Diabetes Association (ADA) provides guidance for cutoff [...] Standards of Medical Care in Diabetes 2016, [place] [employer]. Diabetes Care. 2016.39(Suppl 1). Performed By: #### 2 4321-2 #### [facility] CLIA [id number] [address] [place] [address] [place] Potassium [Moles/Vol] 3.8 mmol/L Normal 3.7-5.1 [facility] Comment on above: Order Comment: Angel frazier Type: BLOOD SPECIMEN Ordering Facility: [facility] Address: [address] [place] [address] Performed By: #### 2 4321-2 #### [facility] CLIA [id number] [address] [place] [address] [place] Sodium [Moles/Vol] 142 mmol/L Normal 136-144 [facility] Comment on above: Order Comment: Angel frazier Type: BLOOD SPECIMEN Ordering Facility: [facility] Address: [address] [place] [address] Performed By: #### 2 4321-2 #### [facility] CLIA [id number] [address] [place] [address] [place] Urea nitrogen [Mass/Vol] 7 mg/dL Normal 7-21 [facility] Comment on above: Order Comment: Angel frazier Type: BLOOD SPECIMEN Ordering Facility: [facility] Address: [address] [place] [address] Performed By: #### 2 4321-2 #### [facility] CLIA [id number] [address] [place] [address] [place] CNOVon 04-27-2023 CNOV Office Visit (UROLMN ) JENNIFER ALEJANDRO ([id number]) 1975 F Date Time Provider Department 04/27/23 3:30 PM TRAE KRAMER During your visit today, we recorded the following information about you: Pulse Blood pressure Weight Height 67/minute 119/80 93.8 kg 1.6 m Tanisha Alvarez APRN.PARTS SALESMAN 04/27/2023 9:25 PM Signed Chief Complaint: follow [...] MRI, CXR, and lab results [place] [place] -Pending above, f/u virtual visit in 1 year with MRI abdomen, CXR, and BMP Discussed with Dr. Kramer. Tanisha Alvarez APRN.PARTS SALESMAN Referring Provider: TRAE KRAMER [[id number]] Allergies As of Date: 04/27/2023 Noted Allergy Reaction SULFAMETHOXAZOLE-TRIME THOPRIM 07/18/2018 2 - Rash Date Reviewed: 04/27/2023 Reviewed by: Tanisha Alvarez APRN.PARTS SALESMAN - Fully Assessed Reason for Visit: Follow Up [171] Primary Visit Diagnosis:Encounter for follow-up surveillance of kidney cancer [Z08, Z85.528] Other Visit Diagnoses:History of renal cell carcinoma [Z85.528] H/O partial nephrectomy [Z90.5] Order(s):BASIC METABOLIC PNL [SQBMP] Order #: [id number] FUTURE XR CHEST 2V FRONTAL/LAT [[id number]] Order #: [id number] FUTURE MRI ABDOMEN WO/W IVCON [[id number]] Order #: [id number] FUTURE iv contrast (will be provided with [...] administration dennis (more content not included)... Normal [facility] [facility] MRI ABDOMEN WO/W IVCONon MRI ABDOMEN [...] included: axial precontrast T1 weighted in- and njl-gq-lmsky, axial and coronal HASTE, axial DWI with [...] OR ABDOMINAL METASTASIS. DIFFUSE HEPATIC STEATOSIS. CHOLELITHIASIS [employer]: PSCB Transcribe Date/Time: Apr 27 2023 3:34P Dictated by : TRACIE DAMON MD This examination was interpreted and the report reviewed and electronically signed by: LUIS GONZALEZ MD on Apr 27 2023 5:32PM EST [id number] Normal [facility] URINALYSIS, REFLEX MICROSCOP ICon 04-27-2023 Bilirubin Ql (U) Negative Normal Negative [facility] Comment on above: Order Comment: Speci men Type: URINE SPECIMEN Ordering Facility: [facility] Address: [address] [place] [address] Performed By: #### L [id number] #### [facility] CLIA [id number] [address] [facility] [place] [address] [place] Clarity (Unsp spec) Clear Normal Clear [facility] Comment on above: Order Comment: Speci men Type: URINE SPECIMEN Ordering Facility: [facility] Address: [address] [place] [address] Performed By: #### L [id number] #### [facility] CLIA [id number] [address] [place] [address] [place] Color (U) Colorless Normal Yellow [facility] Comment on above: Order Comment: Speci men Type: URINE SPECIMEN Ordering Facility: [facility] Address: [address] [place] [address] Performed By: #### L [id number] #### [facility] CLIA [id number] [address] [place] [address] [place] Glucose Test strip (U) [Mass/Vol] Negative Normal Trace, Negative [facility] Comment on above: Order Comment: Speci men Type: URINE SPECIMEN Ordering Facility: [facility] Address: [address] Performed By: #### L [id number] #### [facility] CLIA [id number] [address] [place] [address] [place] Hemoglobin Ql (U) Negative Normal Negative, Trace [facility] Comment on above: Order Comment: Speci men Type: URINE SPECIMEN Ordering Facility: [facility] Address: [address] [place] [address] Performed By: #### L [id number] #### [facility] CLIA [id number] [address] [place] [address] [place] Ketones Ql (U) Negative Normal Negative, Trace [facility] Comment on above: Order Comment: Speci men Type: URINE SPECIMEN Ordering Facility: [facility] Address: [address] [place] [address] Performed By: #### L [id number] #### [facility] CLIA [id number] [address] [place] [id number] [place] Leukocyte esterase Test strip Ql (U) Negative Normal Negative, 25 Vincenzo/uL [facility] Comment on above: Order Comment: Speci men Type: URINE SPECIMEN Ordering Facility: [facility] Address: [address] [place], [place] [address] Performed By: #### L [id number] #### [facility] CLIA [id number] [address] [place] [address] [place] Nitrite Ql (U) Negative Normal Negative [facility] Comment on above: Order Comment: Speci men Type: URINE SPECIMEN Ordering Facility: [facility] Address: [address] [place], [place] [address] Performed By: #### L [id number] #### [facility] CLIA [id number] [address] [place] [address] [place] pH (U) 6.5 [pH] Normal 5.0-8.0 [facility] Comment on above: Order Comment: Speci men Type: URINE SPECIMEN Ordering Facility: [facility] Address: [address] [place], [place] [address] Performed By: #### L [id number] #### [facility] CLIA [id number] [address] [place] [address] [place] Protein (U) [Mass/Vol] Negative Normal Trace, Negative [facility] Comment on above: Order Comment: Speci men Type: URINE SPECIMEN Ordering Facility: [facility] Address: [address] [place], [place] [address] Performed By: #### L [id number] #### [facility] CLIA [id number] [address] [place] [address] [place] Specific gravity (U) [Rel density] 1.014 Normal 1.005-1.030 [facility] Comment on above: Order Comment: Speci men Type: URINE SPECIMEN Ordering Facility: [facility] Address: [address] [place], [place] [address] Performed By: #### L [id number] #### [facility] CLIA [id number] [address] [place] [address] [place] Urobilinogen Ql (U) Negative Normal Negative [facility] Comment on above: Order Comment: Speci men Type: URINE SPECIMEN Ordering Facility: [facility] Address: [address] [place] [id number] Performed By: #### L [id number] #### [facility] CLIA [id number] [address] [place] XR CHEST 2V FRONTAL/LATon [...] skeletal structures. IMPRESSION: No acute radiographic abnormality. 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 Normal [facility] Comment on above: Performed By: #### U RCX ####[facility] [address] [place] [address]Dr. Obi Miller UA (CLEAN/CATCH) LOAN SECRETARY/MICRO I F IND.on 08-14-2022 Bilirubin Ql (U) Negative Normal NEGATIVE [facility] Comment on above: Performed By: #### U MICRO, UACSIND ####[facility] [address] [place] [address]Dr. Obi Miller Clarity (U) CLEAR Normal CLEAR [facility] Comment on above: Performed By: #### U MICRO, UACSIND ####[facility] Exjc[address] [place], [place] [address]Dr. Obi Miller Color (U) LT. YELLOW Normal YELLOW [facility] Comment on above: Performed By: #### U MICRO, UACSIND ####[facility] Zix[address]ys[address] [place], [place] [address]Dr. Obi Miller Glucose Ql (U) Negative Normal NEGATIVE [facility] Comment on above: Performed By: #### U MICRO, UACSIND ####[facility] [address] [place], [place] [address]Dr. Obi Miller Hemoglobin Ql (U) TRACE-INTACT Abnormal NEGATIVE [facility] Comment on above: Performed By: #### U MICRO, UACSIND ####[facility] [address] [place], [place] [address]Dr. Obi Miller Ketones Ql (U) Negative Normal NEGATIVE [facility] Comment on above: Performed By: #### U MICRO, UACSIND ####[facility] Igfn[address]qomf[address] [place], [place] [address]Dr. Obi Miller LEUKOCYTES Negative Normal NEGATIVE [facility] Comment on above: Performed By: #### U MICRO, UACSIND ####[facility] Qu[address] [place], [place] [address]Dr. Obi Miller Nitrite Ql (U) Negative Normal NEGATIVE [facility] Comment on above: Performed By: #### U MICRO, UACSIND ####[facility] [address] [place], [place] [address]Dr. Obi Miller pH (U) 6.0 [pH] Normal 5-[address] [facility] Comment on above: Performed By: #### U MICRO, UACSIND ####[facility] [address] [place] [address]Dr. Obi Miller SPEC GRAVITY 1.010 Normal 1.005-<=1.025 [facility] Comment on above: Performed By: #### U MICRO, UACSIND ####[facility] [address] [place] [address]Dr. Obi Miller UA PROTEIN Negative Normal NEGATIVE/ TRACE [facility] Comment on above: Performed By: #### U MICRO, UACSIND ####[facility] [address]uvr[address] [place], [place] [address]Dr. Obi Miller UR MICRO IND INDICATED Normal [facility] Comment on above: Performed By: #### U MICRO, UACSIND ####[facility] [address] [place] [address]Dr. Obi Miller Urobilinogen Qn (U) 0.2 {Pascale'U}/dL Normal 0.2 - 1.[address] [facility] Comment on above: Performed By: #### U MICRO, UACSIND ####[facility] [address] [place], [place] [address]Dr. Obi Miller URINE MICROSCOPIC ONLYon BACTERIA NONE SEEN Normal NONE SEEN [facility] Comment on above: Performed By: #### U MICRO, UACSIND ####[facility] [address]cs[address] [place], [place] [address]Dr. Obi Miller Bacteria identified Cx Nom (U) NOT INDICATED Normal [facility] Comment on above: Performed By: #### U MICRO, UACSIND ####[facility] [address] [place], [place] [address]Dr. Obi Miller CAST NONE SEEN Normal NONE SEEN [facility] Comment on above: Performed By: #### U MICRO, UACSIND ####[facility] [address] [place] [address]Dr. Obi Miller Crystals LM Nom (Urine sed) NONE SEEN Normal NONE SEEN [facility] Comment on above: Performed By: #### U MICRO, UACSIND ####[facility] [address] [place] [address]Dr. Obi Miller Epithelial cells LM Ql (Urine sed) NONE SEEN Normal NONE SEEN /RARE [facility] Comment on above: Performed By: #### U MICRO, UACSIND ####[facility] [address] [place] [address]Dr. Obi Miller MUCOUS NONE SEEN Normal NONE SEEN [facility] Comment on above: Performed By: #### U MICRO, UACSIND ####[facility] [address] [place] [address]Dr. Obi Miller RBC 0-2 Normal 0-[address] [facility] Comment on above: Performed By: #### U MICRO, UACSIND ####[facility] [address] [place] [address]Dr. Obi Miller WBC NONE SEEN Normal NONE SEEN [facility] Comment on above: Performed By: #### U MICRO, UACSIND ####[facility] [address] [place] [address]Dr. Obi Miller CARDIAC JOEL 3-6on 2 CK [Catalytic activity/Vol] 30 U/L Normal 26-[address] [facility] Comment on above: Performed By: #### C MREP ####[facility] [address] [place] [address]Dr. Obi Miller CK.MB [Mass/Vol] ng/mL Normal <=3.[address] [facility] Comment on above: Performed By: #### C MREP ####[facility] [address] [place] [address]Dr. Obi Miller HSTROP 4.6 pg/mL Normal 4.0-51.[address] [facility] Comment on above: Result Comment: CUT- OFF POINTS HAVE BEEN ESTABLISHED BASED ON THE FOURTH UNIVERSAL DEFINITIONS OF MYOCARDIAL INFARCTION. THE UPPER REFERENCE LIMIT (URL) OF TROPONIN, DEFINED THE 99TH PERCENTILE OF cTnI DISTRIBUTION IN A REFERENCE POPULATION, HAS BEEN CONFIRMED THE DECISION THRESHOLD FOR OK DIAGNOSIS. Performed By: #### C MREP ####[facility] [address] [place], [place] [address]Aq. Obi Miller CARDIAC JOEL ADMITon 022 CK [Catalytic activity/Vol] 41 U/L Normal 26-192 [facility] Comment on above: Performed By: #### C MADM, BMP, LIVER ####[facility] [address] [place], [place] [address]VzHailey Miller CK.MB [Mass/Vol] 0.38 ng/mL Normal <=3.[address] [facility] Comment on above: Performed By: #### C MADM, BMP, LIVER ####[facility] [address] [place] [id number]. Obi Miller HSTROP <4.0 Normal 4.0-51.[address] [facility] Comment on above: Result Comment: CUT- OFF POINTS HAVE BEEN ESTABLISHED BASED ON THE FOURTH UNIVERSAL DEFINITIONS OF MYOCARDIAL INFARCTION. THE UPPER REFERENCE LIMIT (URL) OF TROPONIN, DEFINED THE 99TH PERCENTILE OF cTnI DISTRIBUTION IN A REFERENCE POPULATION, HAS BEEN CONFIRMED THE DECISION THRESHOLD FOR OK DIAGNOSIS. Performed By: #### C MADM, BMP, LIVER ####[facility] [address] [place] [id number] Miller YVONNE 25 ng/mL Normal 9-82 [facility] Comment on above: Performed By: #### C MADM, BMP, LIVER ####[facility] [address] [place] [address]DrHailey Miller CBC AUTO DIFFon 07-19-2022 BASO # 0.1 103/ul Normal 0.0-0.1 [facility] Comment on above: Performed By: #### C BC #### [facility] [address] [place] [address] [address] Obi Miller Basophils/100 WBC (Bld) 0.6 % Normal 0.2-2.0 [facility] Comment on above: Performed By: #### C BC #### [facility] [address] [place] [address] [address] Obi Miller EO # 0.1 103/ul Normal 0.0-0.[address] [facility] Comment on above: Performed By: #### C BC #### [facility] [address] [place] [address] Dr. Obi Miller Eosinophils/100 WBC (Bld) 0.8 % Critically low 0.9-7.0 [facility] Comment on above: Performed By: #### C BC #### [facility] [address] [place] [address] Dr. Obi Miller Erythrocyte distribution width (RBC) [Ratio] 12.5 % Normal 11.0-15.0 [facility] Comment on above: Performed By: #### C BC #### [facility] [address] [place] [address] Dr. Obi Miller Hematocrit (Bld) [Volume fraction] 41.7 % Normal 36.0-48.0 [facility] Comment on above: Performed By: #### C BC #### [facility] [address] [place] [address] Dr. Obi Miller Hemoglobin (Bld) [Mass/Vol] 14.9 g/dL Normal 12.0-16.0 [facility] Comment on above: Performed By: #### C BC #### [facility] [address] [place] [address] Dr. Obi Miller IG # 0.00 10e3/ul Normal 0.00-0.03 [facility] Comment on above: Performed By: #### C BC #### [facility] [address] [place] [address] Dr. Obi Miller IG % 0.2 % Normal 0.0-0.[address] [facility] Comment on above: Performed By: #### C BC #### [facility] [address] [place] [address] Dr. Obi Miller LYMPH # 3.0 103/ul Normal 1.2-3.[address] [facility] Comment on above: Performed By: #### C BC #### [facility] [address] [place] [address] Dr. Obi Miller Lymphocytes/100 WBC (Bld) 27.3 % Normal 20.5-60.0 [facility] Comment on above: Performed By: #### C BC #### [facility] [address] [place] [address] Dr. Obi Miller MANUAL DIFF REQ NO Normal [facility] Comment on above: Performed By: #### C BC #### [facility] [address] [place] [address] Dr. Obi Miller MCH (RBC) [Entitic mass] 29.2 pg Normal 26.7-34.0 [facility] Comment on above: Performed By: #### C BC #### [facility] [address] [place] [address] Dr. Obi Miller MCHC (RBC) [Mass/Vol] 35.7 g/dL Critically high 29.9-35.2 [facility] Comment on above: Performed By: #### C BC #### [facility] [address] [place] [address] Dr. Obi Miller MCV (RBC) [Entitic vol] 81.8 fL Normal 81.0-99.0 [facility] Comment on above: Performed By: #### C BC #### [facility] [address] [place] [address] Dr. Obi Miller MONO # 0.7 103/ul Normal 0.3-0.8 [facility] Comment on above: Performed By: #### C BC #### [facility] [address] [place] [address] Dr. Obi Miller Monocytes/100 WBC (Bld) 6.8 % Normal 1.7-12.0 [facility] Comment on above: Performed By: #### C BC #### [facility] [address] [place] [address] Dr. Obi Miller NEUT # 7.1 103/ul Critically high 1.4-6.5 [facility] Comment on above: Performed By: #### C BC #### [facility] [address] [place] [address] Dr. Obi Miller Neutrophils/100 WBC (Bld) 64.3 % Normal 43.0-75.0 [facility] Comment on above: Performed By: #### C BC #### [facility] [address] [place], [place] [address] Dr. Obi Miller Platelet mean volume (Bld) [Entitic vol] 9.7 fL Normal 9.5-13.5 [facility] Comment on above: Performed By: #### C BC #### [facility] [address] [place] [address] Dr. Obi Miller PLT 329 103/ul Normal 150-[address] [facility] Comment on above: Performed By: #### C BC #### [facility] [address] [place] [address] [address] Obi Miller RBC 5.10 106/ul Normal 4.20-5.40 [facility] Comment on above: Performed By: #### C BC #### [facility] [address] [place] [address] Dr. Obi Miller WBC 11.0 103/ul Normal 4.0-11.[address] [facility] Comment on above: Performed By: #### C BC #### [facility] [address] [place] [address] ABD/PELV W CONon 07-19-20 CT ABD/PELV W CON EXAM: CT Abd [...] Electronically authenticated by: MIGNON TAVAREZ Date: 2022-07-19 05:[address] [facility] ER URINE PROFILEon 2 Bilirubin Ql (U) Negative Normal NEGATIVE [facility] Comment on above: Performed By: #### Cliff POWELL UMICRO ####[facility] [address] [place] [address]Dr. Mariselalan Miller Clarity (U) CLEAR Normal CLEAR [facility] Comment on above: Performed By: #### Cliff POWELL UMICRO ####[facility] [address] [place], [place] [address]Dr. Yilan Miller Color (U) YELLOW Normal YELLOW [facility] Comment on above: Performed By: #### Cliff POWELL UMICRO ####[facility] [address] [place], [place] [address]Dr. Obi Miller ERUAHD A micrscopic examination will be performed if indicated. Normal [facility] Comment on above: Performed By: #### Cliff POWELL UMICRO ####[facility] [address] [place], [place] [address]Dr. Yilan Miller Glucose Ql (U) Negative Normal NEGATIVE [facility] Comment on above: Performed By: #### Cliff POWELL UMICRO ####[facility] [address] [place], [place] [address]Dr. Yilan Miller Hemoglobin Ql (U) MODERATE Abnormal NEGATIVE [facility] Comment on above: Performed By: #### Cliff RUDixie UMICRO ####[facility] [address]kcfl[address] [place], [place] [address]Dr. Yilan Miller Ketones Ql (U) Negative Normal NEGATIVE [facility] Comment on above: Performed By: #### Cliff RUDixie UMICRO ####[facility] [address] [place], [place] [address]Dr. Yilan Miller LEUKOCYTES Negative Normal NEGATIVE [facility] Comment on above: Performed By: #### Cliff POWELL UMICRO ####[facility] [address] [place] [address]Dr. Obi Miller Nitrite Ql (U) Negative Normal NEGATIVE [facility] Comment on above: Performed By: #### SHELLIE CLINTONRO ####[facility] [address] [place] [id number]. Obi Miller pH (U) 6.5 [pH] Normal 5-[address] [facility] Comment on above: Performed By: #### SHELLIE CLINTONRO ####[facility] [address] [place] [address]Dr. Obi Miller SPEC GRAVITY <=1.005 Abnormal 1.005-<=1.025 [facility] Comment on above: Performed By: #### Cliff POWELL UMICRO ####[facility] [address] [place] [address]Dr. Obi Miller UA PROTEIN Negative Normal NEGATIVE/ TRACE [facility] Comment on above: Performed By: #### SHELLIE CLINTONRO ####[facility] [address] [place] [address]Dr. Obi Miller UR MICRO IND INDICATED Normal [facility] Comment on above: Performed By: #### SHELLIE CLINTONRO ####[facility] [address] [place] [address]Dr. Obi Miller Urobilinogen Qn (U) 0.2 {Pascale'U}/dL Normal 0.2 - 1.[address] [facility] Comment on above: Performed By: #### Cliff POWELL UMICRO ####[facility] [address] [place] [address]Dr. Obi Miller LACTATE/LACTIC ACIDon 2021 Lactate [Moles/Vol] 3.0 mmol/L Critically high 0.4-1.9 [facility] Comment on above: Performed By: #### L ACT #### [facility] [address] [place] [address] [address] Obi Miller LIVER PROFILEon 07-19-2022 Albumin [Mass/Vol] 3.6 g/dL Normal 3.4-5.0 [facility] Comment on above: Performed By: #### C STAN BROWN, LIVER ####[facility] [address] [place] [address]Dr. Obi Miller Albumin/Globulin [Mass ratio] 0.9 {ratio} Normal [facility] Comment on above: Performed By: #### C STAN BROWN, LIVER ####[facility] [address] [place], [place] [address]Dr. Obi Miller ALP [Catalytic activity/Vol] 73 U/L Normal 46-[address] [facility] Comment on above: Performed By: #### C STAN BROWN, LIVER ####[facility] [address] [place], [place] [address]Dr. Obi Miller ALT [Catalytic activity/Vol] 32 U/L Normal 14-59 [facility] Comment on above: Performed By: #### STAN AGUILAR, LIVER ####[facility] [address]fwbr[address] [place], [place] [address]Dr. Obi Miller AST [Catalytic activity/Vol] 17 U/L Normal 15-37 [facility] Comment on above: Performed By: #### C STAN BROWN, LIVER ####[facility] [address]ws[address] [place], [place] [address]Dr. Obi Miller BILI, CONJUGATED 0.1 mg/dL Normal 0.0-0.2 [facility] Comment on above: Performed By: #### STAN AGUILAR, LIVER ####[facility] [facility] [id number] [place], [place] [address]Dr. Obi Miller Bilirubin [Mass/Vol] 0.2 mg/dL Normal 0.2-1.[address] [facility] Comment on above: Performed By: #### C STAN BROWN, LIVER ####[facility] [id number] [place], [place] [address]Dr. Obi Miller Globulin (S) [Mass/Vol] 3.8 g/dL Normal [facility] Comment on above: Performed By: #### C STAN BROWN, LIVER ####[facility] [address] [address]Dr. Obi Miller Protein [Mass/Vol] 7.4 g/dL Normal 6.4-8.2 [facility] Comment on above: Performed By: #### C STAN BROWN, LIVER ####[facility] [address] [address]Dr. Obi Miller PROF CHEM 8 (BAS METB)on Anion gap [Moles/Vol] 12.8 mmol/L Normal [facility] Comment on above: Performed By: #### C KEVIN BMP, LIVER ####[facility] [address] [address]Dr. Obi Miller Calcium [Mass/Vol] 10.1 mg/dL Normal 8.5-10.1 [facility] Comment on above: Performed By: #### C KEVIN BMP, LIVER ####[facility] [id number] [place], [place] [address]Dr. Obi Miller Chloride [Moles/Vol] 101 mmol/L Normal 98-[address] [facility] Comment on above: Performed By: #### C KEVIN BMP, LIVER ####[facility] [address] [place], [place] [address]Dr. Obi Miller CO2 [Moles/Vol] 27.3 mmol/L Normal 21.0-32.[address] [facility] Comment on above: Performed By: #### C KEVIN BMP, LIVER ####[facility] [id number] [place], [place] [address]Dr. Obi Miller Creatinine [Mass/Vol] 0.83 mg/dL Normal 0.55-1.[address] [facility] Comment on above: Performed By: #### C KEVIN BMP, LIVER ####[facility] [address] [place], [place] [address]Dr. Obi Miller EGFR-AF URUGUAYAN >60 Normal >=[address] [facility] Comment on above: Performed By: #### C MADM BMP, LIVER ####[facility] [address] [address]Dr. Yiben Miller EGFR-NON AF URUGUAYAN >60 Normal >=60 [facility] Comment on above: Performed By: #### C STAN BROWN, LIVER ####[facility] [address] [address]Dr. Obi Miller Glucose [Mass/Vol] 134 mg/dL Critically high 74-106 T [facility] Comment on above: Performed By: #### C STAN BROWN, LIVER ####[facility] [address] [address]Dr. Obi Miller Potassium [Moles/Vol] 3.1 mmol/L Critically low 3.5-5.1 [facility] Comment on above: Performed By: #### C STAN BROWN, LIVER ####[facility] [address] [address]Dr. Obi Miller Sodium [Moles/Vol] 138 mmol/L Normal 136-145 [facility] Comment on above: Performed By: #### STAN AGUILAR, LIVER ####[facility] [address] [address]Dr. Obi Miller Urea nitrogen [Mass/Vol] 12.0 mg/dL Normal 7.0-18.0 [facility] Comment on above: Performed By: #### STAN AGUILAR, LIVER ####[facility] [address] [address]Dr. Obi Miller Urea nitrogen/Creatinin e [Mass ratio] 14.5 mg/mg Normal [facility] Comment on above: Performed By: #### STAN AGUILAR, LIVER ####[facility] [address] [address]Dr. Obi Miller URINE MICROSCOPIC ONLYon BACTERIA TRACE Abnormal NONE SEEN [facility] Comment on above: Performed By: #### BRANDT CLINTON ####[facility] [address] [address]Dr. Obi Miller Bacteria identified Cx Nom (U) NOT INDICATED Normal [facility] Comment on above: Performed By: #### BRANDT CLINTON ####[facility] [id number] [id number]. Obi Miller CAST NONE SEEN Normal NONE SEEN [facility] Comment on above: Performed By: #### BRANDT CLINTON ####[facility] [address] [id number]. Obi Miller Crystals LM Nom (Urine sed) NONE SEEN Normal NONE SEEN [facility] Comment on above: Performed By: #### BRANDT CLINTON ####[facility] [address] [address]Dr. Obi Miller Epithelial cells LM Ql (Urine sed) FEW Abnormal NONE SEEN /RARE [facility] Comment on above: Performed By: #### BRANDT CLINTON ####[facility] [address] [address]Dr. Mariselaben Miller MUCOUS NONE SEEN Normal NONE SEEN [facility] Comment on above: Performed By: #### BRANDT CLINTON ####[facility] [address] [address]Dr. Obi Miller RBC 0-2 Normal 0-[address] [facility] Comment on above: Performed By: #### BRANDT CLINTON ####[facility] [address] [address]Dr. Obi Miller WBC 2-5 Abnormal N[address] SEEN [facility] Comment on above: Performed By: #### BRANDT CLINTON ####[facility] [address] [address]Dr. Mariselaben Miller US SINGLE QUAD RT UPPERon US [...] ALEXANDRA PADILLA Date: 2022-07-19 07:[address] [facility] XR CHEST 2 Von 07-19-2022 XR CHEST [...] by: MIGNON TAVAREZ Date: 2022-07-19 05:[address] [facility] XR CHEST 2 Von 05-09-2022 XR CHEST [...] by: MARÍA SABILLON Date: 2022-05-09 15:[address] [facility] US Gallbladderon 01-06-2022 US Gallbladder HISTORY: Nausea [...] by Luis Stephens on 01/06/2022 1033 Normal [facility]R Chest 2 Views*on 12-01-19 22 XR [...] by Trae Harp on 12/06/2021 0915 Normal [facility] MG MAMM SCREEN 3D BONI CADon 11-11-2021 MG MAMM SCREEN 3D BONI CAD Patient: JENNIFER ALEJANDRO Exam Date: 11/11/2021 : 1975 Gender:F Ordering : DR ZANE MANTILLA Admission #: [id number] Family : Order #: [id number] CLICK HERE TO VIEW EXAM RADIOLOGY REPORT [...] cervical cancer at age 38. LOCATION: [facility] BREAST COMPOSITION: Extremely dense, which lowers the [...] MD on 11/11/2021 at 10:[address] [facility] CBC AUTO DIFFon 10-17-2021 BASO # 0.1 103/ul Normal 0.0-0.[address] [facility] Comment on above: Performed By: #### C BC #### [facility] [address] [place] [address] Dr. Obi Miller Basophils/100 WBC (Bld) 0.6 % Normal 0.2-2.[address] [facility] Comment on above: Performed By: #### C BC #### [facility] [address] [place] [address] Dr. Obi Miller EO # 0.2 103/ul Normal 0.0-0.[address] [facility] Comment on above: Performed By: #### C BC #### [facility] [address] [place] [address] Dr. Obi Miller Eosinophils/100 WBC (Bld) 2.2 % Normal 0.9-7.[address] [facility] Comment on above: Performed By: #### C BC #### [facility] [address] [place] [address] Dr. Obi Miller Erythrocyte distribution width (RBC) [Ratio] 12.6 % Normal 11.0-15.[address] [facility] Comment on above: Performed By: #### C BC #### [facility] [address] [place] [address] Dr. Obi Miller Hematocrit (Bld) [Volume fraction] 40.1 % Normal 36.0-48.[address] [facility] Comment on above: Performed By: #### C BC #### [facility] [address] [place] [address] Dr. Obi Miller Hemoglobin (Bld) [Mass/Vol] 13.4 g/dL Normal 12.0-16.[address] [facility] Comment on above: Performed By: #### C BC #### [facility] [address] [place] [address] Dr. Obi Miller IG # 0.02 10e3/ul Normal 0.00-0.[address] [facility] Comment on above: Performed By: #### C BC #### [facility] [address] [place] [address] Dr. Obi Miller IG % 0.3 % Normal 0.0-0.5 [facility] Comment on above: Performed By: #### C BC #### [facility] [address] [place] [address] Dr. Obi Miller LYMPH # 2.7 103/ul Normal 1.2-3.[address] [facility] Comment on above: Performed By: #### C BC #### [facility] [address] [place] [address] Dr. Obi Miller Lymphocytes/100 WBC (Bld) 34.7 % Normal 20.5-60.0 [facility] Comment on above: Performed By: #### C BC #### [facility] [address] [place] [address] Dr. Obi Miller MANUAL DIFF REQ NO Normal [facility] Comment on above: Performed By: #### C BC #### [facility] [address] [place] [address] Dr. Obi Miller MCH (RBC) [Entitic mass] 28.4 pg Normal 26.7-34.0 [facility] Comment on above: Performed By: #### C BC #### [facility] [address] [place] [address] Dr. Obi Miller MCHC (RBC) [Mass/Vol] 33.4 g/dL Normal 29.9-35.2 [facility] Comment on above: Performed By: #### C BC #### [facility] [address] [place] [address] Dr. Obi Miller MCV (RBC) [Entitic vol] 85.0 fL Normal 81.0-99.[address] [facility] Comment on above: Performed By: #### C BC #### [facility] [address] [place] [address] Dr. Obi Miller MONO # 0.6 103/ul Normal 0.3-0.[address] [facility] Comment on above: Performed By: #### C BC #### [facility] [address] [place] [address] Dr. Obi Miller Monocytes/100 WBC (Bld) 7.2 % Normal 1.7-12.0 [facility] Comment on above: Performed By: #### C BC #### [facility] [address] [place] [address] Dr. Obi Miller NEUT # 4.3 103/ul Normal 1.4-6.5 [facility] Comment on above: Performed By: #### C BC #### [facility] [address] [place] [address] Dr. Obi Miller Neutrophils/100 WBC (Bld) 55.0 % Normal 43.0-75.0 [facility] Comment on above: Performed By: #### C BC #### [facility] [address] [place] [address] Dr. Obi Miller Platelet mean volume (Bld) [Entitic vol] 9.7 fL Normal 9.5-13.5 [facility] Comment on above: Performed By: #### C BC #### [facility] [address] [place] [address] Dr. Obi Miller PLT 302 103/ul Normal 150-[address] [facility] Comment on above: Performed By: #### C BC #### [facility] [address] [place] [address] Dr. Obi Miller RBC 4.72 106/ul Normal 4.20-5.[address] [facility] Comment on above: Performed By: #### C BC #### [facility] [address] [place] [address] Dr. Obi Miller WBC 7.8 103/ul Normal 4.0-11.[address] [facility] Comment on above: Performed By: #### C BC #### [facility] [address] [place] [address] Dr. Obi Miller LIPID PROFILEon 10-17-2021 CHOL-HDL RATIO NORM SEE BELOW Normal [facility] Comment on above: Result Comment: 3.3 - 4.4 LOW RISK 4.4 - 7.1 AVERAGE RISK 7.1 - 11.0 MODERATE RISK >11.0 HIGH RISK Performed By: #### C MP, LIPID, MG #### [facility] [address] [address] [address] Obi Miller Cholesterol [Mass/Vol] 197 mg/dL Normal <=200 [facility] Comment on above: Performed By: #### C MP, LIPID, MG #### [facility] [address] [address] [address] Obi Miller Cholesterol in HDL [Mass/Vol] 57 mg/dL Normal [facility] Comment on above: Performed By: #### C MP, LIPID, MG #### [facility] [address] [address] [address] Obi Miller Cholesterol in LDL [Mass/Vol] 111.4 mg/dL Normal [facility] Comment on above: Performed By: #### C MP, LIPID, MG #### [facility] [address] [address] [address] Obi Miller Cholesterol.total/ Cholesterol in HDL [Mass ratio] 3.5 {ratio} Normal [facility] Comment on above: Performed By: #### C MP, LIPID, MG #### [facility] [address] [address] [address] Obi Miller HDL NORMAL > or = 60 mg/dl - LO W CARDIOVASCULAR RISK <40 mg/dl - HIGH CARDIOVASCULAR RISK Normal [facility] Comment on above: Performed By: #### C MP, LIPID, MG #### [facility] [address] [address] [address] Obi Miller LDL CALC NORMAL SEE BELOW Normal [facility] Comment on above: Result Comment: <100 mg/dl OPTIMAL 100 - 129 mg/dl NEAR OR ABOVE OPTIMAL 130 - 159 mg/dl BORDERLINE HIGH 160 - 189 mg/dl HIGH >190 mg/dl VERY HIGH Performed By: #### C MP, LIPID, MG #### [facility] [address] [address] [address] Obi Miller Triglyceride [Mass/Vol] 143 mg/dL Normal <=150 [facility] Comment on above: Performed By: #### C MP, LIPID, MG #### [facility] [address] [address] [address] Obi Miller VLDL CALC 28.6 mg/dL Normal [facility] Comment on above: Performed By: #### C MP, LIPID, MG #### [facility] [address] [place] [address] Dr. Obi Miller MAGNESIUMon 10-17-2021 Magnesium [Mass/Vol] 2.2 mg/dL Normal 1.6-2.3 [facility] Comment on above: Performed By: #### C MP, LIPID, MG #### [facility] [address] [place] [address] Dr. Obi Miller PROF 14(COMP METB)on 022 Albumin [Mass/Vol] 3.3 g/dL Critically low 3.5-5.0 [facility] Comment on above: Performed By: #### C MP, LIPID, MG #### [facility] [address] [place] [address] Dr. Obi Miller Albumin/Globulin [Mass ratio] 0.9 {ratio} Normal [facility] Comment on above: Performed By: #### C MP, LIPID, MG #### [facility] [address] [place] [address] Dr. Obi Miller ALP [Catalytic activity/Vol] 70 U/L Normal 38-126 [facility] Comment on above: Performed By: #### C MP, LIPID, MG #### [facility] [address] [place] [address] Dr. Obi Miller ALT [Catalytic activity/Vol] 27 U/L Normal 9-52 [facility] Comment on above: Performed By: #### C MP, LIPID, MG #### [facility] [address] [place] [address] Dr. Obi Miller Anion gap [Moles/Vol] 12.8 mmol/L Normal [facility] Comment on above: Performed By: #### C MP, LIPID, MG #### [facility] [address] [place] [address] Dr. Obi Miller AST [Catalytic activity/Vol] 13 U/L Critically low 14-36 [facility] Comment on above: Performed By: #### C MP, LIPID, MG #### [facility] [address] [address] [address] Obi Miller Bilirubin [Mass/Vol] 0.4 mg/dL Normal 0.2-1.3 [facility] Comment on above: Performed By: #### C MP, LIPID, MG #### [facility] [address] [place] [address] Dr. Obi Miller Calcium [Mass/Vol] 8.4 mg/dL Normal 8.4-10.2 [facility] Comment on above: Performed By: #### C MP, LIPID, MG #### [facility] [address] [address] [address] Obi Miller Chloride [Moles/Vol] 108 mmol/L Critically high 98-107 [facility] Comment on above: Performed By: #### C MP, LIPID, MG #### [facility] [address] [place] [address] Dr. Obi Miller CO2 [Moles/Vol] 27.0 mmol/L Normal 22.0-30.0 [facility] Comment on above: Performed By: #### C MP, LIPID, MG #### [facility] [address] [place] [address] Dr. Obi Miller Creatinine [Mass/Vol] 0.71 mg/dL Normal 0.52-1.04 [facility] Comment on above: Performed By: #### C MP, LIPID, MG #### [facility] [address] [place] [address] Dr. Obi Miller EGFR-AF URUGUAYAN >60 Normal >=[address] [facility] Comment on above: Performed By: #### C MP, LIPID, MG #### [facility] [address] [place] [address] Dr. Obi Miller EGFR-NON AF URUGUAYAN >60 Normal >=60 [facility] Comment on above: Performed By: #### C MP, LIPID, MG #### [facility] [address] [place] [address] Dr. Obi Miller Globulin (S) [Mass/Vol] 3.6 g/dL Normal [facility] Comment on above: Performed By: #### C MP, LIPID, MG #### [facility] [address] [address] [address] Obi Miller Glucose [Mass/Vol] 109 mg/dL Critically high 74-106 [facility] Comment on above: Performed By: #### C MP, LIPID, MG #### [facility] [address] [address] [address] Obi Miller Potassium [Moles/Vol] 3.8 mmol/L Normal 3.4-5.0 [facility] Comment on above: Performed By: #### C MP, LIPID, MG #### [facility] [address] [address] [address] Obi Miller Protein [Mass/Vol] 6.9 g/dL Normal 6.1-8.2 [facility] Comment on above: Performed By: #### C MP, LIPID, MG #### [facility] [address] [address] [address] Obi Miller Sodium [Moles/Vol] 144 mmol/L Normal 137-145 [facility] Comment on above: Performed By: #### C MP, LIPID, MG #### [facility] [address] [address] [address] Obi Miller Urea nitrogen [Mass/Vol] 8.0 mg/dL Normal 7.0-17.0 [facility] Comment on above: Performed By: #### C MP, LIPID, MG #### [facility] [address] [address] [address] Obi Miller Urea nitrogen/Creatinin e [Mass ratio] 11.3 mg/mg Normal [facility] Comment on above: Performed By: #### C MP, LIPID, MG #### [facility] [address] [address] [address] Obi Miller VITAMIN D 25 OHon 10-17-2021 VIT D 25-OH 24.1 ng/mL Normal [facility] Comment on above: Performed By: #### V ITAD #### [facility] [address] [address] [address] Obi Miller VIT D RANGES SEE BELOW Normal [facility] Comment on above: Result Comment: <20 ng/mL Vit D deficient 20 - <30 ng/mL Vit D insufficient 30 - 100 ng/mL Vit D sufficient >100 ng/mL Potential Toxicity Performed By: #### V ITAD #### [facility] [address] [place], [place] [address] Dr. Obi Miller Basic Metabolic Profon 07-18 (cont.) Normal [facility] Comment on above: Result Comment: Aver age GFR for 40-49 years old: 99 mL/min/1.73sq mChronic Kidney Disease: <60 mL/min/1.73sq mKidney failure: <15 mL/min/1.73sq meGFR calculated using average adult body mass. Additional eGFR calculator available at:http://www.Squrl/multiple_crcl_2011.htm Performed By: #### C DP, TROPI, BMP ####[address] [place] [address] Anion gap 3 molar conc 12 mmol/L Normal 9-17 [facility] Comment on above: Performed By: #### C DP, TROPI, BMP ####[address] [place] [address] BUN/CRE Ratio 15 Normal 9-20 [facility] Comment on above: Performed By: #### C DP, TROPI, BMP ####[address] [place] [address] Calcium mass conc 8.8 mg/dL Normal 8.6-10.4 [facility] Comment on above: Performed By: #### C DP, TROPI, BMP ####[address] [place] [address] Chloride molar conc 105 mmol/L Normal 98-107 [facility] Comment on above: Performed By: #### C DP, TROPI, BMP ####[address] [place] [address] CO2 molar conc 22 mmol/L Normal 20-31 [facility] Comment on above: Performed By: #### C DP, TROPI, BMP ####[address] [place] [address] Creatinine mass conc 0.60 mg/dL Normal 0.50-0.90 [facility] Comment on above: Performed By: #### C DP, TROPI, BMP ####[address] [place] [address] GFR, Amer >60 Normal >60 [facility] Comment on above: Performed By: #### C DP, TROPI, BMP ####[address] [place] [address] GFR,non Amer >60 Normal >60 [facility] Comment on above: Performed By: #### C DP, TROPI, BMP ####[address] [place] [address] Glucose mass conc 90 mg/dL Normal 70-99 [facility] Comment on above: Performed By: #### C DP, TROPI, BMP ####[address] [place] [address] Potassium molar conc 3.8 mmol/L Normal 3.7-5.3 [facility] Comment on above: Performed By: #### C DP, TROPI, BMP ####[address] [place] [address] Sodium molar conc 139 mmol/L Normal 135-144 [facility] Comment on above: Performed By: #### C DP, TROPI, BMP ####[address] [place] [address] Staging: Normal [facility] Comment on above: Result Comment: Stag e 1: Some kidney damage normal GFRStage 2: Mild kidney damage GFR 60-89Stage 3: Moderate kidney damage GFR 30-59Stage 4: Severe kidney damage GFR 15-29Stage 5: Severe kidney damage GFR <15ESRD - chronic treatment by dialysis or transplant Performed By: #### C DP TROPI, BMP ####[address] [place] [address] Urea nitrogen mass conc 9 mg/dL Normal 6-20 [facility] Comment on above: Performed By: #### C DP, TROPI, BMP ####[address] [place] [address] CBC with Diffon 07-18-2018 Abs. Basophil 0.06 k/uL Normal 0.00-0.20 [facility] Comment on above: Performed By: #### C NERIS TROPI, BMP ####[address] [place] [address] Abs.Imm.Granulocyt e <0.03 Normal 0.00-0.30 [facility] Comment on above: Performed By: #### C NERIS TROPI, BMP ####[address] [place] [address] Abs.Neutrophil (Seg) 4.39 k/uL Normal 1.50-8.10 [facility] Comment on above: Performed By: #### C NERIS TROPI, BMP ####[address] [place] [address] Basophils/100 WBC Auto (Bld) 1 % Normal 0-2 [facility] Comment on above: Performed By: #### C DP, TROPI, BMP ####[address] [place] [address] Eosinophils Auto #/vol (Bld) 0.13 10*3/uL Normal 0.00-0.44 [facility] Comment on above: Performed By: #### C DP, TROPI, BMP ####[address] [place] [address] Eosinophils/100 WBC Auto (Bld) 2 % Normal 1-4 [facility] Comment on above: Performed By: #### C DP, TROPI, BMP ####[address] [place] [address] Erythrocyte distribution width Auto Ratio (RBC) 12.4 % Normal 11.8-14.4 [facility] Comment on above: Performed By: #### C DP, TROPI, BMP ####[address] [place] [address] Hematocrit Auto Volume Fraction (Bld) 40.5 % Normal 36.3-47.1 [facility] Comment on above: Performed By: #### C DP TROPI, BMP ####[address] [place] [address] Hemoglobin mass conc (Bld) 14.1 g/dL Normal 11.9-15.1 [facility] Comment on above: Performed By: #### C NERIS TROPI, BMP ####[address] [place] [address] Immature granulocytes #/vol (Bld) 0 % Normal 0 [facility] Comment on above: Performed By: #### C DP TROPI, BMP ####[address] [place] [address] Lymphocytes Auto #/vol (Bld) 2.52 10*3/uL Normal 1.10-3.70 [facility] Comment on above: Performed By: #### C DP TROPI, BMP ####[address] [place] [address] Lymphocytes/100 WBC Auto (Bld) 33 % Normal 24-43 [facility] Comment on above: Performed By: #### C DP, TROPI, BMP ####[address] [place] [id number] MCH Auto Entitic mass (RBC) 30.9 pg Normal 25.2-33.5 [facility] Comment on above: Performed By: #### C DP, TROPI, BMP ####[address] , [place] [address] MCHC Auto mass conc (RBC) 34.8 g/dL Normal 28.4-34.8 [facility] Comment on above: Performed By: #### C DP TROPI, BMP ####[address] , [place] [address] MCV Auto Entitic volume (RBC) 88.6 fL Normal 82.6-102.9 [facility] Comment on above: Performed By: #### C NERIS TROPI, BMP ####[address] [place] [address] Monocytes Auto #/vol (Bld) 0.54 10*3/uL Normal 0.10-1.20 [facility] Comment on above: Performed By: #### C SERENA CORDONI, BMP ####[address] , [place] [address] Monocytes/100 WBC Auto (Bld) 7 % Normal 3-12 [facility] Comment on above: Performed By: #### C SERENA CORDONI, BMP ####[address] , [place] [address] Neutrophil (Seg) 57 % Normal 36-65 [facility] Comment on above: Performed By: #### C SERENA CORDONI, BMP ####[address] , [place] [address] NRBC Automated 0.0 per 100 WBC Normal 0.0 [facility] Comment on above: Performed By: #### C SERENA CORDONI, BMP ####[address] [place] [address] Platelet mean volume Auto Entitic volume (Bld) 9.3 fL Normal 8.1-13.5 [facility] Comment on above: Performed By: #### C NERIS TROPI, BMP ####[address] [place] [address] Platelets Auto #/vol (Bld) 245 10*3/uL Normal 138-453 [facility] Comment on above: Performed By: #### C DP, TROPI, BMP ####[address] [place] [address] RBC Auto #/vol (Bld) 4.57 10*6/uL Normal 3.95-5.11 [facility] Comment on above: Performed By: #### C DP, TROPI, BMP ####[address] [place] [address] WBC Auto #/vol (Bld) 7.7 10*3/uL Normal 3.5-11.3 [facility] Comment on above: Performed By: #### C DP, TROPI, BMP ####[address] [place] [address] Auto Diff Performed NOT REPORTED Normal [facility] Comment on above: Performed By: #### C DP, TROPI, BMP ####[address] [place] [address] Platelets Auto #/vol (Bld) NOT REPORTED Normal [facility] Comment on above: Performed By: #### C DP, TROPI, BMP ####[address] [place] [address] RBC morphology finding Nom (Bld) NOT REPORTED Normal [facility] Comment on above: Performed By: #### C DP, TROPI, BMP ####[address] [place] [address] WBC Morphology NOT REPORTED Normal [facility] Comment on above: Performed By: #### C DP, TROPI, BMP ####[address] [place] [address] CT CHEST PULMONARY EMBOLISM W CONTRASTon 07-18-2018 [...] DAVID Godoyigned by:Roland Hernandez MD07/18/18inal result Normal [facility] D-Dimer Teston 07-18-2018 D-Dimer Test 1.11 mg/L FEU High 0.19-0.50 [facility] Comment on above: Result Comment: Elev ated [...] of 98%). Performed By: #### D NATALIA ####[address] [place] [address] HCG, ,Urineon 07-18 HCG.beta subunit ( test) Ql (U) Negative Normal NEG [facility] Comment on above: Result Comment: Spec imens with hCG levels near the threshold of the test (25 mIU/mL) may give a negative or indeterminate result. In such cases, another test should be performed with a new specimen in 48-72 hours. If early is suspected clinically in this setting, correlation with quantitative serum b-hCG level is suggested.[facility] has confirmed the use of plasma for this test. This has not been cleared or approved by the U.S. Food and Drug Administration. The FDA has determined that such clearance is not necessary. Performed By: #### U HCG ####[address] [place] [address] Lipaseon 07-18-2018 Lipase enzyme act/vol 30 U/L Normal 13-60 [facility] Comment on above: Performed By: #### L IP, LIVP ####[address] [place] [address] Liver Profileon 07-18-2018 Albumin mass conc 3.8 g/dL Normal 3.5-5.2 [facility] Comment on above: Performed By: #### L IP, LIVP ####[address] [place] [address] Albumin/Globulin mass ratio 1.4 {ratio} Normal 1.0-2.5 [facility] Comment on above: Performed By: #### L IP, LIVP ####[address] [place] [address] Alkaline Phos 58 U/L Normal 35-104 [facility] Comment on above: Performed By: #### L IP, LIVP ####[address] [place] [address] ALT enzyme act/vol 31 U/L Normal 5-33 [facility] Comment on above: Performed By: #### L IP, LIVP ####[address] [place] [address] AST enzyme act/vol 22 U/L Normal <32 [facility] Comment on above: Performed By: #### L IP, LIVP ####[address] [place] [address] Bilirubin Ql (U) 0.41 mg/dL Normal 0.3-1.2 [facility] Comment on above: Performed By: #### L IP, LIVP ####[address] [place] [address] Bilirubin, Indirect CANNOT BE CALCULATED Normal 0.00-1.00 [facility] Comment on above: Performed By: #### L IP, LIVP ####[address] [place] [address] Bilirubin.direct mass conc mg/dL Normal <0.31 [facility] Comment on above: Performed By: #### L IP, LIVP ####[address] [place] [address] Protein mass conc 6.6 g/dL Normal 6.4-8.3 [facility] Comment on above: Performed By: #### L IP, LIVP ####[address] [place] [address] Globulin Calculated mass conc (S) NOT REPORTED Normal 1.5-3.8 [facility] Comment on above: Performed By: #### L IP, LIVP ####[address] [place] [address] Troponinon 07-18-2018 Troponin T.cardiac mass conc ug/L Normal <0.03 [facility] Comment on above: Result Comment: Trop onin T results cannot be compared to Troponin-I results. Performed By: #### C DP, TROPI, BMP ####[address] [place] [address] Troponin I.cardiac mass conc Normal [facility] Comment on above: Result Comment: Refe rence [...] for diagnosis. Performed By: #### C DP, SANDEEP, BMP ####[address] [place] [address] XR CHEST (2 VW)on 07-18-2018 Protein mass conc EXAMINATION:TWO VIEW S OF THE CHEST07/18/2018 4:03 pmCOMPARISON:None.HIST ORY:ORDERING SYSTEM PROVIDED HISTORY: chest painTECHNOLOGIST PROVIDED HISTORY:chest painFINDINGS:Cardiac and mediastinal shadows are normal. No infiltrates. No effusions.No pneumothorax. No free air below the diaphragm.IMPRESSION: Normal exam.Interpreted by:JUAN DAIVD Venegasigned by:Asha Reese MD07/18/18inal result Normal [facility] Vital Signs Date Time Vital Sign Value Performing Clinician Facility 04-12-2024 14:19-0400 Blood Pressure Location PAUL SHEN [facility] 04-12-2024 14:19-0400 Body temperature 98.42 [degF] PAUL SHEN [facility] 04-12-2024 14:19-0400 Diastolic blood pressure 62 mm[Hg] PAUL SHEN [facility] 04-12-2024 14:19-0400 Heart rate 74 /min PAUL SHEN [facility] 04-12-2024 14:19-0400 SaO2% (BldA) [Mass fraction] 98 % PAUL SHEN [facility] 04-12-2024 14:19-0400 Systolic blood pressure 118 mm[Hg] PAUL SHEN [facility] 12-11-2023 08:53-0400 Body height 160.02 cm MD Trae Julian Work Phone: [facility] 12-11-2023 08:53-0400 Body weight 96.61 kg MD Trae Julian Work Phone: [facility] 04-27-2023 15:56-0400 Body height 160 cm Trae Kramer MD Work Phone: [facility] 04-27-2023 15:56-0400 Body weight 93.8 kg Trae Kramer MD Work Phone: [facility] 04-27-2023 15:56-0400 Diastolic blood pressure 80 mm[Hg] Trae Kramer MD Work Phone: [facility] 04-27-2023 15:56-0400 Heart rate 67 /min Trae Kramer MD Work Phone: [facility] 04-27-2023 15:56-0400 Systolic blood pressure 119 mm[Hg] Trae Kramer MD Work Phone: [facility] 11-01-2022 09:30-0400 Body height 160.02 cm Gualberto Jacobsen Other [employer] Other 11-01-2022 09:30-0400 Body mass index (BMI) [Ratio] 35.12 kg/m2 Gualberto Jacobsen Other [employer] Other 11-01-2022 09:30-0400 Body weight 89.95 kg Gualberto Jacobsen Other [employer] Other 11-01-2022 09:30-0400 Diastolic blood pressure 78 mm[Hg] Gualberto Jacobsen Other [employer] Other 11-01-2022 09:30-0400 Respiratory rate 18 /min Gualberto Jacobsen Other [employer] Other 11-01-2022 09:30-0400 SaO2% (BldA) [Mass fraction] 99 % Gualberto Jacobsen Other [employer] Other 11-01-2022 09:30-0400 Systolic blood pressure 140 mm[Hg] Gualberto Jacobsen Other [employer] Other 09-12-2022 12:15-0500 Body height 160.02 cm Lulimaster Christianmariya Other [employer] Other 09-05-2022 12:15-0500 Body height 160.02 cm Gualberto Jacobsen Other [employer] Other 09-05-2022 12:15-0500 Body mass index (BMI) [Ratio] 35.42 kg/m2 Gualberto Jacobsen Other [employer] Other 09-05-2022 12:15-0500 Body weight 90.72 kg Gualberto Jacobsen Other [employer] Other 09-05-2022 12:15-0500 Diastolic blood pressure 73 mm[Hg] Gualberto Jacobsen Other [employer] Other 09-05-2022 12:15-0500 Respiratory rate 18 /min Gualberto Jacobsen Other [employer] Other 09-05-2022 12:15-0500 SaO2% (BldA) [Mass fraction] 98 % Gualberto Jacobsen Other [employer] Other 09-05-2022 12:15-0500 Systolic blood pressure 113 mm[Hg] Gualberto Jacobsen Other [facility] [employer] Other 04-24-2022 08:54-0400 Body height 160.02 cm MD Trae Julian Work Phone: [facility] 04-24-2022 08:54-0400 Body temperature 98.4 [degF] MD Trae Julian Work Phone: [facility] 04-24-2022 08:54-0400 Body weight 90.5 kg MD Trae Julian Work Phone: [facility] 04-24-2022 08:54-0400 Diastolic blood pressure 89 mm[Hg] MD Trae Julian Work Phone: [facility] 04-24-2022 08:54-0400 Heart rate 88 /min MD Trae Julian Work Phone: [facility] 04-24-2022 08:54-0400 Respiratory rate 16 /min MD Trae Julian Work Phone: [facility] 04-24-2022 08:54-0400 SaO2% (BldA) [Mass fraction] 98 % MD Trae Julian Work Phone: [facility] 04-24-2022 08:54-0400 Systolic blood pressure 140 mm[Hg] MD Trae Julian Work Phone: [facility] Encounters Encounter Date Encounter Type Care Provider Facility Start: 04-14-2024 End: 04-14-2024 ambulatory TRAE JULIAN Not Available Start: 04-12-2024 End: 04-12-2024 ambulatory PAUL SHEN Facility:[facility] Start: 04-12-2024 End: 04-12-2024 Patient encounter procedure PAUL SHEN [facility] Start: 03-19-2024 Orders Only Main Bowers Work Phone: Neurology Comment on above: Exam for clinical re search (Primary Dx) Start: 03-19-2024 Patient encounter procedure Main Pappas MD Work Phone: [facility] Work Phone: Start: 03-17-2024 Orders Only Main Bowers Work Phone: Neurology Comment on above: Exam for clinical re search (Primary Dx) Start: 03-17-2024 Patient encounter procedure Main Pappas MD Work Phone: [facility] Work Phone: Start: 03-13-2024 Telephone encounter Jennifer palacio Research Coordinator Work Phone: [facility] Comment on above: Research ([phone] Nelson n Avoidance Behavior in Migraine Patients) Start: 02-19-2024 Telephone encounter Jennifer palacio Research Coordinator Work Phone: [facility] Start: 02-04-2024 Chart abstracting Main Pappas MD Work Phone: Neurology Start: 01-09-2024 End: 01-09-2024 ambulatory MAHNAZ WEAVER V Not Available Start: 12-11-2023 End: 12-11-2023 ambulatory Radha Reed Facility:[facility] Start: 12-11-2023 End: 12-11-2023 ambulatory MD Trae Julian Work Phone: [facility] Work Phone: Start: 12-11-2023 End: 12-11-2023 Patient encounter procedure MD Trae Julian Work Phone: [facility]-Nuc Med [facility] [place] Work Phone: Start: 08-21-2023 End: 08-21-2023 ambulatory TRAE JULIAN Not Available Start: 04-27-2023 End: 04-27-2023 ambulatory TRAE KRAMER Facility:[facility] Start: 04-27-2023 End: 04-27-2023 Patient encounter procedure Trae Kramer MD Work Phone: Urology Comment on above: Encounter for follow -up surveillance of kidney cancer (Primary Dx); History of renal cell carcinoma; H/O partial nephrectomy Start: 04-27-2023 End: 04-27-2023 ambulatory TRAE JULIAN Facility:[facility] Start: 04-27-2023 End: 04-27-2023 Subsequent hospital visit by physician Xr Chest Main [facility] Comment on above: H/O partial nephrect giuseppe [Z90.5] Start: 03-24-2023 Refill Kathrin Bowers Work Phone: Neurology Comment on above: Refill Request Start: 11-01-2022 End: 11-01-2022 ambulatory Gualberto Jacobsen Other [employer] Other Start: 11-01-2022 Follow-up encounter [facility] Start: 11-01-2022 Registered Recurring MD Trae Julian Work Phone: [facility]-Weight Management Work Phone: Start: 10-04-2022 End: 10-04-2022 ambulatory MD Trae Julian Work Phone: [facility] Work Phone: Start: 10-04-2022 End: 10-04-2022 Patient encounter procedure MD Trae Julian Work Phone: [facility]-Self Pay Exercise Program Start: 09-12-2022 End: 09-12-2022 ambulatory Luli Rodriguez Other [employer] Other Start: 09-12-2022 IBT FOR OBESITY GROU P 2-[address] [facility] Start: 09-08-2022 End: 09-08-2022 ambulatory Gualberto Jacobsen Other [employer] Other Start: 09-08-2022 Telephone encounter [facility] Start: 09-05-2022 End: 09-05-2022 ambulatory Gualberto Jacobsen Other [employer] Other Start: 09-05-2022 Follow-up encounter Gualberto Ann-Marie Marvel [facility]ary [facility] Start: 09-02-2022 End: 09-02-2022 ambulatory Gualberto Farfandiff Other [facility] [employer] Other Start: 09-02-2022 En[address] raz Jacobsen [facility] Start: 08-28-2022 End: 08-28-2022 ambulatory Luli Rodriguez Other [facility] [employer] Other Start: 08-28-2022 Telephone encounter Luli Nelson [facility] Start: 08-14-2022 End: 08-15-[address] ZANE MANTILLA Facility:[facility] Start: 08-08-2022 End: 08-08-2022 Patient encounter procedure Trae Kramer MD Work Phone: Urology Comment on above: APPOINTMENT CANCELLE D (Primary Dx) Start: 07-19-2022 End: 07-19-[address] TRAE JULIAN Facility:[facility] Start: 05-09-2022 End: 05-10-[address] TRAE JULIAN Facility:[facility] Start: 04-24-2022 End: 04-24-2022 Patient encounter procedure MD Trae Julian Work Phone: [facility]-Pre-Surgical Testing Start: 02-23-2022 Chart abstracting Autumn Vang [...] patient Kathrin Zeng MD Work Phone: [facility] Start: 11-11-2021 End: 11-12-[address] ZANE MANTILLA Facility:[facility] Start: 10-18-2021 Encounter for genera l adult medical examination without abnormal findings DR TRAE JULIAN [facility] Start: 10-17-2021 End: 10-18-[address] TRAE JULIAN Facility:[facility] Start: 10-17-2021 End: 10-18-2021 Encounter for general adult medical examination without abnormal findings DR TRAE JULIAN Facility:[facility] Start: 07-18-2018 End: 07-18-2018 Emergency department patient visit ELVIRA WHIPPLE [facility] Start: 05-09-2017 End: 05-10-2017 Ambulatory DEFAULT PHYSICIAN Facility:[facility] Procedures Date Procedure Procedure Detail Performing Clinician Start: 12-11-2023 Radionuclide study o f abdomen MD Trae Julian Work Phone: Start: 04-27-2023 Mri abdomen w/o & w/contrast material Tanisha Alvarez [employer] Work Phone: Start: 02-06-2022 Adult depression scr eening assessment Kathrin Zeng MD Work Phone: Start: 07-18-2018 Ct thorax w/contrast material ELVIRA HOY Start: 07-18-2018 Urine test visual color cmprsn meths ELVIRA HOY Start: 07-18-2018 Radiologic exam ches t 2 views ELVIRA HOY Start: 07-18-2018 D-DIMER, QUANTITATIVE D OUGLAS HOY Start: 07-18-2018 Assay of lipase ELVIRA HOY Start: 07-18-2018 Basic metabolic pane l calcium total ELVIRA HOY Start: 07-18-2018 Blood count complete auto&auto difrntl wbc ELVIRA HOY Start: 07-18-2018 Hepatic function panel ELVIRA HOY Start: 07-18-2018 TROPONIN ELVIRA HO Y Start: 07-18-2018 INSERT PERIPHERAL IV DO UGLAS HOY Start: 07-18-2018 TELEMETRY MONITORING DO UGLAS HOY Start: 07-18-2018 VITAL SIGNS ELVIRA HO Y Start: 07-18-2018 EKG 12-LEAD ELVIRA HO Y Plan of Treatment Date Care Activity Detail Author Start: 04-27-2026 Diabetes Screening Diabetes Screening [facility] Start: 04-30-2024 End: 04-30-2024 Patient encounter procedure [facility] Comment on above: [id number] Pain Avoidance Behavior in Migrai ne Patients Screening/Baseline Evoked COLLINS, with no interpretation Start: 04-27-2024 End: 06-27-2024 Basic metabolic 2000 panel - Serum or Plasma BASIC METABOLIC PNL Lab Routine History of renal cell carcinoma Expected: 04/27/2024 (Approximate), Expires: 06/27/2024 [facility] Work Phone: Comment on above: Expected: 04/27/2024 (Approximate), Expi res: 06/27/2024 Start: 04-06-2024 Influenza vaccination Influenza Vaccine (#1) [facility] Start: 08-06-2023 Behavioral Health Screening Behavioral Health Screening [facility] Start: 05-28-2023 DIABETES SCREEN DIABETES SCREEN [facility] Start: 04-06-2023 Covid-19 Vaccine () Covid-19 Vaccine () [facility] Start: 04-06-2023 Influenza vaccination [facility] Start: 02-06-2023 Adult depression screening assessment DEPRESSION SCREENING [facility] Start: 08-06-2022 DEPRESSION ASSESSMENT DEPRESSION ASSESSMENT [facility] Start: 04-06-2022 Influenza vaccination INFLUENZA (#1) [facility] Start: 2022 COLOGUARD (FIT-DNA) COLOGUARD (FIT-DNA) [facility] Start: 2022 Colonoscopy COLONOSCOPY [facility] Start: 2022 COLORECTAL CANCER SCREENING COLORECTAL CANCER SCREENING [facility] Start: [address] COLONOGRAPHY [facility] Start: 2022 FECAL OCCULT BLOOD FECAL OCCULT BLOOD [facility] Start: 2022 Lipid 1996 panel - Serum or Plasma Lipid Screening [facility] Start: 2022 Lipid panel Lipid Screening [facility] Start: 2022 LIPID SCREEN LIPID SCREEN [facility] Start: 2022 Screening for malignant neoplasm of colon [facility] Start: 2022 SIGMOIDOSCOPY SIGMOIDOSCOPY [facility] Start: 2017 Mammography [facility] Start: 2017 Screening for malignant neoplasm of breast Mammogram Screening [facility] Start: 2007 HPV TESTING HPV TESTING [facility] Start: 1998 PAP TESTING PAP TESTING [facility] Start: 1998 Screening for malignant neoplasm of cervix Cervical Cancer Screening [facility] Start: 02-01-1996 Hepatitis B Vaccine (1 of 3 - 19+ 3-dose series) Hepatitis B Vaccine (1 of 3 - 19+ 3-dose series) [facility] Start: 02-01-1996 Urine microalbumin profile [facility] Start: 1995 Anxiety Screening Anxiety Screening [facility] Start: 1995 Depression Screening Depression Screening [facility] Start: 1995 HEPATITIS C SCREENING HEPATITIS C SCREENING [facility] Start: 1995 Hepatitis C screening Hepatitis C Screening [facility] Start: 1995 HIV SCREENING HIV SCREENING [facility] Start: 1995 HIV screening HIV Screening [facility] Start: 1977 COVID-19 VACCINE (#1) COVID-19 VACCINE (#1) [facility] Start: 1977 HEPATITIS B (1 of 3 - 3-dose series) HEPATITIS B (1 of 3 - 3-dose series) [facility] Start: 1977 Hepatitis B Vaccine (1 of 3 - 3-dose series) Hepatitis B Vaccine (1 of 3 - 3-dose series) [facility] End: 03-17-2025 Magnetoencephalography spon brain activity EPIL COLLINS SPONTANEOUS BRAIN ACTIVTY NEUROLOGY Routine Exam for clinical research 1 Occurrences starting 03/17/2024 until 03/17/2025 [facility] Work Phone: Comment on above: 1 Occurrences starting 03/17/2024 until 03/17/2025 End: 03-19-2025 Magnetoencephalography spon brain activity EPIL COLLINS SPONTANEOUS BRAIN ACTIVTY NEUROLOGY Routine Exam for clinical research 1 Occurrences starting 03/19/2024 until 03/19/2025 [facility] Work Phone: Comment on above: 1 Occurrences starting 03/19/2024 until 03/19/2025 End: 05-26-2024 Mri abdomen w/o & w/contrast material MRI ABDOMEN WO/W IVCON Radiology Routine History of renal cell carcinoma 1 Occurrences starting 04/27/2023 until 05/26/2024 [facility] Work Phone: Comment on above: 1 Occurrences starting 04/27/2023 until 05/26/2024 Radiologic exam chest 2 views XR CHEST 2V FRONTAL/LAT Radiology Routine H/O partial nephrectomy 04/27/2023 4:18 PM EDT [facility] Work Phone: End: 05-26-2024 Radiologic exam chest 2 views XR CHEST 2V FRONTAL/LAT Radiology Routine History of renal cell carcinoma 1 Occurrences starting 04/27/2023 until 05/26/2024 [facility] Work Phone: Comment on above: 1 Occurrences starting 04/27/2023 until 05/26/2024 Geronimo Charles jimmy Payers Date Payer Category Payer Self-pay [id number] 2023 Private Health Insurance [id number] 2022 [facility] [id number] 2018 Medicaid [employer]ICA[employer] [id number] 2018-Present [phone] [address] [place] [address] Medicaid [id number] 2018 Medicaid [id number] 2017 Unknown [id number] 1977 Unknown [id number]. 173 1977 Unknown [id number] [id number]. 593 1977 Unknown [id number] 2.16.840.1.710803.3.579.2. 593 1977 Unknown [id number] 2.16.840.1.924626.3.579.2. 593 1977 Unknown [id number] 2.16.840.1.558124.3.579.2. 593 1977 Unknown [id number] 2.16.840.1.412861.3.579.2. 593 1977 Unknown [id number] 2.16.840.1.360330.3.579.2. 727 1977 Unknown [id number] 2.16.840.1.541374.3.579.2. 1259 1977 Unknown [id number] 2.16.840.1.682638.3.579.2. 1259 1977 Unknown [id number] 2.16.840.1.486412.3.579.2. 1259 1959 Medicaid [id number] 1959 Unknown [id number] Private Health Insurance [facility] [id number] Unknown Unknown [id number]. 531 Social History Date Type Detail Facility Start: 04-24-2022 End: 04-27-2023 Tobacco smoking status [facility] Ex-smoker [facility] Work Phone: Start: 08-06-1997 End: 08-06-2006 History of tobacco use Current smoker [facility] Start: 10-19-2021 End: 04-27-2023 Alcohol intake Current non-drinker of alcohol (finding) [facility] Start: 1975 Sex Assigned At Not on file C [facility] Start: 1975 Sex Assigned At Female F [facility] Start: 10-19-2021 End: 04-27-2023 Sex Assigned At [facility] Start: 08-06-1997 End: 08-06-2006 History of tobacco use Cigarette Smoker [facility] Start: 05-28-2020 End: 04-27-2023 Cigarettes smoked current (pack per day) - Reported 1 [facility] Start: 05-28-2020 End: 04-27-2023 Tobacco use and exposure Smokeless tobacco non-user [facility] Adult Depression Screening Assessment 6 [facility] Start: 04-12-2024 Tobacco smoking status Never s moked tobacco (finding) [facility] Functional Status Date Assessment Result Facility 04-12-2024 Functional Status N/A [facility] Clinical Notes 09-13-2010 to 03-13-2024 Telephone Encounter - Jennifer Norris, Research Coordinator - 03/13/2024 2:14 PM EDTTelephone Encounter - Jennifer Norris Research Coordinator - 03/13/2024 2:14 PM EDT Note Date & Type Note Facility 03-13-2024 Telephone encounter Note Patient was reviewed and referred for research study 24-339 Pain Avoidance Behavior in Migraine Patients by Dr. Pappas. 3rd phone call attempt 03/13/24: called and spoke with patient about research study 24-339. Patient is interested in participating in study and has agreed to schedule for the visit for 04.30.24 [facility] Work Phone: 03-13-2024 Miscellaneous Notes Patient was reviewed and referred for research study 24-339 Pain Avoidance Behavior in Migraine Patients by Dr. Pappas. 3rd phone call attempt 03/13/24: called and spoke with patient about research study 24-339. Patient is interested in participating in study and has agreed to schedule for the visit for 04.30.24 documented in this encounter [facility] 02-19-2024 Telephone encounter Note Patient was reviewed and approved for research study 24-339 Pain Avoidance Behavior in Migraine Patients by Dr. Pappas. 02/19/2024: called patient unable to leave voicemail. Phone rings busy [facility] Work Phone: 02-19-2024 Miscellaneous Notes Patient was reviewed and approved for research study 24-339 Pain Avoidance Behavior in Migraine Patients by Dr. Pappas. 02/19/2024: called patient unable to leave voicemail. Phone rings busy documented in this encounter [facility] 02-04-2024 Note HNO ID: [id number] Author: MAIN PAPPAS MD Service: ? Author Type: Physician Type: Progress Notes Filed: 02/04/2024 14:48 Note Text: IRB#: [id number] It Program Manager: Dr. Lauren Alarcon Study Name: Neurophysiological Correlates of Pain Avoidance Behavior in Migraine Patients Date: February 04, 2024 Patient I have reviewed this patient's chart and deemed them eligible for the Pain Avoidance Behavior in Migraine Patients research study (IRB #[id number]) based on the inclusion/exclusion criteria. Research coordinators are able to initiate contact with the patient to see if they are interested in participation. Main Pappas MD [facility] 02-04-2024 History of Present illness Narrative IRB#: [id number] It Program Manager: Dr. Lauren Alarcon Study Name: Neurophysiological Correlates of Pain Avoidance Behavior in Migraine Patients Date: February 04, 2024 Patient I have reviewed this patient's chart and deemed them eligible for the Pain Avoidance Behavior in Migraine Patients research study (IRB #[id number]) based on the inclusion/exclusion criteria. Research coordinators are able to initiate contact with the patient to see if they are interested in participation. Main Pappas MD documented in this encounter [facility] 04-27-2023 History of Present illness Narrative Chief Complaint: follow up RCC [...] BMP Discussed with Dr. Kramer. Tanisha Alvarez APRN.PARTS SALESMAN documented in this encounter [facility] 04-27-2023 Note HNO ID: [id number] Author: Tanisha Alvarez APRN.JUWAN Service: ? Author [...] BMP Discussed with Dr. Kramer. Tanisha Alvarez APRN.PARTS SALESMAN [facility] 04-27-2023 History of Present illness Narrative Radiology Service Progress Note PATIENT [...] PERIPHERAL IV DATA: Not applicable SIGNED BY: MARITA Miranda) April 27, 2023 4:07 PM documented in this encounter [facility] 04-27-2023 Note HNO ID: [id number] Author: Joel Cheng RT(R) Service: Radiology Author [...] RT Ruben(R) April 27, 2023 4:07 PM [facility] 04-27-2023 Note HNO ID: [id number] Author: Tiesha Dominguez RN Service: Radiology Author [...] DATE: April 27, 2023 TIME: 2:14 PM [facility] 04-27-2023 History of Present illness Narrative Radiology Service Progress Note DATE [...] TIME: 2:14 PM documented in this encounter [facility] 04-27-2023 Note Patient Outreach (UR OLMN) JENNIFER ALEJANDRO ([id number]) 1975 F Date Time Provider Department 04/27/23 TRAE KRAMER During your visit today, we recorded the following information about you: Allergies As of Date: 04/27/2023 Noted Allergy Reaction SULFAMETHOXAZOLE-TRIMETHOPRIM 07/18/2018 2 - Rash Date Reviewed: 04/27/2023 Reviewed by: Tanisha Alvarez APRN.PARTS SALESMAN - Fully Assessed Visit Diagnosis:Screening for genitourinary condition [Z13.89] Order(s):URINALYSIS, REFLEX MICROSCOPIC [[id number]] Order #: [id number]. #:[id number] Prescriptions as of 04/30/2023 - erenumab-aooe (AIMOVIG [...] by mouth once daily. - rizatriptan (MAXALT MARKING STITCHER) 10 mg disintegrating tablet rizatriptan 10 mg [...] weight gain [R63.5] 05/09/2021 Encounter Status:Closed by [employer] on 04/30/23 [facility] 03-26-2023 Miscellaneous Notes Patient last seen on 02/07/22. Overdue for follow up. documented in this encounter [facility] 11-01-2022 Evaluation note Encounter Date Diagnosis Assessment Notes Oct, Impaired fasting glucose (ICD-10 - R73.01) Oct, Obesity (BMI 35.0-39.9 without comorbidity) (ICD-10 - E66.9) Oct, Fatty liver (ICD-10 - K76.0) Oct, Mixed hyperlipidemia (ICD-10 - E78.2) Oct, Metabolic syndrome X (ICD-10 - E88.81) Oct, Kidney stones (ICD-10 - N20.0) [employer] Other 02-07-2023 Evaluation note* Encounter Date Diagnosis [...] patient set personal goal using given handout. [employer] Other 2023 Evaluation note* Encounter Date Diagnosis Assessment Notes Treatment Notes Treatment Clinical Notes Aug, Impaired fasting glucose (ICD-10 - R73.01) Aug, Obesity (BMI 35.0-39.9 without comorbidity) (ICD-10 - E66.9) Aug, Fatty liver (ICD-10 - K76.0) Aug, Mixed hyperlipidemia (ICD-10 - E78.2) Aug, Metabolic syndrome X (ICD-10 - E88.81) Aug, Kidney stones (ICD-1 0 - N20.0) [employer] Other 07-21-2022 History of Present illness Narrative* [...] Treatment Study, IRB #[id number]. [facility] Miscellaneous Notes* Telephone Encounter - Sharon Osborne - 02/09/2022 10:30 AM EDT Images from the original note were not included. * Telephone Encounter - Robyn Mauricio RN - 02/08/2022 8:06 AM EDT PA submitted via covermymeds. JENNIFER ALEJANDRO (Rios: [id number]) Rx #: [id number] Aimovig 70MG/ML auto-injectors Form: [employer] Electronic PA Form (2017 WIPD) Wait for Determination [facility]. Robyn Mauricio RN * Telephone Encounter - Sharon Osborne - 02/07/2022 3:14 PM EDT Images from the original note were not included. Received faxed notification from [employer] stating PA needed on Aimovig 70mg. [facility] History of Present illness Narrative* Kathrin Zeng [...] ACTIVE PILLS ONLY- CONTINUOUS USE rizatriptan (MAXALT MARKING STITCHER) 10 mg disintegrating tablet rizatriptan 10 mg [...] Function tests in . Thyroid, 2019:29:3:412-420. Silverio Coronado, et al. 2017 Guidelines of the [place] Thyroid Association for the Diagnosis and Management [...] Staff, Division of [facility] [place] [address]/ [place] [address] Appt: 1. This office note may have [...] PCP: Trae Julian MD [facility] History of Past illness Narrative* Problem Noted Date Resolved Date 4.7 Hemicrania continua [339.41] 09/13/2010 09/13/2010 documented as of this encounter (statuses as of 02/07/2022) [facility] History of Past illness Narrative* Problem Noted Date Resolved Date 4.7 Hemicrania continua [339.41] 09/13/2010 09/13/2010 documented as of this encounter (statuses as of 02/09/2022) [facility] History of Past illness Narrative* Problem Noted Date Resolved Date 4.7 Hemicrania continua [339.41] 09/13/2010 09/13/2010 documented as of this encounter (statuses as of 02/23/2022) [facility] History of Past illness Narrative* Problem Noted Date Diagnosed Date Resolved Date 4.7 Hemicrania continua [339.41] 09/13/2010 09/13/2010 documented as of this encounter (statuses as of 03/26/2023) [facility] History of Past illness Narrative* Problem Noted Date Diagnosed Date Resolved Date 4.7 Hemicrania continua [339.41] 09/13/2010 09/13/2010 documented as of this encounter (statuses as of 04/28/2023) [facility] History of Past illness Narrative* Problem Noted Date Diagnosed Date Resolved Date 4.7 Hemicrania continua [339.41] 09/13/2010 09/13/2010 documented as of this encounter (statuses as of 04/28/2023) [facility] History of Past illness Narrative* Problem Noted Date Diagnosed Date Resolved Date 4.7 Hemicrania continua [339.41] 09/13/2010 09/13/2010 documented as of this encounter (statuses as of 04/28/2023) [facility] History of Past illness Narrative* Problem Noted Date Diagnosed Date Resolved Date 4.7 Hemicrania continua [339.41] 09/13/2010 09/13/2010 documented as of this encounter (statuses as of 07/17/2023) [facility] note No data available for this section [facility] Evaluation note* Diagnosis Chronic migraine without aura, with intractable migraine, so stated, with status migrainosus documented in this encounter [facility] noteNo assessment information availableFirelands Regional Medical Center Work Phone: Evaluation noteNo InformationNortLehigh Valley Health Network [employer] Other Evaluation note* Diagnosis H/O partial nephrectomy Personal history of surgery to other organs documented in this encounter [facility] note* Diagnosis Encounter for follow-up surveillance of kidney cancer- Primary Unspecified follow-up examination History of renal cell carcinoma H/O partial nephrectomy Personal history of surgery to other organs documented in this encounter [facility] note* Diagnosis H/O partial nephrectomy Personal history of surgery to other organs documented in this encounter [facility] note* Diagnosis APPOINTMENT CANCELLED- Primary documented in this encounter [facility] note* Diagnosis Exam for clinical research- Primary Examination of participant in clinical trial documented in this encounter [facility] note* Diagnosis Exam for clinical research- Primary Examination of participant in clinical trial documented in this encounter [facility] general Narrative - Reported* Type Description [...] History Tubal Ligation Surgical History Bone Marrow [place] Surgical History T & A Surgical History Heart Cath Surgical History partial nephrectomy Surgical History hysterectomy Hospitalization History see surgical hx Hospitalization History see above [place] [facility] Other Hospital Discharge instructions No data available for this section [facility] Progress note No data available for this section [facility] Reason for referral (narrative)* Outpatient Procedure (Routine) - New Request Specialty Diagnoses / Procedures Referred By Darcie meraz Referred To Contact [facility] Diagnoses Exam for clinical research Procedures EPIL COLLINS SPONTANEOUS BRAIN ACTIVTY MAGNETOENCEPHALOGRAPHY SPON BRAIN ACTIVITY Main Pappas MD [address] [place] [address] [address] Referral ID Status Reason Start Date Expiration Date Visits Requested Visits Authorized [id number] New Request Auto-Generat ed Referral 03/17/2024 03/17/2025 1 1 [facility] Center[facility] for referral (narrative)* Outpatient Procedure (Routine) - Authorized Specialty Diagnoses / Procedures Referred By Contac t Referred To Contact [facility] Diagnoses Exam for clinical research Procedures EPIL COLLINS SPONTANEOUS BRAIN ACTIVTY MAGNETOENCEPHALOGRAPHY SPON BRAIN ACTIVITY Main Pappas MD [address] [place] [address] [address] Referral ID Status Reason Start Date Expiration Date Visits Requested Visits Authorized [id number] Authorized Auto-Generat ed Referral 03/19/2024 03/19/2025 1 1 [facility] Summary Purpose Family History No Family History [...] FoundDocuments on File Type Date Recorded Patient Room Attendant Expl anation Advance Directive(s) 08/22/2018 2:19 PM Advance Directive(s) 09/21/2010 12:00 AM Advance Directive(s) 09/21/2006 12:00 AM Advance Directive Response Recorded Date/ Time Advance Directives No March 09 11:09am Documents on File Type Date Recorded Patient Room Attendant Expl anation Advance Directive(s) 09/21/2010 Advance Directive(s) 09/21/2006 Documents on File Type Date Recorded Patient Room Attendant Expl anation Advance Directive(s) 09/21/2010 Advance Directive(s) 09/21/2006 Chief Complaint and Reason for Visit Chief Complaint Menorrhagia, Dysmeno rrhea, Enlarged Uterus, Uterin Chief Complaint exercise Obesity Chief Complaint R11.0 Reason for Referral Specialty Diagnoses / Procedures Referred By Darcie meraz Referred To Contact MR IMAGING Diagnoses H/O partial nephrectomy Procedures MRI ABDOMEN WO/W IVCON MRI ABDOMEN W/O & W/CONTRAST MATERIAL Tanisha Alvarez APRN.PARTS SALESMAN [address] [place] [address] [facility] [place] [address] Referral ID Status Reason Start Date Expiration Date V isits Requested Visits Authorized [id number] Closed Auto-Generate d Referral 05/12/2022 06/11/2023 1 1 Specialty Diagnoses / Procedures Referred By Darcie meraz Referred To Contact MR IMAGING Diagnoses History of renal cell carcinoma Procedures MRI ABDOMEN WO/W IVCON MRI ABDOMEN W/O & W/CONTRAST MATERIAL Tanisha Alvarez APRN.PARTS SALESMAN [address] [place] [address] [facility] [place] [address] Referral ID Status Reason Start Date Expiration Date Visits Requested Visits Authorized [id number] Pending Review Auto-Generat ed Referral 04/27/2023 05/26/2024 1 1 Additional Source Comments INFORMATION SOURCE (unrecogn ized section and content) DATE CREATED AUTHOR 01/30/2018 [facility] DATE CREATED AUTHOR AUTHOR'S ORGANIZ ATION 07/20/2018 [facility] DATE CREATED AUTHOR AUTHOR'S ORGANIZ ATION 01/07/2022 [facility] DATE CREATED AUTHOR AUTHOR'S ORGANIZ ATION 08/16/2022 [facility] DATE CREATED AUTHOR AUTHOR'S ORGANIZ ATION 12/23/2023 [facility] DATE CREATED AUTHOR AUTHOR'S ORGANIZ ATION 03/16/2024 [facility] DATE CREATED AUTHOR AUTHOR'S ORGANIZ ATION 04/14/2024 [facility] DATE CREATED AUTHOR AUTHOR'S ORGANIZ ATION 04/15/2024 [facility] d[facility] Specialists EPIC Source Comments (unrecognize d section and content) In the event this informatio n is protected by the Federal Confidentiality of Alcohol and Drug Abuse Patient Records regulations: The Federal rules restrict any use of the information to criminally investigate or prosecute any alcohol or drug abuse patient.[facility] CenterIn the event this information is protected by the Federal Confidentiality of Alcohol and Drug Abuse Patient Records regulations: The Federal rules restrict any use of the information to criminally investigate or prosecute any alcohol or drug abuse patient.[facility] CenterIn the event this information is protected by the Federal Confidentiality of Alcohol and Drug Abuse Patient Records regulations: The Federal rules restrict any use of the information to criminally investigate or prosecute any alcohol or drug abuse patient.[facility] CenterIn the event this information is protected by the Federal Confidentiality of Alcohol and Drug Abuse Patient Records regulations: The Federal rules restrict any use of the information to criminally investigate or prosecute any alcohol or drug abuse patient.[facility] CenterIn the event this information is protected by the Federal Confidentiality of Alcohol and Drug Abuse Patient Records regulations: The Federal rules restrict any use of the information to criminally investigate or prosecute any alcohol or drug abuse patient.[facility] CenterIn the event this information is protected by the Federal Confidentiality of Alcohol and Drug Abuse Patient Records regulations: The Federal rules restrict any use of the information to criminally investigate or prosecute any alcohol or drug abuse patient.[facility] CenterIn the event this information is protected by the Federal Confidentiality of Alcohol and Drug Abuse Patient Records regulations: The Federal rules restrict any use of the information to criminally investigate or prosecute any alcohol or drug abuse patient.[facility] CenterIn the event this information is protected by the Federal Confidentiality of Alcohol and Drug Abuse Patient Records regulations: The Federal rules restrict any use of the information to criminally investigate or prosecute any alcohol or drug abuse patient.[facility] CenterIn the event this information is protected by the Federal Confidentiality of Alcohol and Drug Abuse Patient Records regulations: The Federal rules restrict any use of the information to criminally investigate or prosecute any alcohol or drug abuse patient.[facility] CenterIn the event this information is protected by the Federal Confidentiality of Alcohol and Drug Abuse Patient Records regulations: The Federal rules restrict any use of the information to criminally investigate or prosecute any alcohol or drug abuse patient.[facility] CenterIn the event this information is protected by the Federal Confidentiality of Alcohol and Drug Abuse Patient Records regulations: The Federal rules restrict any use of the information to criminally investigate or prosecute any alcohol or drug abuse patient.[facility] CenterIn the event this information is protected by the Federal Confidentiality of Alcohol and Drug Abuse Patient Records regulations: The Federal rules restrict any use of the information to criminally investigate or prosecute any alcohol or drug abuse patient.[facility] CenterIn the event this information is protected by the Federal Confidentiality of Alcohol and Drug Abuse Patient Records regulations: The Federal rules restrict any use of the information to criminally investigate or prosecute any alcohol or drug abuse patient.[facility] Reason for Visit (unrecogniz ed section and content) Reason Comments Chronic Migraine Reason Comments Insurance Authorization Aimovig 70mg Reason Onset Date Comments Refill Request 03/24/2023 Reason Comments Radio Gen HB6 Reason Comments Follow Up Reason Comments Radiology MRI Specialty Diagnoses / Procedures Referred By Contac t Referred To Contact MR IMAGING Diagnoses H/O partial nephrectomy Procedures MRI ABDOMEN WO/W IVCON MRI ABDOMEN W/O & W/CONTRAST MATERIAL Tanisha Alvarez APRN.PARTS SALESMAN [address] [place] [id number] [id number] Referral ID Status Reason Start Date Expiration Date V isits Requested Visits Authorized [id number] Closed Auto-Generate d Referral 05/12/2022 06/11/2023 1 1 Reason Comments Research 24-953 Pain Avoidanc e Behavior in Migraine Patients Care Teams (unrecognized sec tion and content) Team Status: Active Member Role Status Dates Trae Julian MD Primary Care Provider Active Team Status: Inactive Member Role Status Dates ELDER Jackson Attending Provider Active S tart: December 11, 2023 End: December 11, 2023 Trae Julian MD Primary Care Provider Active St art: December 11, 2023 End: December 11, 2023 Defense Travel Administrator Relationship Specialty Start Date End Date Trae Julian MD [address] [place] [address] PCP - General Internal Medicine 05/28/20 Trae [place], [place] [id number] Pediatrics 09/27/20 Trae Julian MD [address] [place] [address] Internal Medicine 09/27/20 Defense Travel Administrator Relationship Specialty Start Date End Date Trae Julian MD [address] [place] [address] PCP - General Internal Medicine 05/28/20 Trae [place] [facility] [place] [address] Pediatrics 09/27/20 Trae Julian MD [address] [place] [address] Internal Medicine 09/27/20 Team Status: Inactive Member Role Status Izaiah Julian MD Primary Care Provider Active Zane Mantilla DO Attending Provider Active Team Status: Active Member Role Status Izaiah Julian MD Primary Care Provider Active Gualberto Jacobsen MD Attending Provider Active Team Status: Inactive Member Role Status Izaiah Julian MD Primary Care Provider Active Gualberto Jacobsen MD Attending Provider Active Defense Travel Administrator Relationship Specialty Start Date End Date Trae Julian MD [address] [place] [address] PCP - General Internal Medicine 05/28/20 Trae Boston [facility] [place] [address] Pediatrics 09/27/20 Trae Julian MD [address] [place] [address] Internal Medicine 09/27/20 Defense Travel Administrator Relationship Specialty Start Date End Date Trae Julian MD [address] [place] [address] PCP - General Internal Medicine 05/28/20 [place] [address] Pediatrics 09/27/20 Trae Julian MD [address] [place] [address] Internal Medicine 09/27/20 Defense Travel Administrator Relationship Specialty Start Date End Date Trae Julian MD [address] [place] [address] PCP - General Internal Medicine 05/28/20 [place] [address] Pediatrics 09/27/20 Trae Julian MD [address] [place] [address] Internal Medicine 09/27/20 Defense Travel Administrator Relationship Specialty Start Date End Date Trae Julian MD [address] [place] [address] PCP - General Internal Medicine 05/28/20 Trae [place], [place] [address] Pediatrics 09/27/20 Trae Julina MD [address] [place] [address] Internal Medicine 09/27/20 Defense Travel Administrator Relationship Specialty Start Date End Date Trae Julian MD [address] [place] [address] PCP - General Internal Medicine 05/28/20 [place] [address] Pediatrics 09/27/20 Trae Julian MD [address] [place] [address] Internal Medicine 09/27/20 Defense Travel Administrator Relationship Specialty Start Date End Date Trae Julian MD [address] [place] [address] PCP - General Internal Medicine 05/28/20 [place] [address] Pediatrics 09/27/20 Trae Julian MD [address] [place] [address] Internal Medicine 09/27/20 Defense Travel Administrator Relationship Specialty Start Date End Date Trae Julian MD [address] [place] [address] PCP - General Internal Medicine 05/28/20 [place] [address] Pediatrics 09/27/20 Trae Julian MD [address] [place] [address] Internal Medicine 09/27/20 Defense Travel Administrator Relationship Specialty Start Date End Date Trae Julian MD [address] [place] [address] PCP - General Internal Medicine 05/28/20 [place] [address] Pediatrics 09/27/20 Trae Julian MD [address] [place] [address] Internal Medicine 09/27/20 Defense Travel Administrator Relationship Specialty Start Date End Date Trae Julian MD [address] [facility] [address] [place] [address] PCP - General Internal Medicine 05/28/20 [place] [address] Pediatrics 09/27/20 Trae Julian MD [address] [place] [address] Internal Medicine 09/27/20 Goals (unrecognized section and content) Goals may be documented in a n alternate sectionNo InformationNo InformationNo InformationNo InformationNo InformationNo InformationNo InformationGoals may be documented in an alternate sectionGoals may be documented in an alternate sectionGoals may be documented in an alternate section No data available for this section FOR RECORDS PERTAINING TO PATIENTS WHO [...] BE BASED ON THE PRIMARY CLINICAL RECORDS. [employer] [facility]. provides no warranty or guarantee of the accuracy or completeness of information in this document.
== END 2024-04-21 12:59 | disposition home or self-care (01) ==
LOC: RAD 13:00
PROVIDERS: PCP Internal Medicine; Visit Provider Internal Medicine
DX: R05.1 Acute cough (principal); J01.40 Acute pansinusitis, unspecified
CPT/HCPCS: 71046

== ENCOUNTER 2025-02-23 11:51 | Emergency (ER) | payer OTHER, SELFPAY ==
[2025-02-23] VITALS (8 sets, daily range): BP systolic 127–150; BP diastolic 81–86; PULSE 57–69; TEMP 36.7; O2SAT 96–100; BMI 38.1
--- OUTSIDE RECORDS SUMMARY | 2025-02-23 11:57 | XMS_ITS | Clinical Summary ---
Author Organization [employer] tem Address [id number] [address] [place] [address] Care Team Providers Care Insurance Professional Name Role Phone Unavailable Primary Care Provider Unavailabl e Social History Tobacco Use Types Packs/Day Years Used Date Smoking Tobacco: Never Assessed Childcare Answer Date Recorded Childcare Unknown 01/15/2019 Employment Answer Date Recorded Employment Unknown 01/15/2019 Purpose - Life Answer Date Recorded Purpose and direction in life Unknown Comments Unknown Sex and Gender Information Value Date Recorded Sex Assigned at Not on file Legal Sex Female 11:35 AM EDT Gender Identity Not on file Sexual Orientation Not on file Plan of Treatment Health Maintenance Due Date Last Done Comments Depression Screening 1989 Tobacco Screening 1989 Adult BMI Screening 1995 DTaP,Tdap and Td Vaccines (1 - Tdap) 02/01/1996 Pap Smear 1998 Influenza Vaccine 04/06/2025 Medical Devices Not on file Insurance [employer]ICA[employer]
[2025-02-23 12:43] LABS: Hematocrit 43.2 % (36.0-48.0); Hemoglobin 14.8 g/dL (12.0-16.0); Immature Granulocytes Abs Auto 0.02 10^3/uL (0.00-0.03); Immature Granulocytes Pct Auto 0.2 % (0.0-0.5); Lymphocytes Absolute Auto 2.7 10^3/uL (1.2-3.8); Mean Corpuscular HGB Conc 34.3 g/dL (29.9-35.2); Mean Corpuscular Hemoglobin 30.1 pg (26.7-34.0); Mean Corpuscular Volume 87.8 fL (81.0-99.0); Platelet Count 304 10^3/uL (150-450); Red Blood Count 4.92 10^6/uL (4.20-5.40); White Blood Count 9.6 10^3/uL (4.0-11.0)
[2025-02-23 12:58] LABS: Alanine Aminotransferase 37 U/L (14-59); Albumin Globulin Ratio 1.2; Albumin Level 4.1 g/dL (3.4-5.0); Alkaline Phosphatase 67 U/L (46-116); Anion Gap 12.9; Aspartate Amino Transferase 18 U/L (15-37); Blood Urea Nitrogen 10.0 mg/dL (7.0-18.0); Calcium 9.1 mg/dL (8.5-10.1); Carbon Dioxide 29.4 mmol/L (21.0-32.0); Chloride 107 mmol/L (98-107); Estimated GFR (African America >60 (>=60 mL/min/1.73m^2); Estimated GFR (Non-African Ame >60 (>=60 mL/min/1.73m^2); Globulin 3.3 g/dL; Glucose 103 mg/dL (74-106); Potassium 3.3 mmol/L (3.5-5.1); Sodium 146 mmol/L (136-145); Total Protein 7.4 g/dL (6.4-8.2)
[2025-02-23 13:00] LABS: Lipase 35.0 U/L (16.0-77.0)
[2025-02-23 13:04] LABS: Glucose Urine UA NEGATIVE (NEGATIVE)
[2025-02-23 13:10] LABS: Cast Seen? NONE SEEN #/LPF (NONE SEEN); Crystals Seen? None Seen #/HPF (None Seen); Urine Culture Indicated NO
--- NOTE | 2025-02-23 14:02 | CT_ITS ---
The [address] [address] Patient Name: LUCRECIA LAWTON MRN: [id number] date: 1975 Sex: F Assigned Patient Location: ER Current Patient Location: ER Accession/Order Number: [id number] Exam Date: 02/23/2025 14:57 Report Date: 02/23/2025 14:59 At the request of: RACHEL CHAND MD Procedure: CT abdomen pelvis w con CT ABDOMEN AND PELVIS WITH INTRAVENOUS CONTRAST: CLINICAL HISTORY: upper abd pain COMPARISON: None TECHNIQUE: Spiral images were obtained through the abdomen and pelvis following the administration of intravenous contrast. This CT exam was performed using one or more following dose reduction techniques: Automated exposure control, adjustment of the mA and/or kV according to patient size, or use of iterative reconstruction technique. FINDINGS: Lung Bases: [No acute process.] Organs:Hepatic steatosis. Cholelithiasis. Liver pancreas and adrenal glands all appear unremarkable. No enhancing renal mass or hydronephrosis. Partial nephrectomy changes inferior pole right kidney. Small cyst superior pole right kidney. Aorta appears normal in caliber.[ GI: Stomach is grossly unremarkable. Small bowel appears nondilated. Appendix is normal. No acute colonic abnormality.[ Pelvis:[Urinary bladder appears unremarkable. Uterus has been removed. Presumed follicular changes involving the ovaries. Peritoneum/Retroperitoneum:No free air or free fluid or lymphadenopathy.[ Abd wall/Bones:Abdominal wall demonstrate no acute findings. Osseous structures demonstrate no acute findings. Bone island involving the left hip.[ CT/CT abdomen pelvis w con IMPRESSION: No acute findings. Hepatic steatosis with cholelithiasis. Impression dictated by: Luis Noble Jr., D.O. 02/23/2025 2:59 PM Dictation Location: [place] [address] Electronically authenticated by: [id number] Y Date: 02/23/2025 14:59
--- NOTE | 2025-02-23 14:03 | ED_ITS ---
HPI - Abdominal Pain General Chief Complaint: Abdominal Pain Stated Complaint: ABDOMINAL PAIN Time Seen by Provider: 02/23/25 12:12 History of Present Illness HPI narrative: 50-year-old female to the emergency department chief complaint of upper abdominal pain. Patient reports for the last few days she has had intermittent pain in her left upper quadrant. It occurs with eating. It is a sharp spasm- like pain. It resolves on its own. She denies any fever, sweats, chills. Is associate with nausea. No vomiting. No dark tarry stools. She has a gallbladder. Related Data Previous Rx's �Medication �Instructions �Recorded ondansetron 4 mg disintegrating 4 mg PO Q8H PRN nausea and 02/23/25 tablet vomiting 4 days #16 tabs pantoprazole 40 mg tablet,delayed 40 mg PO DAILY 4 wee ks #28 tabs 02/23/25 release (Protonix) sucralfate 1 gram tablet (Carafate) 1 g PO BID 7 days #14 tabs 02/23/25 Allergies Allergy/AdvReac Type Severity Reaction Status Date / Time Sulfa (Sulfonamide Allergy Severe Rash Verified 02/23/25 11:55 Antibiotics) Review of Systems ROS Status of ROS 10 or more systems reviewed and unremark able except as noted in history and below PFSH PFSH Social History Little interest or pleasure in doing things: not at all Feeling down, depressed, or hopeless: not at all Exam Narrative Exam Narrative: VITALS: I have reviewed the triage vital signs. GENERAL: Well developed, well appearing adult in no acute distress. NEURO: Alert and oriented. Moves all extremities. Face is symmetric and expressive. EYES: PERRL. No scleral icterus or conjunctival injection. No discharge. HENT: Normocephalic, atraumatic. Hearing is grossly intact. Nares grossly patent and without discharge. Mucous membranes moist. NECK: No JVD. Patient moves neck without restriction. CARDIO: Rhythm regular. Normal rate. No murmur, rub, or gallop. Pulses equal bilaterally in the upper and lower extremity. No lower extremity edema. PULM: Lungs clear to auscultation in all baker. No wheezes, rales, or rhonchi. No conversational dyspnea. No splinting, stridor, or accessory muscle use. GI/: Abdomen is soft. Mild left upper quadrant tenderness. Normoactive bowel sounds. EXTREMITIES: Symmetric muscle bulk. No joint swelling. No clubbing, cyanosis, or deformity. SKIN: Warm and dry. Normal turgor. No rash or lesions appreciated. PSYCH: Mood, affect, and interaction is appropriate to the setting. Constitutional Vital Signs, click to edit/add: Last Vital Signs Temp 98.1 F 02/23/25 14:05 Pulse 58 L 02/23/25 15:30 Resp 15 02/23/25 15:30 BP 127/81 02/23/25 14:05 Pulse Ox 96 02/23/25 14:05 O2 Del Method Room Air 02/23/25 14:05 Course Vital Signs Vital signs: Vital Signs Temperature 98.1 F 02/23/25 11:55 Pulse Rate 69 02/23/25 11:55 Respiratory Rate 16 02/23/25 11:55 Blood Pressure 150/86 H 02/23/25 11:55 Pulse Oximetry 100 02/23/25 11:55 Oxygen Delivery Method Room Air 02/23/25 11:55 Temperature 98.1 F 02/23/25 14:05 Pulse Rate 58 L 02/23/25 15:30 Respiratory Rate 15 02/23/25 15:30 Blood Pressure 127/81 02/23/25 14:05 Pulse Oximetry 96 02/23/25 14:05 Oxygen Delivery Method Room Air 02/23/25 14:05 MDM - Abdominal Pain MDM Narrative Medical decision making narrative: 50-year-old female to the emergency department with chief complaint of left upper quadrant pain. Vital stable, the patient is afebrile. Abdominal examination is benign. Sent by PCP for imaging. Lab work reviewed noted. No major abnormalities. Troponin negative. EKG without acute findings. CT scan with hepatic steatosis, cholelithiasis Patient follows with Dr. Armstrong. She already has plan for scope. Will treat with Protonix, Carafate, Zofran while she is awaiting scope. Biliary colic versus gastritis/ulcer. Return precautions were discussed. All questions were answered. Patient agrees with plan. The patient was discharged home. Medical Records Attestation: I reviewed the patient's medical records. Lab Data Attestation: I reviewed the patient's lab results. Labs: Lab Results 02/23/25 Range/Units 12:32 WBC 9.6 (4.0-11.0) 10^3/uL RBC 4.92 (4.20-5.40) 10^6/uL Hgb 14.8 (12.0-16.0) g/dL Hct 43.2 (36.0-48.0) % MCV 87.8 (81.0-99.0) fL MCH 30.1 (26.7-34.0) pg MCHC 34.3 (29.9-35.2) g/dL RDW 12.8 (11.0-15.0) % Plt Count 304 (150-450) 10^3/uL MPV 10.1 (9.5-13.5) fL Neut % (Auto) 64.2 (43.0-75.0) % Lymph % (Auto) 28.0 (20.5-60.0) % [place] % (Auto) 5.6 (1.7-12.0) % Eos % (Auto) 1.4 (0.9-7.0) % Baso % (Auto) 0.6 (0.2-2.0) % Neut # (Auto) 6.1 (1.4-6.5) 10^3/uL Lymph # (Auto) 2.7 (1.2-3.8) 10^3/uL [place] # (Auto) 0.5 (0.3-0.8) 10^3/uL Eos # (Auto) 0.1 (0.0-0.7) 10^3/uL Baso # (Auto) 0.1 (0.0-0.1) 10^3/uL Abs Immat Gran (auto) 0.02 (0.00-0.03) 10^3/uL Imm/Tot Granulo (auto) 0.2 (0.0-0.5) % Sodium 146 H (136-145) mmol/L Potassium 3.3 L (3.5-5.1) mmol/L Chloride 107 (98-107) mmol/L Carbon Dioxide 29.4 (21.0-32.0) mmol/L Anion Gap 12.9 BUN 10.0 (7.0-18.0) mg/dL Creatinine 0.55 (0.55-1.02) mg/dL Est GFR ( Amer) >60 (>=60 mL/min/1.73m^2) Est GFR (Non-Af Amer) >60 (>=60 mL/min/1.73m^2) BUN/Creatinine Ratio 18.2 Glucose 103 (74-106) mg/dL Calcium 9.1 (8.5-10.1) mg/dL Total Bilirubin 0.8 (0.2-1.0) mg/dL AST 18 (15-37) U/L ALT 37 (14-59) U/L Alkaline Phosphatase 67 (46-116) U/L Troponin I High Sens <4.0 L (4.0-51.3) pg/mL Total Protein 7.4 (6.4-8.2) g/dL Albumin 4.1 (3.4-5.0) g/dL Globulin 3.3 g/dL Albumin/Globulin Ratio 1.2 Lipase 35.0 (16.0-77.0) U/L Serum HCG, Qual Negative (NEGATIVE) Urine Color Lt. yellow (YELLOW) Urine Clarity Clear (CLEAR) Urine pH 6.5 (5.0-9.0) Ur Specific [place] 1.010 (1.005-1.025) Urine Protein Negative (NEG/TRACE) mg/dL Urine Glucose (UA) Negative (NEGATIVE) mg/dL Urine Ketones Negative (NEGATIVE) mg/dL Urine Occult Blood Trace-i (NEGATIVE) Urine Nitrite Negative (NEGATIVE) Urine Bilirubin Negative (NEGATIVE) Urine Urobilinogen 0.2 (0.2-1.0) EU/dL Ur Leukocyte Esterase Negative (NEGATIVE) Urine RBC 0-2 (0-2) #/HPF Urine WBC None seen (NONE SEEN) #/HPF Ur Squamous Epith Cells Rare (NONE/RARE) #/LPF Urine Crystals None seen (None Seen) #/HPF Urine Bacteria Trace A (NONE SEEN) #/HPF Urine Casts None seen (NONE SEEN) #/LPF Urine Mucus None seen (NONE SEEN) Ur Culture Indicated? No Imaging Data CT scan - abdomen: Attestation: I have reviewed the pertinent imaging results. Radiologist's impression: ITS Impressions Abdomen/Pelvis CT 02/23/25 14:02 IMPRESSION: No acute findings. Hepatic steatosis with cholelithiasis. Impression dictated by: Luis Noble Jr., D.O. 02/23/2025 2:59 PM Dictation Location: [place] [address] Electronically authenticated by: [id number] Y Date: 02/23/2025 14:59 ECG Data Attestation: I personally reviewed and interpreted this ECG as follows: Discharge Plan Discharge Chief Complaint: Abdominal Pain Clinical Impression: Acute epigastric pain Patient Disposition: Home, Self-Care Time of Disposition Decision: 15:45 Condition: Good Mode of Transportation: Private Vehicle Prescriptions / Home Meds: New ondansetron 4 mg tablet,disintegrating 4 mg PO Q8H PRN (Reason: nausea and vomiting) 4 Days Qty: 16 0RF pantoprazole [Protonix] 40 mg tablet,delayed release (DR/EC) 40 mg PO DAILY 28 Days Qty: 28 0RF sucralfate [Carafate] 1 gram tablet 1 g PO BID 7 Days Qty: 14 0RF Print Language: Guyanese Instructions: Acute Abdominal Pain (ED) Referrals: MAHNAZ ARMSTRONG V [Physician, Oncology] - 1 week TRAE JULIAN [Primary Care Provider, Internal Medicine] - 1 week Discharge Date/Time: 02/23/25 15:55
--- NOTE | 2025-02-23 14:06 | ECG_ITS ---
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 Measurements Intervals [place] Rate: 58 P: 30 [place]: 170 QRS: 30 QRSD: 84 T: 24 QT: 438 QTc: 434 Interpretive Statements 1100 Sinus rhythm 8102 Low QRS voltage in chest leads 9120 atypical ECG No previous ECG available for comparison Electronically Signed On 02-23-2025 18:32:17 EDT by BEREKET LANGLEY M.D.
== END 2025-02-23 15:55 | disposition home or self-care (01) ==
PROVIDERS: Emergency Provider Student in an Organized Health Care Education/Training Program; PCP Internal Medicine
DX: R10.13 Epigastric pain (principal); K80.20 Calculus of gallbladder without cholecystitis without obstruction; K76.0 Fatty (change of) liver, not elsewhere classified
CPT/HCPCS: 36415; 74177; 80053; 81001; 83690; 84484; 84703; 85025; 93005; 99285; Q9967